=== PATIENT | female | born 1935 | race Caucasian/White ===

== ENCOUNTER → 2018-02-28 | Outpatient (CLI) | payer MEDICARE, OTHER ==
--- NOTE | 2018-03-01 18:15 | WOMENS IMAGING REPORT ---
EXAM DESCRIPTION: 3D SCREENING MAMMO BILAT COMPLETED DATE/TIME: 02/28/2018 1:22 pm REASON FOR STUDY: SCREENING BILATERAL MAMMO/Z12.31 Z12.31 ENCNTR SCREEN MAMMOGRAM FOR MALIGNANT JORJE PLASM OF ABBIE COMPARISON: 2008 to 2013 TECHNIQUE: Standard craniocaudal and mediolateral oblique views of each breast recorded using digita l acquisition and breast tomosynthesis. LIMITATIONS: None. FINDINGS: No masses, calcifications or architectural distortion. No areas of suspicion. Read with the assistance of CAD. .[facility] - R2 Cenova Version 1.3 .[facility] Imaging - R2 Cenova Version 1.3 .[facility] Imaging - R2 Cenova Version 2.4 .[facility] - R2 Cenova Version 2.4 .[facility] - R2 Enrobing Machine Corder Version 9.2 IMPRESSION: NORMAL MAMMOGRAM. BIRADS 1. BREAST DENSITY: b. There are scattered areas of fibroglandular density. BIRAD: 1 NEGATIVE RECOMMENDATION: ROUTINE SCREENING COMMENT: The patient has been notified of the results by letter per SA requirements. Additional no tification policies are in place for contacting patient with suspicious or incomplete findings. Quality ID #[id number]: The [employer] recommends an annual screening mammogram for women aged 40 years or over. This facility utilizes a reminder system to ensure that all patients receive reminder letters, and/or direct phone calls for appointments. This includes reminders for routine scr eening mammograms, diagnostic mammograms, or other Breast Imaging Interventions when appropriate. Th is patient will be placed in the appropriate reminder system. The [employer] (ACR) has developed recommendations for screening MRI of the breast s in certain patient populations, to be used in conjunction with mammography. Breast MRI surveillanc e may be appropriate for women with more than 20% lifetime risk of developing breast cancer as deter mined by genetic testing, significant family history of the disease, or history of mantle radiation f or Hodgkins Disease. ACR Practice Guidelines 2008. DBT Technology DBT is a type of tomographic mammography. With conventional mammography, overlapping breast tissue ma y make lesions difficult to detect, even with good compression. DBT uses an x-ray tube that rotates a round the breast, taking images at different angles. These images are then combined to create thin sl ices of the breast that the radiologist can view as a 3D reconstruction. The [employer] unit can perform full-field digital mammograms (2D imaging); or DBT (3D imaging); or both, in a combination mode that quickly performs both the mammogram and the tomosynthesis scan while the breast is still compressed. PQRS 6045F: Fluoroscopic imaging is not utilized for breast tomosynthesis. TECHNICAL DOCUMENTATION: FINDING NUMBER: (1) ASSESSMENT: (1) JOB ID: [id number] [employer]- All Rights Reserved Reading location - IP/workstation name: [email or web address]
== END ==
LOC: WI 12:45
PROVIDERS: ATTEND Internal Medicine
DX: Z12.31 Encounter for screening mammogram for malignant neoplasm of breast (principal)
CPT/HCPCS: 77063; 77067

== ENCOUNTER → 2018-05-08 | Outpatient (CLI) | payer MEDICARE, OTHER ==
--- NOTE | 2018-05-08 15:17 | RADIOLOGY REPORT (SQ) ---
EXAM DESCRIPTION: KUB COMPLETED DATE/TIME: 05/08/2018 12:56 pm REASON FOR STUDY: K59.01, CONSTIPATION-SLOW TRANSIT COMPARISON: None. NUMBER OF VIEWS: One view. TECHNIQUE: Supine radiographic image of the abdomen acquired. LIMITATIONS: None. FINDINGS: BOWEL GAS PATTERN: Normal bowel gas pattern. No dilated loops. CALCIFICATIONS: No suspicious calcifications. SOFT TISSUES: No gross mass or suggestion of organomegaly. HARDWARE: Surgical clips are identified in the right upper quadrant and right pelvis P BONES: Extensive degenerative changes are identified in the lumbar spine. There appears to be cortic al irregularity and associated bony sclerosis at the L1-L2 disc space level and the possibility of a discitis cannot be excluded. Lumbar spine films may be of value for further evaluation. Clinical co rrelation is recommended. OTHER: No other significant finding. IMPRESSION: NO RADIOGRAPHIC EVIDENCE FOR ACUTE ABDOMINAL DISEASE. Other findings as noted above. TECHNICAL DOCUMENTATION: JOB ID: [id number] [employer]- All Rights Reserved Reading location - IP/workstation name: [email or web address]
== END ==
LOC: OD 12:31
PROVIDERS: ATTEND Internal Medicine Gastroenterology
DX: K59.01 Slow transit constipation (principal)
CPT/HCPCS: 74018

== ENCOUNTER 2018-06-13 15:23 | Day surgery (SDC) | payer MEDICARE, OTHER ==
[2018-06-13] MEDS ORDERED: FENTANYL CITRATE INJ/PF 100 MCG/2 ML AMPUL ONE (15:27)
[2018-06-13] MEDS ORDERED: ONDANSETRON HCL INJ/PF 4 MG/2 ML SDV ONE (15:27)
[2018-06-13] MEDS ORDERED: NALOXONE HCL INJ/PF 0.4 MG/1 ML SDV ONE (15:28)
[2018-06-13] MEDS ORDERED: GLUCAGON,HUMAN RECOMB 1 MG INJ ONE (15:28)
[2018-06-13] MEDS ORDERED: EPINEPHRINE INJ 1 MG/10 ML DISP.SYRIN ONE (15:28)
[2018-06-13] MEDS ORDERED: FLUMAZENIL INJ 0.5 MG/5 ML VIAL ONE (15:28)
[2018-06-13] MEDS: MIDAZOLAM 2 MG/2 ML INJ ONE ×2 (16:26→16:30)
--- NOTE | 2018-06-13 16:54 | Operative Report ---
Operative Report DATE OF SURGERY: 06/13/18 Operative Report: Pre-op diagnosis: History of colon polyps and rectal bleeding with pressure Post-op diagnosis: 1. Pancolonic diverticulosis 2. Internal hemorrhoids 3. Incompetent anal sphincter Surgery: Colonoscopy Medications: Versed 2mg, Fentanyl 50mcg IV push Tissue removed: None Procedure: After informed consent obtained from patient, conscious sedation was achieved. A digital rectal examination was performed and this showed an incompetent sphincter. The colonoscope was inserted into the rectum and advanced to the cecum. The appendiceal orifice and the terminal ileum were both identified. The mucosa was examined into details as the colonoscope was slowly pulled out of the patient. The endoscope was retroflexed in the rectum. Patient tolerated the procedure well. Findings Cecum: Normal Ascending colon: Moderate diverticuli Transverse colon: Multiple diverticuli Descending colon: Mild to moderate diverticuli Sigmoid colon: Multiple diverticuli Rectum: Normal except for internal hemorrhoids Plan: High-fiber diet and fiber supplements OPERATION: .
[2018-06-13 17:38] VITALS: BP 140/98
== END 2018-06-13 17:45 | disposition home or self-care (01) ==
LOC: END 15:23
PROVIDERS: ATTEND Internal Medicine Gastroenterology
DX: K62.5 Hemorrhage of anus and rectum (principal); K57.30 Diverticulosis of large intestine without perforation or abscess without bleeding; K64.8 Other hemorrhoids; Z86.010 Personal history of colon polyps; I10 Essential (primary) hypertension
CPT/HCPCS: 45378; 82962; J2250; J3010; J0171; J1610; J2310; J2405; J3490

== ENCOUNTER → 2018-07-27 | Outpatient (CLI) | payer MEDICARE, OTHER ==
--- NOTE | 2018-07-27 13:41 | WOMENS IMAGING REPORT ---
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 TECHNIQUE: Dual-Energy X-ray Absorptiometry (DEXA) of the AP Spine and Hip. LIMITATIONS: None. FINDINGS: LUMBAR SPINE: The bone mineral density (BMD) measured from L1-L4 in the AP projection correlates with a T-score of 2.5, which is normal as defined by the World Health Organization. HIP: The bone mineral density (BMD) measured in the left hip correlates with a T-score of -0.6, which is n ormal as defined by the World Health Organization. IMPRESSION: 1. LUMBAR SPINE: NORMAL. 2. HIP: NORMAL. COMMENT: The World Health Organization defines low BMD as follows: T-score: Normal: Greater than -1.0 Osteopenia: Between -1.0 and -2.5 Osteoporosis: Less than -2.5 without fractures Established osteoporosis: Less than -2.5 with fractures In general, you may wish to consider: Diagnosis Treatment Follow-up DEXA Normal BMD Prevention 2-3 years Osteopenia Prevention/Therapy 1-2 years Osteoporosis Therapy Yearly TECHNICAL DOCUMENTATION: JOB ID: [id number] [employer]- All Rights Reserved Reading location - IP/workstation name: [email or web address]
== END ==
LOC: WI 12:41
PROVIDERS: ATTEND Internal Medicine
DX: M81.0 Age-related osteoporosis without current pathological fracture (principal)
CPT/HCPCS: 77080

== ENCOUNTER → 2019-02-01 | Outpatient (CLI) | payer MEDICARE, OTHER ==
--- NOTE | 2019-02-01 15:35 | RADIOLOGY REPORT (SQ) ---
EXAM DESCRIPTION: KUB/ABDOMEN (SINGLE VIEW) COMPLETED DATE/TIME: 02/01/2019 2:17 pm REASON FOR STUDY: CONSTIPATION; SLOW TRANSIT (K59.01) K59.01 SLOW TRANSIT CONSTIPATION COMPARISON: None. NUMBER OF VIEWS: One view. TECHNIQUE: Supine radiographic image of the abdomen acquired. LIMITATIONS: None. FINDINGS: BOWEL GAS PATTERN: Normal bowel gas pattern. No dilated loops. CALCIFICATIONS: No suspicious calcifications. SOFT TISSUES: No gross mass or suggestion of organomegaly. HARDWARE: None in the abdomen. BONES: Lumbar degenerative changes. OTHER: No other significant finding. IMPRESSION: Lumbar degenerative changes. No acute finding in the abdomen. TECHNICAL DOCUMENTATION: JOB ID: [id number] [employer]- All Rights Reserved Reading location - IP/workstation name: [email or web address]
== END ==
LOC: RAD 13:40
PROVIDERS: ATTEND Internal Medicine Gastroenterology
DX: K59.01 Slow transit constipation (principal)
CPT/HCPCS: 74018

== ENCOUNTER 2019-06-15 15:20 | Emergency (ER) | payer MEDICARE, OTHER ==
--- NOTE | 2019-06-15 16:59 | ER Document Report ---
ED General - General Chief Complaint: Hip Pain Stated Complaint: PAIN IN HIP Time Seen by Provider: 06/15/19 16:55 Primary Care Provider: FRANDY MARKS MD [Primary Care Provider] - 06/17/19 TRAVEL OUTSIDE OF THE [place] IN LAST 30 DAYS: No - HPI Context: This is a 83-year-old female who presents via EMS for evaluation of pelvis pain, patient x3 to 4 days, and blood in her underwear. Initial vital signs by EMS are as follows blood pressure 114/60, heart rate 73, respiratory rate is 18, O2 sat is 93%. Patient is complaining of low back pain that radiates down the back of both buttocks and into both legs bilaterally. The patient states she is also having trouble with urinary and stool incontinence. Patient states she has a history of osteomyelitis in her lumbar vertebra back in 2007 and she also feels like "things are falling out" of her vagina and rectum. Notes: Patient presents complaining of low back pain that radiates down the back of both buttocks and down the posterior both legs. Patient denies urinary retention or bowel incontinence but states that she is had a long period of urinary leakage that requires her to wear a pad and from time to time stool leakage. Patient states she has severe back pain that started 5 days ago. Patient denies foot drop. Patient also feels like something is "dropping down inside her vagina". Patient denies chest pain, shortness of breath, abdominal pain. Differential diagnosis: Degenerative disc disease, sciatica, cord compression, cauda equina - Related Data Allergies/Adverse Reactions: ciprofloxacin [From Cipro] Allergy (Intermediate, Verified 06/13/18 15:33) rash ciprofloxacin HCl [From Cipro] Allergy (Intermediate, Verified 06/13/18 15:33) rash vancomycin [Vancomycin] Allergy (Intermediate, Verified 06/13/18 15:33) rash Past Medical History - Social History Smoking Status: Never Smoker Chew tobacco use (# tins/day): No Drug Abuse: None Family History: Reviewed & Not Pertinent Patient has suicidal ideation: No Patient has homicidal ideation: No - Medical History Notes: Patient has a past medical history significant for hypercholesterolemia, hypertension, pneumonia, sleep apnea with as needed CPAP utilization, history of diverticulosis, history of cholecystectomy and 1993, history of kidney stones during the , history of lumbar spine arthritis, left knee osteoarthritis, osteopenia, vertebral (lumbar) osteomyelitis in 2007. Patient also has a history of right patella fracture, left ankle fracture x2 and left forearm fracture. Patient also has a history of hypothyroidism for which she is been on medication for 30 years - Past Medical History Cardiac Medical History: Reports: Hx Hypercholesterolemia - meds x 3 years, Hx Hypertension - meds x 10 years Denies: Hx Atrial Fibrillation, Hx Congestive Heart Failure, Hx Coronary Artery Disease, Hx Heart Attack, Hx Peripheral Vascular Disease, Hx Pulmonary Embolism, Hx Heart Murmur Pulmonary Medical History: Reports: Hx Pneumonia - no hospitalization, Hx Sleep Apnea - "mild", prn CPAP utilization Denies: Hx Asthma, Hx Bronchitis, Hx COPD, Hx Respiratory Failure, Hx Tu berculosis Neurological Medical History: Denies: Hx Seizures Endocrine Medical History: Reports: Hx Hypothyroidism - meds x 30 years. Denies: Hx Graves' Disease, Hx Hyperthyroidism Renal/ Medical History: Reports: Hx Kidney Stones - "passed" no surgery required, . Denies: Hx End Stage Renal Disease, Hx Peritoneal Dialysis Malignancy Medical History: Denies: Hx Lung Cancer GI Medical History: Denies: Hx Crohn's Disease, Hx Gastroesophageal Reflux Disease, Hx Hiatal Hernia, Hx Irritable Bowel, Hx Liver Failure, Hx Pancreatitis, Hx Ulcer Musculoskeletal Medical History: Reports Hx Arthritis - lumbar spine, Denies Hx Fibromyalgia, Denies Hx Muscular Dystrophy, Denies Hx Systemic Lupus Erythematosus Psychiatric Medical History: Reports: Hx Depression - Hx of 1964 & 1972 Denies: Hx Bipolar Disorder, Hx Post Traumatic Stress Disorder, Hx Schizophrenia Traumatic Medical History: Reports: Hx Fractures - RT patella, LEFT ankle x 2 (no surgery), LEFT forearm Past Surgical History: Reports: Hx Cholecystectomy - open 1982, Hx Orthopedic Surgery, Hx Tonsillectomy, Hx Tubal Ligation. Denies: Hx Appendectomy, Hx Bowel Surgery, Hx Section, Hx Colostomy, Hx Coronary Artery Bypass Graft, Hx Gastric Bypass Surgery, Hx Herniorrhaphy, Hx Hysterectomy, Hx Mastectomy, Hx Pacemaker - Immunizations Hx Diphtheria, Pertussis, Tetanus Vaccination: Yes Hx Pneumococcal Vaccination: 08/29/10 Review of Systems - Review of Systems Constitutional: No symptoms reported EENT: No symptoms reported Cardiovascular: No symptoms reported Respiratory: No symptoms reported Gastrointestinal: Diarrhea, Constipation Genitourinary: No symptoms reported Female Genitourinary: Other - urinary incontinence Musculoskeletal: See HPI Skin: No symptoms reported Hematologic/Lymphatic: No symptoms reported Neurological/Psychological: See HPI -: Yes All other systems reviewed and negative Physical Exam - Vital signs Vitals: Temp Pulse Resp BP Pulse Ox 97.4 F 78 18 118/68 97 06/15/19 15:33 06/15/19 15:33 06/15/19 15:33 06/15/19 15:33 06/15/19 15:33 - Notes Notes: PHYSICAL EXAMINATION: GENERAL: Well-appearing, morbidly obese, in no acute distress. HEAD: Atraumatic, normocephalic. EYES: Pupils equal round and reactive to light, extraocular movements intact, sclera anicteric, conjunctiva are normal. ENT: nares patent, oropharynx clear without exudates. Moist mucous membranes. NECK: Normal range of motion, supple without lymphadenopathy LUNGS: Breath sounds clear to auscultation bilaterally and equal. No wheezes rales or rhonchi. HEART: Regular rate and rhythm without murmurs ABDOMEN: Soft, nontender, normoactive bowel sounds. No guarding, no rebound. No masses appreciated. Normal rectal tone. : Normal external genitalia. No uterine prolapse appreciated on exam EXTREMITIES: pt able to abduct and adduct thighs, no pitting or edema. No cyanosis. + SLR left leg at 70 degrees. + SLR right leg at 45 degrees NEUROLOGICAL: No focal neurological deficits. Moves all extremities spontaneously and on command. PSYCH: Normal mood, normal affect. SKIN: Warm, Dry, normal turgor, no rashes or lesions noted. Course - Re-evaluation Re-evalutation: 06/16/19 00:17 Patient urinalysis is significant for leukocyte esterase, nitrites and yeast. Impression and plan: Degenerative disc disease, sciatica, UTI, yeast present in urine. Will give patient one-time dose of Diflucan now along with Keflex. Will discharge patient with prescription for Keflex 500 mg 4 times daily x7 days and prednisone 60 mg p.o. daily x4 days. Will refer pt to Dr. Heath in [place] for further discussion, options for treatment of pt's c/o of urine prolapse. - Vital Signs Vital signs: Temp Pulse Resp BP Pulse Ox 97.4 F 78 18 118/68 97 06/15/19 15:33 06/15/19 15:33 06/15/19 15:33 06/15/19 15:33 06/15/19 15:33 - Laboratory Result Diagrams: 06/15/19 19:00 06/15/19 19:00 Laboratory results interpreted by me: 06/15/19 06/15/19 06/15/19 19:00 19:00 22:42 [place] % (Auto) 16.3 H Carbon Dioxide 31 H BUN 28 H Est GFR (MDRD) Non-Af 54 L Urine Blood SMALL H Urine Nitrite (Reflex) POSITIVE H Urine Urobilinogen 2.0 H Leukocyte Esterase Rfl SMALL H Discharge - Discharge Clinical Impression: Degenerative disc disease, Sciatica, UTI (urinary tract infection) Condition: Stable Disposition: HOME, SELF-CARE Instructions: Urinary Tract Infection ([facility]), Sciatica ([facility]) Additional Instructions: Return to the Emergency Department without delay if any worse. Prescriptions: Prednisone [Deltasone 20 mg Tablet] 3 tab PO DAILY 4 Days #12 tablet Cephalexin Monohydrate [Keflex 500 mg Capsule] 500 mg PO Q6H 7 Days #28 capsule Referrals: FRANDY MARKS MD [Primary Care Provider] - 06/17/19 ROSEMARIE HEATH MD [ACTIVE STAFF] - Follow up as needed (Call for appointment)
[2019-06-15 19:47] LABS: ABSOLUTE LYMPHOCYTES (AUTO) 1.2 10^3/uL (0.5-4.7); ABSOLUTE NEUT (AUTO) 3.7 10^3/uL (1.7-8.2); BASOPHILS % (AUTO) 0.3 % (0-2); HEMATOCRIT 39.6 % (36.0-47.0); HEMOGLOBIN 13.2 g/dL (12.0-15.5); LYMPHOCYTES % (AUTO) 20.4 % (13-45); MEAN CORPUSCULAR HEMOGLOBIN 29.5 pg (27.0-33.4); MEAN CORPUSCULAR HGB CONC 33.2 g/dL (32.0-36.0); MEAN CORPUSCULAR VOLUME 89 fl (80-97); MONOCYTES % (AUTO) 16.3 % (3-13); PLATELET COUNT 167 10^3/uL (150-450); RED BLOOD COUNT 4.46 10^6/uL (3.72-5.28); RED CELL DISTRIBUTION WIDTH 13.7 % (11.5-14.0); TOTAL CELLS COUNTED % (AUTO) 100 %; WHITE BLOOD COUNT 5.9 10^3/uL (4.0-10.5)
[2019-06-15 19:57] LABS: ALBUMIN 3.9 g/dL (3.5-5.0); ALKALINE PHOSPHATASE 54 U/L (38-126); ANION GAP 9 (5-19); ASPARTATE AMINO TRANSFERASE 34 U/L (14-36); BILIRUBIN,DIRECT 0.3 mg/dL (0.0-0.4); BILIRUBIN,TOTAL 0.5 mg/dL (0.2-1.3); BLOOD UREA NITROGEN 28 mg/dL (7-20); CALCIUM 9.9 mg/dL (8.4-10.2); CARBON DIOXIDE 31 mmol/L (22-30); CHLORIDE 100 mmol/L (98-107); GLUCOSE 82 mg/dL (75-110); POTASSIUM 3.8 mmol/L (3.6-5.0); TOTAL PROTEIN 6.6 g/dL (6.3-8.2)
--- NOTE | 2019-06-15 21:09 | RADIOLOGY REPORT (SQ) ---
EXAM DESCRIPTION: RadLex: MR LUMBAR SPINE WITHOUT THEN WITH IV CONTRAST CLINICAL HISTORY: 83 years Female; low back pain, trouble with bowel/bladder fxn TECHNIQUE: MRI lumbar spine with and without contrast using intravenous contrast. COMPARISON: None. FINDINGS: T11-T12: Severe disc space narrowing. Mild posterior disc bulging. Facet arthropathy. Central canal 9 mm. T12-L1: There is old compression fracture deformity of L1, with 80% anterior and 40% posterior loss of height. There is also slight wedging of the T12 vertebral body. Fluid signal is noted in the disc space. There is chronic anterior osteophyte formation with probable fusion. A band of fluid/edema does extend anteriorly to the osteophytes. No acute bone marrow edema. Retropulsion and bilateral facet arthropathy reduce the AP diameter of the central canal to approximately 4 mm, with obliteration of the subarachnoid space. This causes significant deformity of the conus medullaris. L1-L2: Fusion across the disc space. Mild facet hypertrophy. Central canal is 8 mm. L2-L3: Mild disc bulging. Central canal 6 mm. Mild facet arthropathy. L3-L4: Moderate bilateral facet arthropathy. Broad posterior disc bulging and osteophytic ridging. AP diameter of the central canal is reduced to 5 mm, with near obliteration of the subarachnoid space. Moderate bilateral foraminal stenosis. L4-L5: Severe bilateral facet arthropathy. 3 mm anterior subluxation. Severe central canal stenosis. AP diameter of the canal is less than 3-4 mm. L5-S1: Moderate facet arthropathy. Minimal disc bulging. Central canal 6 mm. No acute perivertebral soft tissue edema. No epidural fluid collections. IMPRESSION: 1. 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 2. There is deformity of the conus medullaris due to the T12-L1 central stenosis. This is mostly due to old T12 and L1 fractures. 3. There is fluid in the T12-L1 disc space, but no adjacent bone marrow edema or surrounding soft tissue edema. Although discitis cannot be entirely excluded, likelihood for discitis is low. However, cannot exclude a fracture through the anterior bridging osteophytes at T12-L1.
[2019-06-15] MEDS ORDERED: HYDROMORPHONE HCL INJ/PF 2 MG/ML AMPULE IV ONE (21:59)
[2019-06-15] MEDS ORDERED: ONDANSETRON HCL INJ/PF 4 MG/2 ML SDV IV ONE (22:00)
[2019-06-15] MEDS ORDERED: METHYLPREDNISOLONE INJ 125 MG/2 ML SDV IV ONE (22:04)
[2019-06-16 00:07] LABS: APPEARANCE,URINE CLOUDY; BILIRUBIN,URINE NEGATIVE (NEGATIVE); COLOR,URINE YELLOW; GLUCOSE, URINE NEGATIVE (NEGATIVE); KETONES,URINE NEGATIVE (NEGATIVE); PROTEIN,URINE NEGATIVE (NEGATIVE); URINE SPECIFIC GRAVITY 1.015
[2019-06-16] MEDS ORDERED: FLUCONAZOLE 100 MG TABLET PO ONE ×2 (00:16→03:00)
[2019-06-16] MEDS ORDERED: CEPHALEXIN 500 MG CAPSULE PO ONE ×2 (00:17→03:00)
[2019-06-16 03:34] VITALS: BP 120/66
== END 2019-06-16 02:15 | disposition home or self-care (01) ==
LOC: ER 15:20
DX: M51.17 Intervertebral disc disorders with radiculopathy, lumbosacral region (principal); N39.0 Urinary tract infection, site not specified; R19.7 Diarrhea, unspecified; K59.00 Constipation, unspecified; R32 Unspecified urinary incontinence; R10.2 Pelvic and perineal pain; I10 Essential (primary) hypertension; Z87.442 Personal history of urinary calculi; Z88.1 Allergy status to other antibiotic agents
CPT/HCPCS: 99284; 96374; 96375; 86900; 86901; 36415; 87086; 86850; 85025; 87088; 80053; 81001; 87186; 72158; A9576; A9270 ×2; J2930; J1170; J2405

== ENCOUNTER → 2019-08-14 | Outpatient (CLI) | payer MEDICARE, OTHER ==
--- NOTE | 2019-08-16 11:51 | XCELERA REPORT ---
[address] [address] Lower Extremity Arterial Evaluation Name: MARY LEE Age: 83 yrs Gender: Female : 1935 Patient Status: Outpatient Patient Location: [facility] Study Date: 08/14/2019 02:17 PM Procedure: A color flow and duplex scan of the lower extremity arteries was performed bilaterally with velocity and waveform anaylsis. 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 Biphasic with normal velocity in the Posterior tibial artery. Oval, lucent, non vascular structure in the Popliteal fossa, 6.7 x 1.8 x 3.9 cms. Ankle Brachial index not done. Left Side Arterial Evaluation Normal velocity and triphasic waveforms noted from the Common Femoral artery to the Popliteal . Biphasic with normal velocity in the infrageniculate arteries. Lucent spaces in the subcutaneous tissues of the leg. Ankle Brachial index not done. Interpretation Summary Mild hemodynamically significant lesions in the bilateral lower extremities, on duplex imaging, at rest. The duplex findings indicate very mild changes in the infrageniculate vessels. This may not be of much clinical consequence. A large Popliteal cyst is noted on the right. Subcutaneous edema in the left leg is seen on ultrasound rutherford scale. : LIZZIE CASEY > Lizzie Casey
== END ==
LOC: SP 13:26
PROVIDERS: ATTEND Surgery
DX: M79.662 Pain in left lower leg (principal); M71.21 Synovial cyst of popliteal space [Baker], right knee; M79.661 Pain in right lower leg
CPT/HCPCS: 93925

== ENCOUNTER 2019-11-16 09:21 | Inpatient (IN) | payer MEDICARE, OTHER ==
[2019-11-16 10:07] LABS: HEMATOCRIT 37.3 % (36.0-47.0); HEMOGLOBIN 12.9 g/dL (12.0-15.5); MEAN CORPUSCULAR HEMOGLOBIN 30.4 pg (27.0-33.4); MEAN CORPUSCULAR HGB CONC 34.7 g/dL (32.0-36.0); MEAN CORPUSCULAR VOLUME 88 fl (80-97); PLATELET COUNT 159 10^3/uL (150-450); RED BLOOD COUNT 4.25 10^6/uL (3.72-5.28); RED CELL DISTRIBUTION WIDTH 13.6 % (11.5-14.0); WHITE BLOOD COUNT 14.8 10^3/uL (4.0-10.5)
[2019-11-16 10:17] LABS: INTERNATIONAL RATION (INR) 1.11; PROTHROMBIN TIME 14.4 SEC (11.4-15.4)
[2019-11-16 10:19] LABS: A TYPE INFLUENZA AG NEGATIVE (NEGATIVE); B INFLUENZA AG NEGATIVE (NEGATIVE)
[2019-11-16 10:33] LABS: ABSOLUTE LYMPHOCYTES# (MANUAL) 1.3 10^3/uL (0.5-4.7); ABSOLUTE MONOCYTES # (MANUAL) 1.2 10^3/uL (0.1-1.4); BAND NEUTROPHILS % (MANUAL) 2 % (3-5); BASOPHILS % (MANUAL) 0 % (0-2); EOSINOPHILS % (MANUAL) 0 % (0-6); LYMPHOCYTES % (MANUAL) 9 % (13-45); MONOCYTES % (MANUAL) 8 % (3-13); SEGMENTED NEUTROPHILS % (MAN) 81 % (42-78); TOTAL CELLS COUNTED 100
[2019-11-16 10:35] LABS: PLATELET COMMENT ADEQUATE; RBC MORPHOLOGY COMMENT NORMO-CYTIC/CHROMIC; TOXIC GRANULATION SLIGHT
[2019-11-16 10:36] LABS: ALBUMIN 3.8 g/dL (3.5-5.0); ALKALINE PHOSPHATASE 62 U/L (38-126); ANION GAP 12 (5-19); ASPARTATE AMINO TRANSFERASE 35 U/L (14-36); BILIRUBIN,DIRECT 0.3 mg/dL (0.0-0.4); BILIRUBIN,TOTAL 1.2 mg/dL (0.2-1.3); BLOOD UREA NITROGEN 38 mg/dL (7-20); CALCIUM 9.7 mg/dL (8.4-10.2); CARBON DIOXIDE 25 mmol/L (22-30); CHLORIDE 103 mmol/L (98-107); GLUCOSE 126 mg/dL (75-110); POTASSIUM 3.6 mmol/L (3.6-5.0); TOTAL PROTEIN 6.7 g/dL (6.3-8.2)
[2019-11-16] MEDS ORDERED: NORMAL SALINE 1000 ML 1,000 ML IV ONE (10:36)
[2019-11-16 10:43] LABS: VENOUS BLOOD BASE EXCESS -2.1 mmol/L; VENOUS BLOOD HCO3 22.2 mmol/L (20-32); VENOUS BLOOD PCO2 36.6 mmHg (35-63); VENOUS BLOOD PH 7.4 (7.30-7.42)
--- NOTE | 2019-11-16 10:46 | RADIOLOGY REPORT (SQ) ---
EXAM DESCRIPTION: CHEST SINGLE VIEW COMPLETED DATE/TIME: 11/16/2019 10:03 am REASON FOR STUDY: flu s/s COMPARISON: Chest films 03/18/2014, 07/22/2008 EXAM PARAMETERS: NUMBER OF VIEWS: One view. TECHNIQUE: Single frontal radiographic view of the chest acquired. RADIATION DOSE: NA LIMITATIONS: None. FINDINGS: LUNGS AND PLEURA: No opacities, masses or pneumothorax. No pleural effusion. MEDIASTINUM AND HILAR STRUCTURES: No masses. Contour normal. HEART AND VASCULAR STRUCTURES: Heart normal in size. Normal vasculature. BONES: Advanced arthritis both shoulders HARDWARE: None in the chest. OTHER: No other significant finding. IMPRESSION: NO ACUTE RADIOGRAPHIC FINDING IN THE CHEST. TECHNICAL DOCUMENTATION: JOB ID: [id number] [employer]- All Rights Reserved Reading location - IP/workstation name: [email or web address]
[2019-11-16 10:53] LABS: APPEARANCE,URINE CLOUDY; BILIRUBIN,URINE NEGATIVE (NEGATIVE); COLOR,URINE YELLOW; GLUCOSE, URINE NEGATIVE (NEGATIVE); KETONES,URINE NEGATIVE (NEGATIVE); LEUKOCYTE ESTERASE,URINE SMALL (NEGATIVE); NITRITE,URINE POSITIVE (NEGATIVE); PROTEIN,URINE 30 mg/dL (NEGATIVE); URINE SPECIFIC GRAVITY 1.014; UROBILINOGEN,URINE NEGATIVE mg/dL (<2.0)
--- NOTE | 2019-11-16 11:02 | ER Document Report ---
Entered by MARTHA OWENS SCRIBE 11/16/19 1040 Acting as scribe for:JALEESA BENITEZ MD ED Flu Like - General Chief Complaint: Flu Symptoms Stated Complaint: FLU SYMPTOMS Time Seen by Provider: 11/16/19 09:51 Mode of Arrival: Medic Information source: Patient Notes: This 84 year old female patient presents to the emergency department today with complaints of fevers of 103.9 which started last night. Patient states that she has a non-productive cough but adds that it is "not that bad". Patient states that she has also felt generally weak with low back pain which is chronic, she is in pain management for this. Patient also complains of nausea. Patient states she has not vomited and she denies a sore throat. TRAVEL OUTSIDE OF THE [place] IN LAST 30 DAYS: No - Related Data Allergies/Adverse Reactions: ciprofloxacin [From Cipro] Allergy (Intermediate, Verified 06/13/18 15:33) rash ciprofloxacin HCl [From Cipro] Allergy (Intermediate, Verified 06/13/18 15:33) rash vancomycin [Vancomycin] Allergy (Intermediate, Verified 06/13/18 15:33) rash Past Medical History - General Information source: Patient - Social History Smoking Status: Former Smoker - quit in 2008 Frequency of alcohol use: None Drug Abuse: None Lives with: Family Family History: Reviewed & Not Pertinent Patient has suicidal ideation: No Patient has homicidal ideation: No - Past Medical History Cardiac Medical History: Reports: Hx Hypercholesterolemia, Hx Hypertension Pulmonary Medical History: Reports: Hx Pneumonia - no hospitalization, Hx Sleep Apnea - "mild", prn CPAP utilization Endocrine Medical History: Reports: Hx Hypothyroidism - meds x 30 years Renal/ Medical History: Reports: Hx Kidney Stones - "passed" no surgery required, Musculoskeletal Medical History: Reports Hx Arthritis - lumbar spine Psychiatric Medical History: Reports: Hx Depression - Hx of 1964 & 1972 Traumatic Medical History: Reports: Hx Fractures - RT patella, LEFT ankle x 2 (no surgery), LEFT forearm Past Surgical History: Reports: Hx Cholecystectomy - open 1982, Hx Orthopedic Surgery, Hx Tonsillectomy, Hx Tubal Ligation - Immunizations Hx Diphtheria, Pertussis, Tetanus Vaccination: Yes Hx Pneumococcal Vaccination: 08/29/10 Review of Systems - Review of Systems Constitutional: See HPI, Fever, Weakness EENT: denies: Throat pain Cardiovascular: No symptoms reported Respiratory: See HPI, Cough, Short of breath Gastrointestinal: See HPI, Nausea. denies: Vomiting Genitourinary: No symptoms reported Female Genitourinary: No symptoms reported Musculoskeletal: See HPI, Back pain Skin: No symptoms reported Hematologic/Lymphatic: No symptoms reported Neurological/Psychological: No symptoms reported -: Yes All other systems reviewed and negative Physical Exam - Vital signs Vitals: Resp Pulse Ox 19 94 11/16/19 09:35 11/16/19 09:35 - Notes Notes: Physical Exam: General: Alert, appears age appropriate. HEENT: Normocephalic. Atraumatic. PERRL. Extraocular movements intact. Oropharynx clear. Neck: Supple. Non-tender. Respiratory: No respiratory distress. Clear and equal breath sounds bilaterally. Cardiovascular: Regular rate and rhythm. Abdominal: Obese. Non-tender. No distension. Normal Bowel Sounds. Back: No gross abnormalities. Extremities: Moves all four extremities. Upper extremities: Normal inspection. Normal ROM. Lower extremities: Lower extremity edema. Neurological: Normal cognition. AAOx4. Normal speech. Psychological: Normal affect. Normal Mood. Skin: Warm. Dry. Normal color. Course - Re-evaluation Re-evalutation: 11/16/19 12:47 After 2 L of IV fluids, the patient's blood pressure is now up to 133/53 11/16/19 12:55 I went in to check on the patient. She is feeling better. She was standing up after getting up off the hcrissy potty. She has a large prolapsed rectum which is easily reducible, but it will not stay up. It is long enough that it easily could have been in the urine that was collected when her urine was collected from urinating and a bedpan. We will repeat the urinalysis with a catheterized urine and culture that one. - Vital Signs Vital signs: Temp Pulse Resp BP Pulse Ox 98.4 F 20 133/53 H 94 11/16/19 12:06 11/16/19 12:06 11/16/19 12:06 11/16/19 12:06 - Laboratory Result Diagrams: 11/16/19 09:40 11/16/19 09:40 Laboratory results interpreted by me: 11/16/19 11/16/19 11/16/19 09:40 09:40 10:10 WBC 14.8 H Seg Neuts % (Manual) 81 H Band Neutrophils % 2 L Lymphocytes % (Manual) 9 L Abs Neuts (Manual) 12.3 H BUN 38 H Est GFR (MDRD) Non-Af 56 L Glucose 126 H POC Glucose 133 H Urine Protein Urine Blood Urine Nitrite Ur Leukocyte Esterase 11/16/19 10:25 WBC Seg Neuts % (Manual) Band Neutrophils % Lymphocytes % (Manual) Abs Neuts (Manual) BUN Est GFR (MDRD) Non-Af Glucose POC Glucose Urine Protein 30 H Urine Blood MODERATE H Urine Nitrite POSITIVE H Ur Leukocyte Esterase SMALL H - Diagnostic Test Radiology reviewed: Image reviewed, Reports reviewed - Chest x-ray does not show acute radiographic findings. - EKG Interpretation by Me EKG shows normal: Sinus rhythm, [place], Intervals, QRS Complexes, ST-T Waves Rate: Normal - 93 Rhythm: NSR [place]/QRS: LAHB/LAFB When compared to previous EKG there are: No significant change - Consults Dr. Greene Time consulted: 12:45 Consulted provider: will come to ER Discharge - Discharge Clinical Impression: Urinary tract infection, Sepsis, Leukocytosis, Fever, Hypotension, Rectal prolapse Condition: Fair Disposition: ADMITTED INPATIENT Admitting Provider: Ramona (Hospitalist) Unit Admitted: Medical Floor I personally performed the services described in the documentation, reviewed and edited the documentation which was dictated to the scribe in my presence, and it accurately records my words and actions.
[2019-11-16] MEDS ORDERED: CEFTRIAXONE 1 GM/D5W RTU 1 GM/50 ML RTUPB IV ONE (11:46)
[2019-11-16] MEDS ORDERED: RINGERS SOLUTION,LACTATED 1,000 ML IV ONE (12:05)
--- NOTE | 2019-11-16 13:42 | PDOC H&P ---
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 She has been having trouble with rectal prolapse and likely prolapsed bladder lately. She states that earlier this week she was scheduled to go to 2 appointments in [place]. One was her folder stitcher operator and the other was Social Security. She did not feel well and returned home. The patient does have a home health aide that visits on Tuesday, Tuesday and Tuesday. The patient's daughter states that EMS was called to her house twice yesterday. The daughter reports that her mother was confused last evening but by the time she got to the house EMS had gone. The home health arrived this morning and appreciated the fact that the patient was not well and called EMS after calling the patient's daughter advising her to come to the house. Valuation the emergency department revealed a fever of 103.7 degrees. Elevated white blood cell count and hypotension with a map of 60. The urinalysis was markedly positive. A culture was sent. The patient also had a rectal prolapse and this was reduced by the emergency department physician. The patient meets sepsis cri teria with her hypotension and altered mental status. In addition, prior to this encounter she was tachypneic with a respiratory rate in the 30s as reported by her nurse on the floor. In addition she has exhibited signs of metabolic encephalopathy most likely due to the infection. She did not quite remember the details of EMS coming to her house last night and was somewhat confused about details of her recent history. She was referred to the hospital service for admission. Past Medical History Cardiac Medical History: Reports: Hyperlipidema, Hypertension Denies: Atrial Fibrillation, Congestive Heart Failure, Coronary Artery Disease, Myocardial Infarction, Peripheral Vascular Disease, Pulmonary Embolism, Heart Murmur Pulmonary Medical History: Reports: Pneumonia - no hospitalization, Sleep Apnea - "mild", prn CPAP utilization Denies: Asthma, Bronchitis, Chronic Obstructive Pulmonary Disease (COPD), Respiratory Failure, Tuberculosis EENT Medical History: Reports: Eyes - [place] Neurological Medical History: Reports: Other - Diabetic neuropathy Denies: Ischemic CVA, Seizures Endocrine Medical History: Reports: Diabetes Mellitus Type 2, Hypothyroidism - meds x 30 years Denies: Hyperthyroidism Renal/ Medical History: Reports: Other - Recurrent urinary tract infections. Likely prolapsed bladder. Denies: End Stage Renal Disease Malignancy Medical History: Denies: Breast Cancer, Colorectal Cancer, Lung Cancer GI Medical History: Reports: Other - Rectal prolapse Denies: Crohn's Disease, Gastroesophageal Reflux Disease, Hiatal Hernia Musculoskeltal Medical History: Reports: Arthritis - lumbar spine Denies: Fibromyalgia Skin Medical History: Reports: None Psychiatric Medical History: Reports: Depression - Hx of 1964 & 1972 Denies: Bipolar Disorder, Post Traumatic Stress Disorder Hematology: Denies: Anemia, Heparin Induced Thrombocytopenia Infectious Medical History: Reports: Other Infectious History Note: Osteomyelitis lumbar spine, recurrent urinary tract infections Past Surgical History Past Surgical History: Reports: Cholecystectomy - open 1982, Orthopedic Surgery, Tonsillectomy, Tubal Ligation Denies: Amputation, Appendectomy, Section, Colostomy, Coronary Artery Bypass Graft, Gastric Bypass Surgery, Herniorrhaphy, Hysterectomy, Mas tectomy, Pacemaker Social History Information Source: Patient, Relative - The patient's daughter, POA - Power of Clay Modeler - The healthcare POA is the patient's daughter Lives with: Alone, Other - Home health aide visits the patient on Tuesday, Tuesday and Tuesday Smoking Status: Former Smoker - quit in 2008 Electronic Cigarette use?: No Frequency of Alcohol Use: None Hx Recreational Drug Use: No Hx Prescription Drug Abuse: No - Advance Directive Resuscitation Status: Do Not Resuscitate Surrogate healthcare decision maker:: Confirmed by the patient's daughter who is the healthcare POA. I encouraged her to bring a copy of the document to the hospital. Family History Family History: Reviewed & Not Pertinent, CAD, COPD, Malignancy Parental Family History Reviewed: Yes Children Family History Reviewed: Yes Sibling(s) Family History Reviewed.: Yes Medication/Allergy Home Medications: Celecoxib [Celebrex 200 mg Capsule] 200 mg PO Q12 03/27/14 Levothyroxine Sodium [Synthroid] 100 mcg PO Q6AM 03/27/14 Metaxalone [Skelaxin 800 mg Tablet] 800 mg PO Q8 03/27/14 Cholecalciferol (Vitamin D3) [Vitamin D] 50,000 unit PO .QWEEKLY 06/12/18 Fenofibrate Nanocrystallized [Tricor 145 mg Tablet] 145 mg PO QHS 06/12/18 Amitriptyline HCl [Elavil 25 mg Tablet] 50 mg PO QHS 11/16/19 Aspirin [Ecotrin 81 mg EC Tablet] 81 mg PO DAILY 11/16/19 Betaxolol HCl [Betoptic S] 11/16/19 Brimonidine Tartrate [Alphagan P] drop 11/16/19 Famciclovir 500 mg PO DAILY 11/16/19 Loratadine [Claritin] 10 mg PO DAILY 11/16/19 Metformin HCl [Metformin HCl ER] 1,000 mg PO DAILY 11/16/19 Oxycodone HCl/Acetaminophen [Oxycodon-Acetaminophen 7.5-325] 1 each PO Q8HP PRN 11/16/19 Potassium Chloride [Klor-Con 10 Meq Tablet ER] 10 meq PO DAILY 11/16/19 Pravastatin Sodium 10 mg PO QHS 11/16/19 Prednisolone Acetate [Inflamase 1% Oph Susp 5 ml] drop 11/16/19 Pregabalin 100 mg PO Q8 11/16/19 Sitagliptin Phosphate [Januvia 50 mg Tablet] 100 mg PO DAILY 11/16/19 Telmisartan/Hydrochlorothiazid [Telmisartan-Hctz 80-25 mg Tab] 1 each PO DAILY 11/16/19 Allergies/Adverse Reactions: ciprofloxacin [From Cipro] Allergy (Intermediate, Verified 06/13/18 15:33) rash ciprofloxacin HCl [From Cipro] Allergy (Intermediate, Verified 06/13/18 15:33) rash vancomycin [Vancomycin] Allergy (Intermediate, Verified 06/13/18 15:33) rash Review of Systems All systems: reviewed and no additional remarkable complaints except as stated Respiratory: PRESENT: dyspnea Gastrointestinal: PRESENT: constipation Genitourinary: PRESENT: other - Urinary incontinence Integumentary: PRESENT: wounds - Left heel, left ischium Psychiatric: PRESENT: anxiety - With likely panic attacks Allergic/Immunologic: PRESENT: seasonal rhinorrhea Physical Exam Vital Signs: Temp Pulse Resp BP Pulse Ox 98.4 F 20 133/53 H 94 11/16/19 12:06 11/16/19 12:06 11/16/19 12:06 11/16/19 12:06 Intake & Output 11/15/19 11/16/19 11/17/19 06:59 06:59 06:59 Intake Total 2049 Balance 2049 Weight 105 kg General appearance: PRESENT: no acute distress, cooperative, morbidly obese, wel l-developed, well-nourished Head exam: PRESENT: atraumatic, normocephalic Eye exam: PRESENT: conjunctiva pink, EOMI, PERRLA. ABSENT: conjunctival inj ection, nystagmus, scleral icterus Ear exam: PRESENT: normal external ear exam. ABSENT: bleeding, drainage Mouth exam: PRESENT: dry mucosa, tongue midline Teeth exam: PRESENT: poor dentation Neck exam: PRESENT: full ROM. ABSENT: carotid bruit, JVD, lymphadenopathy Respiratory exam: PRESENT: decreased breath sounds - Especially left base, stridor - Mild expiratory stridor. Patient reports this has been present since an early age., symmetrical, unlabored. ABSENT: accessory muscle use, rhonchi, tachypnea, wheezes Cardiovascular exam: PRESENT: RRR, +S1, +S2, systolic murmur - 2/6 GI/Abdominal exam: PRESENT: soft, other - Protuberant abdomen. ABSENT: distended, guarding, mass, tenderness Rectal exam: PRESENT: deferred Gentrourinary exam: PRESENT: indwelling catheter Extremities exam: ABSENT: joint swelling, pedal edema Musculoskeletal exam: PRESENT: normal inspection. ABSENT: deformity Neurological exam: PRESENT: alert, awake, oriented to person, oriented to place, oriented to time, oriented to situation - Still somewhat sketchy on details from yesterday, CN II-XII grossly intact. ABSENT: altered Psychiatric exam: PRESENT: appropriate affect. ABSENT: agitated, anxious Focused psych exam: ABSENT: delusional, paranoid, restlessness Skin exam: PRESENT: dry, normal color, warm, other - Dressing on left heel. I did not examine the left ischium.. ABSENT: rash Results Laboratory Results: 11/16/19 09:40 11/16/19 09:40 11/16/19 11/16/19 11/16/19 09:40 09:40 09:40 WBC 14.8 H RBC 4.25 Hgb 12.9 Hct 37.3 MCV 88 MCH 30.4 MCHC 34.7 RDW 13.6 Plt Count 159 Seg Neutrophils % Not Reportable VBG pH VBG pCO2 VBG HCO3 VBG Base Excess Sodium 139.6 Potassium 3.6 Chloride 103 Carbon Dioxide 25 Anion Gap 12 BUN 38 H Creatinine 0.95 Est GFR ( Amer) > 60 Glucose 126 H Lactic Acid 1.9 Calcium 9.7 Total Bilirubin 1.2 AST 35 Alkaline Phosphatase 62 Total Protein 6.7 Albumin 3.8 Urine Color Urine Appearance Urine pH Ur Specific [place] Urine Protein Urine Glucose (UA) Urine Ketones Urine Blood Urine Nitrite Ur Leukocyte Esterase Urine WBC (Auto) Urine RBC (Auto) 11/16/19 11/16/19 11/16/19 10:25 10:25 12:32 WBC RBC Hgb Hct MCV MCH MCHC RDW Plt Count Seg Neutrophils % VBG pH 7.40 VBG pCO2 36.6 VBG HCO3 22.2 VBG Base Excess -2.1 Sodium Potassium Chloride Carbon Dioxide Anion Gap BUN Creatinine Est GFR ( Amer) Glucose Lactic Acid 1.0 Calcium Total Bilirubin AST Alkaline Phosphatase Total Protein Albumin Urine Color YELLOW Urine Appearance CLOUDY Urine pH 6.0 Ur Specific [place] 1.014 Urine Protein 30 H Urine Glucose (UA) NEGATIVE Urine Ketones NEGATIVE Urine Blood MODERATE H Urine Nitrite POSITIVE H Ur Leukocyte Esterase SMALL H Urine WBC (Auto) 125 Urine RBC (Auto) 2 11/16/19 09:40 Troponin I 0.059 Impressions: Chest X-Ray 11/16/19 09:37 IMPRESSION: NO ACUTE RADIOGRAPHIC FINDING IN THE CHEST. Assessment and Plan - Diagnosis (1) Sepsis due to urinary tract infection Is this a current diagnosis for this admission?: Yes Plan: 11/16/2019 Patient meets sepsis criteria. Several boluses of IV fluid with ongoing IV saline at this time. Antibiotic therapy initiated after cultures obtained. Will continue to monitor on telemetry and with recurrent vital signs. Of note, at the time of this encounter the patient was doing quite well, eating supper and conversing with myself and her daughter. (2) Hypotension Qualifiers: Hypotension type: other hypotension type Qualified Code(s): I95.89 - Other hypotension Is this a current diagnosis for this admission?: Yes Plan: 11/16/2019 Secondary to sepsis. She has not had a good appetite over the last several days either. We will hold antihypertensives until blood pressure improves. Continue IV fluids. (3) Acute metabolic encephalopathy Is this a current diagnosis for this admission?: Yes Plan: 11/16/2019 Secondary to sepsis with urinary tract infection (4) UTI (urinary tract infection) Qualifiers: Urinary tract infection type: acute cystitis Hematuria presence: without hematuria Qualified Code(s): N30.00 - Acute cystitis without hematuria Is this a current diagnosis for this admission?: Yes Plan: 11/16/2019 The patient has had several urinary tract infections recently. It is likely a combination of rectal prolapse and suspicion of bladder prolapse with urinary retention. At 84 she is not a very good candidate for major surgery. A urine culture has been obtained. We will utilize IV ceftriaxone and wait for final identification and sensitivities. (5) Rectal prolapse Is this a current diagnosis for this admission?: Yes Plan: 11/16/2019 The patient has a history of constipation. She has tried multiple [id number] products. The prolapse was reducible. We will try and improve her bowel regimen to minimize the prolapse events. (6) Non-healing wound of left heel Is this a current diagnosis for this admission?: Yes Plan: 11/16/2019 This wound was present on admission. The patient has been seen at the wound care center. I printed the last wound care center note. This is felt to be a [place] ulcer down to stage II. Currently utilizing Acticoat dressing covered with dry dressing and secured with tape. Change every 48 hours. (7) Decubitus ulcer of left perineal ischial region, stage 3 Is this a current diagnosis for this admission?: Yes Plan: 11/16/2019 As noted above the patient has been seen at the wound care center. This is a pressure ulcer. It is almost healed completely. We do not have DuoDERM dressings. The patient's daughter has graciously agreed to see if there are extra DuoDERM dressings at home and bring them in. In the meantime we will apply barrier cream liberally and reposition the patient. (8) Leukocytosis Qualifiers: Leukocytosis type: bandemia Qualified Code(s): D72.825 - Bandemia Is this a current diagnosis for this admission?: Yes Plan: 11/16/2019 The patient had an elevated white blood cell count with 2% bands in addition to a high percentage of neutrophils. We will monitor with serial lab tests. I expect the white blood cell count to improve with ongoing antibiotic therapy. (9) Chronic osteoarthritis Is this a current diagnosis for this admission?: Yes Plan: 11/16/2019 The patient sees a folder stitcher operator. She has bad arthritis in both shoulders. She has a history of osteomyelitis in her lumbar spine with high likelihood of degenerative changes. She is on Skelaxin and Celebrex. She also has narcotic analgesia for use at home. While she is here and may try and streamline (10) Degenerative disc disease Qualifiers: Spinal region: lumbar Qualified Code(s): M51.36 - Other intervertebral disc degeneration, lumbar region Is this a current diagnosis for this admission?: Yes Plan: 11/16/2019 Secondary to her morbid obesity, generalized osteoarthritis with age as well as a history of lumbar osteomyelitis. We will continue current regimen for pain management. (11) Anxiety Is this a current diagnosis for this admission?: Yes Plan: 11/16/2019 I was contacted by the nurse on the fourth floor prior to completing her admission. The patient was tachypneic with respiratory rate greater than 30. She was exhibiting increased work of breathing. She had received fluids for her sepsis and heart failure was a consideration. She did respond to a dose of IV morphine but she also admits to high anxiety and possible panic attacks. I will have Lorazepam available if needed and also discussed with her the use of a long-term medication such as sertraline. (12) Morbid obesity Is this a current diagnosis for this admission?: Yes Plan: 11/16/2019 Clearly a significant risk factor for the patient. Because of her arthritic issues and her advanced age she is not a candidate for a rigorous exercise program. Aggressive weight management through diet would be helpful. (13) Hypertension Qualifiers: Hypertension type: essential hypertension Qualified Code(s): I10 - Essential (primary) hypertension Is this a current diagnosis for this admission?: Yes Plan: 11/16/2019 Because of her sepsis with hypotension her antihypertensives will be on hold temporarily. Her blood pressure is improving I expect we may resume these medications tomorrow. (14) Hyperglycemia due to type 2 diabetes mellitus Qualifiers: Diabetes mellitus half-way insulin use: without half-way use Qualified Code(s): E11.65 - Type 2 diabetes mellitus with hyperglycemia Is this a current diagnosis for this admission?: Yes Plan: 11/16/2019 The patient is on oral medications alone. I have asked for fingersticks twice daily with sliding scale coverage. Her appetite appears to be good and so we will likely continue the oral medications as prescribed. (15) Hypothyroidism Qualifiers: Hypothyroidism type: unspecified Qualified Code(s): E03.9 - Hypothyroidism, unspecified Is this a current diagnosis for this admission?: Yes Plan: 11/16/2019 Continue 100 mcg levothyroxine daily (16) Diabetic neuropathy associated with type 2 diabetes mellitus Qualifiers: Diabetes mellitus complication detail: diabetic polyneuropathy Qualified Code(s): E11.42 - Type 2 diabetes mellitus with diabetic polyneuropathy Is this a current diagnosis for this admission?: Yes Plan: 11/16/2019 The left heel ulcer is likely a product of pressure and neuropathy. The patient reports that Lyrica is effective for neuropathic pain. She is also on multiple other agents with analgesic properties. We will continue her Lyrica at this ti ma. (17) Constipation due to opioid therapy Is this a current diagnosis for this admission?: Yes Plan: 11/16/2019 The patient has been on long-term opiate therapy. She reports longstanding constipation. I explained that this is likely a contributing factor to her rectal prolapse. We will institute a trial of lubiprostone for opiate-induced constipation. - Time Time Spent with patient: 35 or more minutes Medications reviewed and adjusted accordingly: Yes Anticipated discharge: Home - Inpatient Certification Based on my medical assessment, after consideration of the patient's comorbidities, presenting symptoms, or acuity I expect that the services needed warrant INPATIENT care.: Yes I certify that my determination is in accordance with my understanding of Medicare's requirements for reasonable and necessary INPATIENT services [42 CFR 412.3e].: Yes Medical Necessity: Need For IV Fluids, Need For Continuous Telemetry Monitoring, Need for Pain Control, Need for IV Antibiotics
[2019-11-16] MEDS ORDERED: MAGNESIUM HYDROXIDE SUSP 30 ML UDCUP PO PRN (13:45)
[2019-11-16] MEDS ORDERED: GLUCAGON,HUMAN RECOMB 1 MG INJ IM PRN (13:53)
[2019-11-16] MEDS ORDERED: DEXTROSE 40% GEL 15 GM TUBE PO PRN ×2 (13:53)
[2019-11-16] MEDS ORDERED: DEXTROSE 50%-WATER 25 GM/50 ML DISP.SYRIN IV PRN ×2 (13:53)
[2019-11-16] MEDS ORDERED: NORMAL SALINE 1000 ML 1,000 ML IV PRN (13:56)
[2019-11-16] MEDS ORDERED: MORPHINE SULFATE 10 MG/ML INJ IV PRN (15:46)
[2019-11-16] MEDS ORDERED: MORPHINE SULFATE 10 MG/ML INJ ONE (15:47)
[2019-11-16] MEDS ORDERED: MORPHINE SULFATE 10 MG/ML INJ IV ONE (16:30)
[2019-11-16] MEDS: METFORMIN HCL 500 MG TABLET PO SCH (17:18)
[2019-11-16] MEDS ORDERED: PHARMACY COMMUNICATION ORDER MC NR (17:45)
[2019-11-16] MEDS: INSULIN REG, HUMAN 100 UNIT/ML 3 ML VIAL (PYX) SUBCUT SCH ×2 (18:17→22:01)
--- NOTE | 2019-11-16 18:26 | EKG REPORT ---
SEVERITY:- ABNORMAL ECG - SINUS RHYTHM LEFT ANTERIOR FASCICULAR BLOCK : Confirmed by: Christina Mosqueda MD 16-Nov-2019 18:26:18
[2019-11-16] MEDS ORDERED: OXYCODONE-ACETAMINOPHEN 5-325 MG TABLET PO PRN (18:34)
[2019-11-16] MEDS ORDERED: LORAZEPAM 0.5 MG TABLET PO PRN (18:40)
[2019-11-16] MEDS: CELECOXIB 200 MG CAPSULE PO SCH (19:31)
[2019-11-16] MEDS: METAXALONE 800 MG TABLET PO SCH (19:31)
[2019-11-16] MEDS: LUBIPROSTONE 24 MCG CAPSULE PO SCH (22:01)
[2019-11-16] MEDS: PREGABALIN 100 MG CAPSULE PO SCH (22:01)
[2019-11-16] MEDS: ATORVASTATIN CALCIUM 10 MG TABLET PO SCH (22:01)
[2019-11-16] MEDS: AMITRIPTYLINE HCL 25 MG TABLET PO SCH (22:01)
[2019-11-17] MEDS: LEVOTHYROXINE SODIUM 0.1 MG TABLET PO SCH (05:29)
[2019-11-17] MEDS: ACETAMINOPHEN 325 MG TABLET PO PRN ×2 (05:29→11:59)
[2019-11-17] MEDS: PREGABALIN 100 MG CAPSULE PO SCH ×3 (05:29→21:10)
[2019-11-17] MEDS: PANTOPRAZOLE SODIUM 20 MG TABLET.DR PO SCH (05:29)
[2019-11-17] MEDS: ENOXAPARIN SODIUM INJ 120 MG/0.8 ML DISP.SYRIN SUBCUT SCH ×2 (05:30→17:14)
[2019-11-17 05:56] LABS: TROPONIN I 0.197 ng/mL
[2019-11-17 05:57] LABS: ABSOLUTE LYMPHOCYTES (AUTO) 0.6 10^3/uL (0.5-4.7); ABSOLUTE MONOCYTES (AUTO) 1.1 10^3/uL (0.1-1.4); ABSOLUTE NEUT (AUTO) 9.7 10^3/uL (1.7-8.2); BASOPHILS % (AUTO) 0.1 % (0-2); HEMATOCRIT 36.1 % (36.0-47.0); HEMOGLOBIN 12.2 g/dL (12.0-15.5); LYMPHOCYTES % (AUTO) 5.3 % (13-45); MEAN CORPUSCULAR HEMOGLOBIN 29.8 pg (27.0-33.4); MEAN CORPUSCULAR HGB CONC 33.8 g/dL (32.0-36.0); MEAN CORPUSCULAR VOLUME 88 fl (80-97); MONOCYTES % (AUTO) 9.6 % (3-13); PLATELET COUNT 123 10^3/uL (150-450); RED BLOOD COUNT 4.09 10^6/uL (3.72-5.28); RED CELL DISTRIBUTION WIDTH 14.1 % (11.5-14.0); TOTAL CELLS COUNTED % (AUTO) 100 %; WHITE BLOOD COUNT 11.4 10^3/uL (4.0-10.5)
[2019-11-17] MEDS ORDERED: LEVOTHYROXINE SODIUM 0.05 MG TABLET PO SCH (08:00)
[2019-11-17] MEDS: INSULIN REG, HUMAN 100 UNIT/ML 3 ML VIAL (PYX) SUBCUT SCH ×4 (09:35→21:09)
[2019-11-17] MEDS: METFORMIN HCL 500 MG TABLET PO SCH ×2 (09:39→16:06)
[2019-11-17] MEDS: METAXALONE 800 MG TABLET PO SCH ×3 (09:40→17:25)
[2019-11-17] MEDS: CELECOXIB 200 MG CAPSULE PO SCH ×2 (09:40→17:25)
[2019-11-17] MEDS: LORATADINE 10 MG TABLET PO SCH (09:40)
[2019-11-17] MEDS: LUBIPROSTONE 24 MCG CAPSULE PO SCH ×2 (09:40→21:11)
[2019-11-17] MEDS: ASPIRIN 81 MG TABLET, ENT COATED PO SCH (09:40)
[2019-11-17] MEDS: SITAGLIPTIN PHOSPHATE 50 MG TABLET PO SCH (09:40)
[2019-11-17] MEDS: FENOFIBRATE NANOCRYSTALLIZED 145 MG TABLET PO SCH (09:40)
[2019-11-17] MEDS: CEFTRIAXONE 1 GM/D5W RTU 1 GM/50 ML RTUPB IV SCH (09:41)
[2019-11-17] MEDS: POTASSIUM CHLORIDE 10 MEQ TABLET.ER PO SCH (09:41)
[2019-11-17] MEDS: PREDNISOLONE ACETATE 1% OPH SUSP 5 ML OS SCH ×2 (09:51→17:26)
[2019-11-17] MEDS ORDERED: (PENDING PHARMACY ID) (Brimonidine Tartrate [Alphagan P] 1 DROP) OS SCH (10:00)
[2019-11-17] MEDS ORDERED: POTASSIUM CHLORIDE 20 MEQ PACKET PO SCH (10:00)
[2019-11-17] MEDS ORDERED: ASPIRIN 81 MG TABLET, CHEWABLE PO SCH (10:00)
[2019-11-17] MEDS ORDERED: (PENDING PHARMACY ID) (Metformin Hcl [Metformin Hcl Er] 500 MG) PO SCH (10:00)
[2019-11-17] MEDS ORDERED: BETAXOLOL HCL OS SCH (10:00)
--- NOTE | 2019-11-17 11:07 | PDOC PROGRESS REPORT ---
Subjective Progress Note for:: 11/17/19 Subjective:: The patient is resting comfortably. Her oxygen saturation is 91% on room air and so we will trial room air. She is having good urine output with her Harding catheter and we need to consider removing her Harding in the next day or so. Blood cultures are positive for gram-negative bacilli and I expect the urine culture will be positive as well based on the urinalysis. Her white blood cell count has improved as well. Reason For Visit: UROSEPSIS Physical Exam Vital Signs: Temp Pulse Resp BP Pulse Ox 98.2 F 87 20 100/62 95 11/17/19 07:20 11/17/19 07:20 11/17/19 07:20 11/17/19 08:12 11/17/19 07:20 Intake & Output 11/16/19 11/17/19 11/18/19 06:59 06:59 06:59 Intake Total 2632 Output Total 2460 Balance 172 Weight 107.6 kg General appearance: PRESENT: no acute distress, morbidly obese, well-developed Head exam: PRESENT: atraumatic, normocephalic Ear exam: PRESENT: normal external ear exam. ABSENT: bleeding, drainage Mouth exam: PRESENT: moist, tongue midline Respiratory exam: PRESENT: clear to auscultation erika, stridor - The patient has a chronic stridor like expiration likely based on her obesity and positioning of her head., symmetrical, unlabored. ABSENT: rales, rhonchi, tachypnea, wheezes Cardiovascular exam: PRESENT: RRR, +S1, +S2 GI/Abdominal exam: PRESENT: normal bowel sounds, soft, other - Protuberant abdomen. ABSENT: distended, guarding, tenderness Extremities exam: PRESENT: pedal edema Musculoskeletal exam: PRESENT: ambulatory, other - Legs currently elevated Neurological exam: PRESENT: alert, awake, oriented to person, oriented to place, oriented to situation, CN II-XII grossly intact. ABSENT: altered, oriented to time - Has been slightly confused about time of day Psychiatric exam: ABSENT: agitated, anxious Focused psych exam: ABSENT: delusional, restlessness Skin exam: PRESENT: dry, warm, other - Dressing on the left heel Results Laboratory Results: 11/17/19 04:30 11/16/19 09:40 11/16/19 11/16/19 11/16/19 10:25 12:32 15:23 WBC RBC Hgb Hct MCV MCH MCHC RDW Plt Count Seg Neutrophils % Lactic Acid 1.0 2.1 Urine Color YELLOW Urine Appearance CLOUDY Urine pH 6.0 Ur Specific Orange 1.014 Urine Protein 30 H Urine Glucose (UA) NEGATIVE Urine Ketones NEGATIVE Urine Blood MODERATE H Urine Nitrite POSITIVE H Ur Leukocyte Esterase SMALL H Urine WBC (Auto) 125 Urine RBC (Auto) 2 11/17/19 04:30 WBC 11.4 H RBC 4.09 Hgb 12.2 Hct 36.1 MCV 88 MCH 29.8 MCHC 33.8 RDW 14.1 H Plt Count 123 L Seg Neutrophils % 85.0 H Lactic Acid Urine Color Urine Appearance Urine pH Ur Specific Orange Urine Protein Urine Glucose (UA) Urine Ketones Urine Blood Urine Nitrite Ur Leukocyte Esterase Urine WBC (Auto) Urine RBC (Auto) 11/16/19 11/16/19 11/16/19 09:40 09:40 18:35 Creatine Kinase CK-MB (CK-2) Troponin I 0.059 0.224 NT-Pro-B Natriuret Pep 1140 H 11/16/19 11/17/19 11/17/19 22:16 04:30 04:30 Creatine Kinase 145 H CK-MB (CK-2) 2.00 Troponin I 0.300 0.197 NT-Pro-B Natriuret Pep Impressions: Chest X-Ray 11/16/19 09:37 IMPRESSION: NO ACUTE RADIOGRAPHIC FINDING IN THE CHEST. Assessment and Plan - Diagnosis (1) Sepsis due to urinary tract infection Is this a current diagnosis for this admission?: Yes Plan: 11/16/2019 Patient meets sepsis criteria. Several boluses of IV fluid with ongoing IV saline at this time. Antibiotic therapy initiated after cultures obtained. Will continue to monitor on telemetry and with recurrent vital signs. Of note, at the time of this encounter the patient was doing quite well, eating supper and conversing with myself and her daughter. 11/17/2019 Sepsis resolved with antibiotics and fluid (2) Hypotension Qualifiers: Hypotension type: other hypotension type Qualified Code(s): I95.89 - Other hypotension Is this a current diagnosis for this admission?: Yes Plan: 11/16/2019 Secondary to sepsis. She has not had a good appetite over the last several days either. We will hold antihypertensives until blood pressure improves. Continue IV fluids. 11/17/2019 Blood pressure was slightly elevated yesterday but is low again today. I have held her antihypertensive medications. Await echocardiogram. (3) Acute metabolic encephalopathy Is this a current diagnosis for this admission?: Yes Plan: 11/16/2019 Secondary to sepsis with urinary tract infection 11/17/2019 Patient still exhibits slight forgetfulness. She admits to some confusion about the time of day. She is improved from the time of admission. (4) UTI (urinary tract infection) Qualifiers: Urinary tract infection type: acute cystitis Hematuria presence: without hematuria Qualified Code(s): N30.00 - Acute cystitis without hematuria Is this a current diagnosis for this admission?: Yes Plan: 11/16/2019 The patient has had several urinary tract infections recently. It is likely a combination of rectal prolapse and suspicion of bladder prolapse with urinary retention. At 84 she is not a very good candidate for major surgery. A urine culture has been obtained. We will utilize IV ceftriaxone and wait for final identification and sensitivities. 11/17/2019 Gram-negative bacilli isolated in the blood. Anticipate gram-negative bacilli in the urine as well. She is already on antibiotic therapy. (5) Rectal prolapse Is this a current diagnosis for this admission?: Yes Plan: 11/16/2019 The patient has a history of constipation. She has tried multiple [id number] products. The prolapse was reducible. We will try and improve her bowel regimen to minimize the prolapse events. 11/17/2019 Patient is going to try and get a second opinion regarding possible corrective surgery after this infection clears. (6) Non-healing wound of left heel Is this a current diagnosis for this admission?: Yes Plan: 11/16/2019 This wound was present on admission. The patient has been seen at the wound care center. I printed the last wound care center note. This is felt to be a Pao ulcer down to stage II. Currently utilizing Acticoat dressing covered with dry dressing and secured with tape. Change every 48 hours. 11/17/2019 Continue current dressing changes and heel offloading (7) Decubitus ulcer of left perineal ischial region, stage 3 Is this a current diagnosis for this admission?: Yes Plan: 11/16/2019 As noted above the patient has been seen at the wound care center. This is a pressure ulcer. It is almost healed completely. We do not have DuoDERM dressings. The patient's daughter has graciously agreed to see if there are extra DuoDERM dressings at home and bring them in. In the meantime we will apply barrier cream liberally and reposition the patient. 11/17/2019 The patient's daughter is going to bring in some DuoDERM dressings if she has any at home. Continue barrier cream and repositioning to offload the area. (8) Leukocytosis Qualifiers: Leukocytosis type: bandemia Qualified Code(s): D72.825 - Bandemia Is this a current diagnosis for this admission?: Yes Plan: 11/16/2019 The patient had an elevated white blood cell count with 2% bands in addition to a high percentage of neutrophils. We will monitor with serial lab tests. I expect the white blood cell count to improve with ongoing antibiotic therapy. 11/17/2019 Improved on antibiotic therapy. Not quite normal yet. Recheck tomorrow. (9) Chronic osteoarthritis Is this a current diagnosis for this admission?: Yes Plan: 11/16/2019 The patient sees a registered nurse obstetrics. She has bad arthritis in both shoulders. She has a history of osteomyelitis in her lumbar spine with high likelihood of degenerative changes. She is on Skelaxin and Celebrex. She also has narcotic analgesia for use at home. While she is here and may try and streamline 11/17/2019 Continue current anti-inflammatory and analgesic regimen (10) Degenerative disc disease Qualifiers: Spinal region: lumbar Qualified Code(s): M51.36 - Other intervertebral disc degeneration, lumbar region Is this a current diagnosis for this admission?: Yes Plan: 11/16/2019 Secondary to her morbid obesity, generalized osteoarthritis with age as well as a history of lumbar osteomyelitis. We will continue current regimen for pain management. 11/17/2019 Pain management as above (11) Anxiety Is this a current diagnosis for this admission?: Yes Plan: 11/16/2019 I was contacted by the nurse on the fourth floor prior to completing her admission. The patient was tachypneic with respiratory rate greater than 30. She was exhibiting increased work of breathing. She had received fluids for her sepsis and heart failure was a consideration. She did respond to a dose of IV morphine but she also admits to high anxiety and possible panic attacks. I will have Lorazepam available if needed and also discussed with her the use of a long-term medication such as sertraline. 11/17/2019 Seems more relaxed today. Continue to monitor. (12) Morbid obesity Is this a current diagnosis for this admission?: Yes Plan: 11/16/2019 Clearly a significant risk factor for the patient. Because of her arthritic issues and her advanced age she is not a candidate for a rigorous exercise program. Aggressive weight management through diet would be helpful. (13) Hypertension Qualifiers: Hypertension type: essential hypertension Qualified Code(s): I10 - Essential (primary) hypertension Is this a current diagnosis for this admission?: Yes Plan: 11/16/2019 Because of her sepsis with hypotension her antihypertensives will be on hold temporarily. Her blood pressure is improving I expect we may resume these medications tomorrow. 11/17/2019 Blood pressure was actually slightly high yesterday. Currently not on any antihypertensives. Blood pressure was low this morning. We will continue to monitor. Echocardiogram is pending. (14) Hyperglycemia due to type 2 diabetes mellitus Qualifiers: Diabetes mellitus joint terminal attack controller insulin use: without halfway use Qualified Code(s): E11.65 - Type 2 diabetes mellitus with hyperglycemia Is this a current diagnosis for this admission?: Yes Plan: 11/16/2019 The patient is on oral medications alone. I have asked for fingersticks twice daily with sliding scale coverage. Her appetite appears to be good and so we will likely continue the oral medications as prescribed. 11/17/2019 Current regimen exhibits good control. Continue fingersticks and sliding scale coverage as well as oral medications. 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 The patient reports that Lyrica is effective for neuropathic pain. She is also on multiple other agents with analgesic properties. We will continue her Lyrica at this time. 11/17/2019 Currently stable. Continue current medication regimen (17) Constipation due to opioid therapy Is this a current diagnosis for this admission?: Yes Plan: 11/16/2019 The patient has been on long-term opiate therapy. She reports longstanding con stipation. I explained that this is likely a contributing factor to her rectal prolapse. We will institute a trial of lubiprostone for opiate-induced constipation. 11/17/2019 Currently on a trial of lubiprostone. We will continue to monitor. - Time Time Spent with patient: 15-24 minutes Medications reviewed and adjusted accordingly: Yes Anticipated discharge: Home
[2019-11-17 12:28] LABS: ANION GAP 11 (5-19); BLOOD UREA NITROGEN 25 mg/dL (7-20); CALCIUM 8.9 mg/dL (8.4-10.2); CARBON DIOXIDE 23 mmol/L (22-30); CHLORIDE 107 mmol/L (98-107); GLUCOSE 103 mg/dL (75-110); POTASSIUM 3.4 mmol/L (3.6-5.0)
[2019-11-17] MEDS ORDERED: IPRATROPIUM/ALBUTEROL 0.5-2.5 MG/3 ML AMPUL NEB PRN (12:45)
[2019-11-17] MEDS ORDERED: NORMAL SALINE 500 ML IV ONE (13:00)
--- NOTE | 2019-11-17 13:48 | CDI QUERY ---
CDI Query CDI Review: Dear Provider: To better reflect your patients severity of illness, morbidity, and resource utilization Please specify and document in the Progress Notes and Discharge Summary if you are monitoring / treating / evaluating any of the following conditions: The terms probable, suspected, likely, possible or still to be ruled out may be used if you are unable to determine the exact nature of a condition. Query Clinical indicators Please include the patients BMI in your notes to support the diagnosis of Morbid Obesity (12) Morbid obesity Is this a current diagnosis for this admission?: Yes Plan: 11/16/2019 Clearly a significant risk factor for the patient. Because of her arthritic issues and her advanced age she is not a candidate for a rigorous exercise program. Aggressive weight management through diet would be helpful. Ht 5 ft 3 in Wt 107.6 kg / 236.72 lbs BMI 42 kg/m2 The terms probable, suspected, likely, possible or still to be ruled out may be used if you are unable to determine the exact nature of a condition. Thank you for your consideration, Clinical Documentation Physician Advisors SHANNON Celis RN, BSN RN [email or web address] Office [phone] Office [phone]
--- NOTE | 2019-11-17 13:56 | EKG REPORT ---
SEVERITY:- ABNORMAL ECG - SINUS RHYTHM PROBABLE INFERIOR INFARCT, AGE INDETERMINATE : Confirmed by: Christina Mosqueda MD 17-Nov-2019 13:54:38
--- NOTE | 2019-11-17 14:30 | XCELERA REPORT ---
[address] [address] Transthoracic Echocardiogram Report Name: MARY LEE Age: 84 yrs Gender: Female : 1935 Patient Status: Inpatient Patient Location: [address] [place], [place] [id number] Study Date: 11/16/2019 05:42 PM Height: 63 in Weight: 229 lb BSA: 2.0 m2 Procedure: A two-dimensional transthoracic echocardiogram with color flow and Doppler was performed. The study was technically limited with all images being suboptimal in quality. Reason For Study: Cardiomegaly and pleural effusion with elevated TI History: Cardiomegaly and pleural effusion with elevated TI. Ordering Physician: ARMANDO INMAN Performed By: Patti Lubin Interpretation Summary The left ventricle is normal in size. There is normal left ventricular wall thickness. LV EF is > than 65% Left ventricular systolic function is normal. Doppler measurements suggest impaired left ventricular relaxation, which is associated with grade I/IV or mild diastolic dysfunction The left ventricular wall motion is normal. There is no thrombus. NO ASD , VSD , or PFO seen. The right ventricle is grossly normal size. The right ventricle is not well visualized secondary to technical limitations The right atrium is normal. The left atrial size is normal. There is no evidence of mitral valve prolapse. There is no vegetation seen on the mitral valve. There is no mitral valve stenosis. There is a trace amount of mitral regurgitation There is no aortic valvular vegetation. There is mild aortic stenosis There is a peak gradient of 25 mm of Hg. No aortic regurgitation is present. There is a mild amount of tricuspid regurgitation There is mild to moderate pulmonary hypertension by echo RVSP is 45 to 50 mm of Hg , with RA mean of 15 to 20. There is no pulmonic valvular stenosis. There is no pulmonic valvular regurgitation. The aortic root is normal size. The inferior vena cava appeared dilated and decreased < 50% with respiration (RAP 15-20 mmHg) There is no pericardial effusion. MMode/2D Measurements & Calculations RVDd: 3.9 cm LVIDd: 4.8 cm FS: 38.4 % Ao root diam: 2.6 cm IVSd: 1.3 cm LVIDs: 3.0 cm EDV(Teich): 109.7 ml Ao root area: 5.4 cm2 LVPWd: 1.1 cm ESV(Teich): 34.5 ml LA dimension: 3.7 cm EF(Teich): 68.6 % LVOT diam: 1.9 cm LVOT area: 2.8 cm2 Doppler Measurements & Calculations MV E max sabrina: MV P1/2t max sabrina: Ao V2 max: LV V1 max P.1 cm/sec 113.8 cm/sec 248.5 cm/sec 8.6 mmHg MV A max sabrina: MV P1/2t: 63.3 msec Ao max PG: LV V1 mean P.4 cm/sec MVA(P1/2t): 3.5 cm2 24.7 mmHg 4.1 mmHg MV E/A: 0.90 MV dec slope: Ao V2 mean: LV V1 max: 164.3 cm/sec 146.5 cm/sec 526.9 cm/sec2 Ao mean PG: LV V1 mean: MV dec time: 0.20 sec 12.4 mmHg 91.5 cm/sec Ao V2 VTI: 43.4 cmLV V1 VTI: 24.8 cm RODRIGO(I,D): 1.6 cm2 RODRIGO(V,D): 1.7 cm2 SV(LVOT): 70.7 ml PA V2 max: TR max sabrina: MV P1/2t-pr_phl: 110.1 cm/sec 275.5 cm/sec 63.3 msec PA max P.8 mmHg TR max P.4 mmHg Left Ventricle The left ventricle is normal in size. There is normal left ventricular wall thickness. LV EF is > than 65%. Left ventricular systolic function is normal. Doppler measurements suggest impaired left ventricular relaxation, which is associated with grade I/IV or mild diastolic dysfunction. The left ventricular wall motion is normal. There is no thrombus. NO ASD , VSD , or PFO seen. Right Ventricle The right ventricle is grossly normal size. The right ventricle is not well visualized secondary to technical limitations. Atria The right atrium is normal. The left atrial size is normal. Mitral Valve There is no evidence of mitral valve prolapse. There is no vegetation seen on the mitral valve. There is no mitral valve stenosis. There is a trace amount of mitral regurgitation. Aortic Valve There is no aortic valvular vegetation. There is mild aortic stenosis. There is a peak gradient of 25 mm of Hg. No aortic regurgitation is present. Tricuspid Valve There is no tricuspid stenosis. There is a mild amount of tricuspid regurgitation. There is mild to moderate pulmonary hypertension by echo. RVSP is 45 to 50 mm of Hg , with RA mean of 15 to 20. Pulmonic Valve There is no pulmonic valvular stenosis. There is no pulmonic valvular regurgitation. Great Vessels The aortic root is normal size. The inferior vena cava appeared dilated and decreased < 50% with respiration (RAP 15-20 mmHg). Effusions There is no pericardial effusion. : ARMANDO INMAN Lakshmi
[2019-11-17] MEDS: IPRATROPIUM/ALBUTEROL 0.5-2.5 MG/3 ML AMPUL NEB SCH ×2 (14:40→19:18)
--- NOTE | 2019-11-17 15:02 | PDOC CONSULTATION ---
Consultation-Blank Consultation: CARDIOLOGY CONSULTATION by Dr. Christina Mosqueda on 11/17/2019. Patient seen at 4:15 PM. 60-minute spent with patient more than 50% time spent in direct patient care. REASON FOR CONSULTATION: Patient with elevated troponin high levels. Assess for possible non-ST elevation MN. CONSULT REQUESTING PHYSICIAN: [facility] 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 The patient denies any chest pain or discomfort. There is vague symptoms of shortness of breath. There is no PND orthopnea. She has no history of coronary artery disease. There is no history of congestive heart failure. The patient is EKG shows sinus rhythm with left anterior fascicular block with no acute changes. The patient's troponin I is elevated marginally at 0.3 and is now trending down. Hence this is definitely not a non-ST relation MN most likely secondary to the patient's hypotension and sepsis from most likely urinary tract infection, and hence is a type II myocardial infarction secondary to supply demand mismatch and not an ST elevation MN. The patient's echocardiogram [see report] shows normal left ventricular wall motion and ejection fraction. There is mild to moderate pulmonary hypertension. Past Medical History Cardiac Medical History: Reports: Hyperlipidema, Hypertension Denies: Atrial Fibrillation, Congestive Heart Failure, Coronary Artery Disease, Myocardial Infarction, Peripheral Vascular Disease, Pulmonary Embolism, Heart Murmur Pulmonary Medical History: Reports: Pneumonia - no hospitalization, Sleep Apnea - "mild", prn CPAP utilization Denies: Asthma, Bronchitis, Chronic Obstructive Pulmonary Disease (COPD), Respiratory Failure, Tuberculosis EENT Medical History: Reports: Eyes - Zoster Neurological Medical History: Reports: Other - Diabetic neuropathy Denies: Ischemic CVA, Seizures Endocrine Medical History: Reports: Diabetes Mellitus Type 2, Hypothyroidism - meds x 30 years Denies: Hyperthyroidism Renal/ Medical History: Reports: Other - Recurrent urinary tract infections. Likely prolapsed bladder. Denies: End Stage Renal Disease Malignancy Medical History: Denies: Breast Cancer, Colorectal Cancer, Lung Cancer GI Medical History: Reports: Other - Rectal prolapse Denies: Crohn's Disease, Gastroesophageal Reflux Disease, Hiatal Hernia Musculoskeltal Medical History: Reports: Arthritis - lumbar spine Denies: Fibromyalgia Skin Medical History: Reports: None Psychiatric Medical History: Reports: Depression - Hx of 1964 & 1972 Denies: Bipolar Disorder, Post Traumatic Stress Disorder Hematology: Denies: Anemia, Heparin Induced Thrombocytopenia Infectious Medical History: Reports: Other Infectious History Note: Osteomyelitis lumbar spine, recurrent urinary tract infections Past Surgical History Past Surgical History: Reports: Cholecystectomy - open 1982, Orthopedic Surgery, Tonsillectomy, Tubal Ligation Denies: Amputation, Appendectomy, Section, Colostomy, Coronary Artery Bypass Graft, Gastric Bypass Surgery, Herniorrhaphy, Hysterectomy, Mastectomy, Pacemaker Social History Information Source: Patient, Relative - The patient's daughter, POA - Power of Pantograph Machine Set Up Operator - The healthcare POA is the patient's daughter Lives with: Alone, Other - Home health aide visits the patient on Tuesday, Tuesday and Tuesday Smoking Status: Former Smoker - quit in 2008 Electronic Cigarette use?: No Frequency of Alcohol Use: None Hx Recreational Drug Use: No Hx Prescription Drug Abuse: No - Advance Directive Resuscitation Status: Do Not Resuscitate Surrogate healthcare decision maker:: Confirmed by the patient's daughter who is the healthcare POA. I encouraged her to bring a copy of the document to the hospital. Family History Family History: Reviewed & Not Pertinent, CAD, COPD, Malignancy Parental Family History Reviewed: Yes Children Family History Reviewed: Yes Sibling(s) Family History Reviewed.: Yes Medication/Allergy Home Medications: Celecoxib [Celebrex 200 mg Capsule] 200 mg PO Q12 03/27/14 Levothyroxine Sodium [Synthroid] 100 mcg PO Q6AM 03/27/14 Metaxalone [Skelaxin 800 mg Tablet] 800 mg PO Q8 03/27/14 Cholecalciferol (Vitamin D3) [Vitamin D] 50,000 unit PO .QWEEKLY 06/12/18 Fenofibrate Nanocrystallized [Tricor 145 mg Tablet] 145 mg PO QHS 06/12/18 Amitriptyline HCl [Elavil 25 mg Tablet] 50 mg PO QHS 11/16/19 Aspirin [Ecotrin 81 mg EC Tablet] 81 mg PO DAILY 11/16/19 Betaxolol HCl [Betoptic S] 11/16/19 Brimonidine Tartrate [Alphagan P] drop 11/16/19 Famciclovir 500 mg PO DAILY 11/16/19 Loratadine [Claritin] 10 mg PO DAILY 11/16/19 Metformin HCl [Metformin HCl ER] 1,000 mg PO DAILY 11/16/19 Oxycodone HCl/Acetaminophen [Oxycodon-Acetaminophen 7.5-325] 1 each PO Q8HP PRN 11/16/19 Potassium Chloride [Klor-Con 10 Meq Tablet ER] 10 meq PO DAILY 11/16/19 Pravastatin Sodium 10 mg PO QHS 11/16/19 Prednisolone Acetate [Inflamase 1% Oph Susp 5 ml] drop 11/16/19 Pregabalin 100 mg PO Q8 11/16/19 Sitagliptin Phosphate [Januvia 50 mg Tablet] 100 mg PO DAILY 11/16/19 Telmisartan/Hydrochlorothiazid [Telmisartan-Hctz 80-25 mg Tab] 1 each PO DAILY 11/16/19 Allergies/Adverse Reactions: ciprofloxacin [From Cipro] Allergy (Intermediate, Verified 06/13/18 15:33) rash ciprofloxacin HCl [From Cipro] Allergy (Intermediate, Verified 06/13/18 15:33) rash vancomycin [Vancomycin] Allergy (Intermediate, Verified 06/13/18 15:33):rash. Current Medications Generic Name Dose Route Start Last Admin Trade Name Freq PRN Reason Stop Dose Admin Acetaminophen 650 mg 11/16/19 13:45 11/17/19 11:59 Tylenol 325 Mg Tablet PO 12/16/19 13:44 650 mg Q4HP PRN Administration temperture or pain Albuterol/Ipratropium 3 ml 11/17/19 14:00 11/17/19 19:18 Duoneb 3 Ml Ampul NEB 12/17/19 13:59 3 ml RTQ6 BEAU Administration Albuterol/Ipratropium 3 ml 11/17/19 12:45 Duoneb 3 Ml Ampul NEB 12/17/19 12:44 RTQ3HP PRN SHORTNESS OF BREATH Amitriptyline HCl 25 mg 11/16/19 22:00 11/17/19 21:11 Elavil 25 Mg Tablet PO 12/16/19 21:59 25 mg QHS BEAU Administration Aspirin 81 mg 11/17/19 10:00 11/17/19 09:40 Ecotrin 81 Mg Ec Tablet PO 12/17/19 09:59 81 mg DAILY BEAU Administration Atorvastatin Calcium 10 mg 11/16/19 22:00 11/17/19 21:10 Lipitor 10 Mg Tablet PO 12/16/19 21:59 10 mg QHS BEAU Administration Celecoxib 200 mg 11/16/19 18:00 11/17/19 17:25 Celebrex 200 Mg Capsule PO 12/16/19 17:59 200 mg BID BEAU Administration Dextrose 12.5 gm 11/16/19 13:53 Dextrose Inj 50% Syringe (25 Gm/50 Ml) IV 12/16/19 13:52 PRN PRN FOR BG 50-69 IN ALERT PATIENT Protocol Dextrose 25 gm 11/16/19 13:53 Dextrose Inj 50% Syringe (25 Gm/50 Ml) IV 12/16/19 13:52 PRN PRN PER PROTOCOL Protocol Enoxaparin Sodium 105 mg 11/17/19 06:00 11/17/19 17:14 Lovenox Inj 120 Mg/0.8 Ml Disp.Syrin SUBCUT 12/17/19 05:59 Not Given Q12A BEAU Fenofibrate 145 mg 11/17/19 10:00 11/17/19 09:40 Tricor 145 Mg Tablet PO 12/17/19 09:59 145 mg DAILY BEAU Administration Glucagon 1 mg 11/16/19 13:53 Glucagen Inj 1 Mg Vial IM 12/16/19 13:52 PRN PRN Evaluate for BG < 70 Protocol Glucose 15 gm 11/16/19 13:53 Glutose 40% Gel 15 Gm Tube PO 12/16/19 13:52 PRN PRN FOR BG 50-69 IN ALERT PATIENT Protocol Glucose 30 gm 11/16/19 13:53 Glutose 40% Gel 15 Gm Tube PO 12/16/19 13:52 PRN PRN FOR BG < 50 IN ALERT PATIENT Protocol Ceftriaxone Sodium/Dextrose 1 gm in 50 mls @ 100 mls/hr 11/17/19 10:00 11/17/19 10:11 Rocephin Rtu 1 Gm/D5w 50 Ml Premix IV 11/24/19 09:59 Infused DAILY BEAU Infusion Insulin Human Regular 0 - 12 unit 11/16/19 16:00 11/17/19 21:09 Humulin R (Pyxis) Insulin 100 Unit/Ml 3ml SUBCUT 12/16/19 15:59 Not Given ACHS [facility] Protocol Levothyroxine Sodium 0.1 mg 11/17/19 06:00 11/17/19 05:29 Synthroid 0.1 Mg Tablet PO 12/17/19 05:59 0.1 mg Q6AM BEAU Administration Loratadine 10 mg 11/17/19 10:00 11/17/19 09:40 Claritin 10 Mg Tablet PO 12/17/19 09:59 10 mg DAILY BEAU Administration Lorazepam 0.5 mg 11/16/19 18:40 Ativan 0.5 Mg Tablet PO 11/23/19 18:39 Q4HP PRN ANXIETY/AGITATION Lubiprostone 24 mcg 11/16/19 22:00 11/17/19 21:11 Amitiza 24 Mcg Capsule PO 12/16/19 21:59 24 mcg Q12 BEAU Administration Magnesium Hydroxide 30 ml 11/16/19 13:45 Milk Of Magnesia 30 Ml Udcup PO 12/16/19 13:44 DAILYP PRN FOR CONSTIPATION Metaxalone 800 mg 11/16/19 18:00 11/17/19 17:25 Skelaxin 800 Mg Tablet PO 12/16/19 17:59 800 mg TID BEAU Administration Metformin HCl 250 mg 11/16/19 17:00 11/17/19 16:06 Glucophage 500 Mg Tablet PO 12/16/19 16:59 250 mg BIDACBS BEAU Administration Morphine Sulfate 4 mg 11/16/19 15:46 Morphine 10 Mg/Ml Inj IV 11/23/19 15:45 Q6HP PRN FOR PAIN SCALE 4-5 Oxycodone/Acetaminophen 1 tab 11/16/19 18:34 Percocet 5-325 Mg Tablet PO 11/23/19 18:33 Q4HP PRN FOR PAIN SCALE 4-5 Pantoprazole Sodium 20 mg 11/17/19 06:00 11/17/19 05:[address] Tablet PO 12/17/19 05:59 20 mg Q6AM BEAU Administration Patient Own Medication 1 drop 11/17/19 10:00 Betaxolol Hcl [Betoptic S] OS 12/17/19 09:59 BID [facility] Patient Own Medication 1 drop 11/17/19 10:00 Brimonidine Tartrate [Alphagan P] OS 12/17/19 09:59 BID BEAU Potassium Chloride 10 meq 11/17/19 10:00 11/17/19 09:41 Klor-Con 10 Meq Tablet Er PO 12/17/19 09:59 10 meq DAILY BEAU Administration Prednisolone Acetate 1 drop 11/17/19 10:00 11/17/19 17:26 Inflamase 1% Oph Susp 5 Ml OS 12/17/19 09:59 1 drop BID BEAU Administration Pregabalin 100 mg 11/16/19 22:00 11/17/19 21:10 Lyrica 100 Mg Capsule PO 12/16/19 21:59 100 mg Q8 BEAU Administration Sitagliptin Phosphate 100 mg 11/17/19 10:00 11/17/19 09:40 Januvia 50 Mg Tablet PO 12/17/19 09:59 100 mg DAILY BEAU Administration Sodium Chloride 2.5 ml 11/16/19 14:00 11/17/19 21:11 Saline Flush 2.5 Ml Monoject Prefil Syrin IV 12/16/19 13:59 2.5 ml Q8 BEAU Administration Discontinued Medications Generic Name Dose Route Start Last Admin Trade Name Freq PRN Reason Stop Dose Admin Aspirin 81 mg 11/17/19 10:00 Aspirin 81 Mg Chewable Tablet PO 12/17/19 09:59 DAILY BEUA Sodium Chloride 1,000 mls @ 0 mls/hr 11/16/19 10:36 11/16/19 12:11 Nacl 0.9% 1000 Ml Iv Soln IV 11/16/19 10:37 Infused BOLUS ONE Infusion Wide Open Ceftriaxone Sodium/Dextrose 1 gm in 50 mls @ 100 mls/hr 11/16/19 11:46 11/16/19 12:31 Rocephin Rtu 1 Gm/D5w 50 Ml Premix IV 11/16/19 12:15 Infused NOW ONE Infusion Lactated Ringer's 1,000 mls @ 0 mls/hr 11/16/19 12:05 11/16/19 13:36 Lactated Ringers 1000 Ml Iv Soln IV 11/16/19 12:06 Infused BOLUS ONE Infusion Wide Open Sodium Chloride 1,000 mls @ 150 mls/hr 11/16/19 13:56 11/17/19 11:14 Nacl 0.9% 1000 Ml Iv Soln IV 12/16/19 13:55 Infused CONTINUOUS PRN Infusion THIS MED IS NOT "PRN" Sodium Chloride 500 mls @ 0 mls/hr 11/17/19 13:00 11/17/19 14:30 Nacl 0.9% 500 Ml Iv Soln IV 11/17/19 13:01 Infused BOLUS ONE Infusion Wide Open Morphine Sulfate 4 mg 11/16/19 16:30 11/16/19 15:50 Morphine 10 Mg/Ml Inj IV 11/16/19 16:31 4 mg NOW ONE Administration Morphine Sulfate Confirm 11/16/19 15:47 11/16/19 18:17 Morphine 10 Mg/Ml Inj Administered 11/16/19 15:48 Not Given Dose 10 mg .ROUTE .STK-MED ONE Potassium Chloride 20 meq 11/17/19 10:00 Potassium Chloride 20 Meq Packet PO 12/17/19 09:59 DAILY BEAU Review of Systems All systems: reviewed and no additional remarkable complaints except as stated constitutional: History of fever 103.7 with Reiger's. Complains of generalized fatigue and weakness. HEAD: No history of headaches or head injury. EYES: No history of amblyopia diplopia notes of amaurosis fugax. EARS: No history of hearing loss or tinnitus. NOSE: No history of hayfever. But has seasonal rhinorrhea. No history of nasal bleeding. MOUTH: No history of altered sensation states sensation no ulcers in the mouth. Respiratory: PRESENT: dyspnea. No cough or sputum production. No pleuritic chest pain. No hemoptysis. No wheezing. History of sleep apnea which she says is mild and uses CPAP as needed. No history of COPD. Gastrointestinal: PRESENT: constipation. No severe GI bleed. No history of hepatitis. No history of jaundice. Genitourinary: PRESENT: other - Urinary incontinence. Although the patient denies any hematuria pyuria or dysuria. Patient is being treated for urinary tract infection. Integumentary: PRESENT: wounds - Left heel, left ischium Psychiatric: PRESENT: anxiety - With likely panic attacks Allergic/Immunologic: PRESENT: seasonal rhinorrhea TEST ANALYST: No history of TIA or CVA. No severe headaches migraines or seizures. Physical Exam. The patient is morbidly obese. At present in no acute distress. She at present has no shortness of breath. Selected Entries 11/17/19 15:51 Temperature 98.3 F Temperature Oral Source Pulse Rate 90 Respiratory 20 Rate Blood Pressure 129/40 H Blood Pressure 69 Mean BP Location Right Arm BP Position Supine O2 Sat by Pulse 93 Oximetry Oxygen Flow 1.50 Rate Oxygen Delivery Nasal Cannula Method HEAD: Head is atraumatic normocephalic. Eyes: Pupils are equal round regular reactive light accommodation extraocular movements are normal there is no congenital pallor there is no scleral icterus. Ears: External auditory canals are clear, there are no lesions of the pinna. Nose: No deviated nasal septum and no inflammation of the nasal mucous membrane. Mouth: Mucous membranes of mouth are moist tongue is moist there is no ulcers there is no bleeding from the gums. Throat: There is no redness of the oropharynx there is no exudates. Skin: There is no petechia or ecchymosis there is no skin lesions or skin rashes. Neck: Neck is supple there is no JVD carotids equal there is no bruit there is no lymphadenopathy there is no neck stiffness. There is no goiter trachea central lungs: Lungs are clear to auscultation percussion there is no accessory muscles of respiration in use. There is no rhonchi rales or wheezing. There is no chest wall tenderness. HEART: S1-S2 is heard there is no S3 gallop there is no S4 gallop S1 is of normal intensity. There is no rub. The systolic murmur in the left sternal border and apex with mild aortic stenosis murmur without thrill.. Abdomen: Abdomen is soft nontender there is no paraspinal megaly bowel sounds well heard there is no tender areas of masses. There is no rebound guarding or rigidity. Extremities: Femorals are well felt there is no femoral bruits neck pulses are well felt there is no pedal edema there is no DVT or cellulitis there is no cyanosis or clubbing there is no DVT or cellulitis. There is no calf tenderness. TEST ANALYST: The patient is awake alert oriented 3 with no focal deficits. Psychiatric: The patient judgment and insight are intact and her affect is normal. The patient EKG done yesterday and today shows sinus rhythm. Left anterior fascicular block. No acute changes. Labs- Entire Visit 11/16/19 11/16/19 11/16/19 09:40 09:40 09:40 WBC 14.8 H RBC 4.25 Hgb 12.9 Hct 37.3 MCV 88 MCH 30.4 MCHC 34.7 RDW 13.6 Plt Count 159 Lymph % (Auto) Not Reportable [place] % (Auto) Not Reportable Eos % (Auto) Not Reportable Baso % (Auto) Not Reportable Absolute Neuts (auto) Not Reportable Absolute Lymphs (auto) Not Reportable Absolute Monos (auto) Not Reportable Absolute Eos (auto) Not Reportable Absolute Basos (auto) Not Reportable Total Counted 100 Seg Neutrophils % Not Reportable Seg Neuts % (Manual) 81 H Band Neutrophils % 2 L Lymphocytes % (Manual) 9 L Monocytes % (Manual) 8 Eosinophils % (Manual) 0 Basophils % (Manual) 0 Abs Neuts (Manual) 12.3 H Abs Lymphs (Manual) 1.3 Abs Monocytes (Manual) 1.2 Absolute Eos (Manual) 0.0 Abs Basophils (Manual) 0.0 Toxic Granulation SLIGHT Platelet Comment ADEQUATE RBC Morph Comment NORMO-CYTIC/CHROMIC PT 14.4 INR 1.11 VBG pH VBG pCO2 VBG HCO3 VBG Base Excess Sodium 139.6 Potassium 3.6 Chloride 103 Carbon Dioxide 25 Anion Gap 12 BUN 38 H Creatinine 0.95 Est GFR ( Amer) > 60 Est GFR (MDRD) Non-Af 56 L Glucose 126 H POC Glucose Lactic Acid Calcium 9.7 Magnesium Total Bilirubin 1.2 Direct Bilirubin 0.3 Neonat Total Bilirubin Not Reportable Neonat Direct Bilirubin Not Reportable Neonat Indirect Bili Not Reportable AST 35 ALT 21 Alkaline Phosphatase 62 Creatine Kinase CK-MB (CK-2) Troponin I NT-Pro-B Natriuret Pep Total Protein 6.7 Albumin 3.8 Urine Color Urine Appearance Urine pH Ur Specific [place] Urine Protein Urine Glucose (UA) Urine Ketones Urine Blood Urine Nitrite Urine Bilirubin Urine Urobilinogen Ur Leukocyte Esterase Urine WBC (Auto) Urine RBC (Auto) U Hyaline Cast (Auto) Urine Bacteria (Auto) Urine WBC Clumps Squamous Epi Cells Auto Urine Mucus (Auto) Urine Ascorbic Acid Influenza A (Rapid) Influenza B (Rapid) 11/16/19 11/16/19 11/16/19 09:40 09:40 09:40 WBC RBC Hgb Hct MCV MCH MCHC RDW Plt Count Lymph % (Auto) [place] % (Auto) Eos % (Auto) Baso % (Auto) Absolute Neuts (auto) Absolute Lymphs (auto) Absolute Monos (auto) Absolute Eos (auto) Absolute Basos (auto) Total Counted Seg Neutrophils % Seg Neuts % (Manual) Band Neutrophils % Lymphocytes % (Manual) Monocytes % (Manual) Eosinophils % (Manual) Basophils % (Manual) Abs Neuts (Manual) Abs Lymphs (Manual) Abs Monocytes (Manual) Absolute Eos (Manual) Abs Basophils (Manual) Toxic Granulation Platelet Comment RBC Morph Comment PT INR VBG pH VBG pCO2 VBG HCO3 VBG Base Excess Sodium Potassium Chloride Carbon Dioxide Anion Gap BUN Creatinine Est GFR ( Amer) Est GFR (MDRD) Non-Af Glucose POC Glucose Lactic Acid 1.9 Calcium Magnesium Total Bilirubin Direct Bilirubin Neonat Total Bilirubin Neonat Direct Bilirubin Neonat Indirect Bili AST ALT Alkaline Phosphatase Creatine Kinase CK-MB (CK-2) Troponin I 0.059 NT-Pro-B Natriuret Pep Total Protein Albumin Urine Color Urine Appearance Urine pH Ur Specific [place] Urine Protein Urine Glucose (UA) Urine Ketones Urine Blood Urine Nitrite Urine Bilirubin Urine Urobilinogen Ur Leukocyte Esterase Urine WBC (Auto) Urine RBC (Auto) U Hyaline Cast (Auto) Urine Bacteria (Auto) Urine WBC Clumps Squamous Epi Cells Auto Urine Mucus (Auto) Urine Ascorbic Acid Influenza A (Rapid) NEGATIVE Influenza B (Rapid) NEGATIVE 11/16/19 11/16/19 11/16/19 09:40 10:10 10:25 WBC RBC Hgb Hct MCV MCH MCHC RDW Plt Count Lymph % (Auto) [place] % (Auto) Eos % (Auto) Baso % (Auto) Absolute Neuts (auto) Absolute Lymphs (auto) Absolute Monos (auto) Absolute Eos (auto) Absolute Basos (auto) Total Counted Seg Neutrophils % Seg Neuts % (Manual) Band Neutrophils % Lymphocytes % (Manual) Monocytes % (Manual) Eosinophils % (Manual) Basophils % (Manual) Abs Neuts (Manual) Abs Lymphs (Manual) Abs Monocytes (Manual) Absolute Eos (Manual) Abs Basophils (Manual) Toxic Granulation Platelet Comment RBC Morph Comment PT INR VBG pH 7.40 VBG pCO2 36.6 VBG HCO3 22.2 VBG Base Excess -2.1 Sodium Potassium Chloride Carbon Dioxide Anion Gap BUN Creatinine Est GFR ( Amer) Est GFR (MDRD) Non-Af Glucose POC Glucose 133 H Lactic Acid Calcium Magnesium Total Bilirubin Direct Bilirubin Neonat Total Bilirubin Neonat Direct Bilirubin Neonat Indirect Bili AST ALT Alkaline Phosphatase Creatine Kinase CK-MB (CK-2) Troponin I NT-Pro-B Natriuret Pep 1140 H Total Protein Albumin Urine Color Urine Appearance Urine pH Ur Specific [place] Urine Protein Urine Glucose (UA) Urine Ketones Urine Blood Urine Nitrite Urine Bilirubin Urine Urobilinogen Ur Leukocyte Esterase Urine WBC (Auto) Urine RBC (Auto) U Hyaline Cast (Auto) Urine Bacteria (Auto) Urine WBC Clumps Squamous Epi Cells Auto Urine Mucus (Auto) Urine Ascorbic Acid Influenza A (Rapid) Influenza B (Rapid) 11/16/19 11/16/19 11/16/19 10:25 12:32 15:23 WBC RBC Hgb Hct MCV MCH MCHC RDW Plt Count Lymph % (Auto) [place] % (Auto) Eos % (Auto) Baso % (Auto) Absolute Neuts (auto) Absolute Lymphs (auto) Absolute Monos (auto) Absolute Eos (auto) Absolute Basos (auto) Total Counted Seg Neutrophils % Seg Neuts % (Manual) Band Neutrophils % Lymphocytes % (Manual) Monocytes % (Manual) Eosinophils % (Manual) Basophils % (Manual) Abs Neuts (Manual) Abs Lymphs (Manual) Abs Monocytes (Manual) Absolute Eos (Manual) Abs Basophils (Manual) Toxic Granulation Platelet Comment RBC Morph Comment PT INR VBG pH VBG pCO2 VBG HCO3 VBG Base Excess Sodium Potassium Chloride Carbon Dioxide Anion Gap BUN Creatinine Est GFR ( Amer) Est GFR (MDRD) Non-Af Glucose POC Glucose Lactic Acid 1.0 2.1 Calcium Magnesium Total Bilirubin Direct Bilirubin Neonat Total Bilirubin Neonat Direct Bilirubin Neonat Indirect Bili AST ALT Alkaline Phosphatase Creatine Kinase CK-MB (CK-2) Troponin I NT-Pro-B Natriuret Pep Total Protein Albumin Urine Color YELLOW Urine Appearance CLOUDY Urine pH 6.0 Ur Specific [place] 1.014 Urine Protein 30 H Urine Glucose (UA) NEGATIVE Urine Ketones NEGATIVE Urine Blood MODERATE H Urine Nitrite POSITIVE H Urine Bilirubin NEGATIVE Urine Urobilinogen NEGATIVE Ur Leukocyte Esterase SMALL H Urine WBC (Auto) 125 Urine RBC (Auto) 2 U Hyaline Cast (Auto) 1 Urine Bacteria (Auto) 1+ Urine WBC Clumps FEW Squamous Epi Cells Auto 4 Urine Mucus (Auto) RARE Urine Ascorbic Acid NEGATIVE Influenza A (Rapid) Influenza B (Rapid) 11/16/19 11/16/19 11/16/19 18:35 21:17 22:16 WBC RBC Hgb Hct MCV MCH MCHC RDW Plt Count Lymph % (Auto) [place] % (Auto) Eos % (Auto) Baso % (Auto) Absolute Neuts (auto) Absolute Lymphs (auto) Absolute Monos (auto) Absolute Eos (auto) Absolute Basos (auto) Total Counted Seg Neutrophils % Seg Neuts % (Manual) Band Neutrophils % Lymphocytes % (Manual) Monocytes % (Manual) Eosinophils % (Manual) Basophils % (Manual) Abs Neuts (Manual) Abs Lymphs (Manual) Abs Monocytes (Manual) Absolute Eos (Manual) Abs Basophils (Manual) Toxic Granulation Platelet Comment RBC Morph Comment PT INR VBG pH VBG pCO2 VBG HCO3 VBG Base Excess Sodium Potassium Chloride Carbon Dioxide Anion Gap BUN Creatinine Est GFR ( Amer) Est GFR (MDRD) Non-Af Glucose POC Glucose 121 H Lactic Acid Calcium Magnesium Total Bilirubin Direct Bilirubin Neonat Total Bilirubin Neonat Direct Bilirubin Neonat Indirect Bili AST ALT Alkaline Phosphatase Creatine Kinase CK-MB (CK-2) Troponin I 0.224 0.300 NT-Pro-B Natriuret Pep Total Protein Albumin Urine Color Urine Appearance Urine pH Ur Specific [place] Urine Protein Urine Glucose (UA) Urine Ketones Urine Blood Urine Nitrite Urine Bilirubin Urine Urobilinogen Ur Leukocyte Esterase Urine WBC (Auto) Urine RBC (Auto) U Hyaline Cast (Auto) Urine Bacteria (Auto) Urine WBC Clumps Squamous Epi Cells Auto Urine Mucus (Auto) Urine Ascorbic Acid Influenza A (Rapid) Influenza B (Rapid) 11/17/19 11/17/19 11/17/19 04:30 04:30 04:30 WBC 11.4 H RBC 4.09 Hgb 12.2 Hct 36.1 MCV 88 MCH 29.8 MCHC 33.8 RDW 14.1 H Plt Count 123 L Lymph % (Auto) 5.3 L [place] % (Auto) 9.6 Eos % (Auto) 0.0 Baso % (Auto) 0.1 Absolute Neuts (auto) 9.7 H Absolute Lymphs (auto) 0.6 Absolute Monos (auto) 1.1 Absolute Eos (auto) 0.0 Absolute Basos (auto) 0.0 Total Counted Seg Neutrophils % 85.0 H Seg Neuts % (Manual) Band Neutrophils % Lymphocytes % (Manual) Monocytes % (Manual) Eosinophils % (Manual) Basophils % (Manual) Abs Neuts (Manual) Abs Lymphs (Manual) Abs Monocytes (Manual) Absolute Eos (Manual) Abs Basophils (Manual) Toxic Granulation Platelet Comment RBC Morph Comment PT INR VBG pH VBG pCO2 VBG HCO3 VBG Base Excess Sodium Potassium Chloride Carbon Dioxide Anion Gap BUN Creatinine Est GFR ( Amer) Est GFR (MDRD) Non-Af Glucose POC Glucose Lactic Acid Calcium Magnesium Total Bilirubin Direct Bilirubin Neonat Total Bilirubin Neonat Direct Bilirubin Neonat Indirect Bili AST ALT Alkaline Phosphatase Creatine Kinase 145 H CK-MB (CK-2) 2.00 Troponin I 0.197 NT-Pro-B Natriuret Pep Total Protein Albumin Urine Color Urine Appearance Urine pH Ur Specific [place] Urine Protein Urine Glucose (UA) Urine Ketones Urine Blood Urine Nitrite Urine Bilirubin Urine Urobilinogen Ur Leukocyte Esterase Urine WBC (Auto) Urine RBC (Auto) U Hyaline Cast (Auto) Urine Bacteria (Auto) Urine WBC Clumps Squamous Epi Cells Auto Urine Mucus (Auto) Urine Ascorbic Acid Influenza A (Rapid) Influenza B (Rapid) 11/17/19 11/17/19 11/17/19 04:30 05:42 11:21 WBC RBC Hgb Hct MCV MCH MCHC RDW Plt Count Lymph % (Auto) [place] % (Auto) Eos % (Auto) Baso % (Auto) Absolute Neuts (auto) Absolute Lymphs (auto) Absolute Monos (auto) Absolute Eos (auto) Absolute Basos (auto) Total Counted Seg Neutrophils % Seg Neuts % (Manual) Band Neutrophils % Lymphocytes % (Manual) Monocytes % (Manual) Eosinophils % (Manual) Basophils % (Manual) Abs Neuts (Manual) Abs Lymphs (Manual) Abs Monocytes (Manual) Absolute Eos (Manual) Abs Basophils (Manual) Toxic Granulation Platelet Comment RBC Morph Comment PT INR VBG pH VBG pCO2 VBG HCO3 VBG Base Excess Sodium 140.9 Potassium 3.4 L Chloride 107 Carbon Dioxide 23 Anion Gap 11 BUN 25 H Creatinine 0.74 Est GFR ( Amer) > 60 Est GFR (MDRD) Non-Af > 60 Glucose 103 POC Glucose 107 86 Lactic Acid Calcium 8.9 Magnesium 1.5 L Total Bilirubin Direct Bilirubin Neonat Total Bilirubin Neonat Direct Bilirubin Neonat Indirect Bili AST ALT Alkaline Phosphatase Creatine Kinase CK-MB (CK-2) Troponin I NT-Pro-B Natriuret Pep Total Protein Albumin Urine Color Urine Appearance Urine pH Ur Specific [place] Urine Protein Urine Glucose (UA) Urine Ketones Urine Blood Urine Nitrite Urine Bilirubin Urine Urobilinogen Ur Leukocyte Esterase Urine WBC (Auto) Urine RBC (Auto) U Hyaline Cast (Auto) Urine Bacteria (Auto) Urine WBC Clumps Squamous Epi Cells Auto Urine Mucus (Auto) Urine Ascorbic Acid Influenza A (Rapid) Influenza B (Rapid) 11/17/19 11/17/19 15:53 20:19 WBC RBC Hgb Hct MCV MCH MCHC RDW Plt Count Lymph % (Auto) [place] % (Auto) Eos % (Auto) Baso % (Auto) Absolute Neuts (auto) Absolute Lymphs (auto) Absolute Monos (auto) Absolute Eos (auto) Absolute Basos (auto) Total Counted Seg Neutrophils % Seg Neuts % (Manual) Band Neutrophils % Lymphocytes % (Manual) Monocytes % (Manual) Eosinophils % (Manual) Basophils % (Manual) Abs Neuts (Manual) Abs Lymphs (Manual) Abs Monocytes (Manual) Absolute Eos (Manual) Abs Basophils (Manual) Toxic Granulation Platelet Comment RBC Morph Comment PT INR VBG pH VBG pCO2 VBG HCO3 VBG Base Excess Sodium Potassium Chloride Carbon Dioxide Anion Gap BUN Creatinine Est GFR ( Amer) Est GFR (MDRD) Non-Af Glucose POC Glucose 157 H 147 H Lactic Acid Calcium Magnesium Total Bilirubin Direct Bilirubin Neonat Total Bilirubin Neonat Direct Bilirubin Neonat Indirect Bili AST ALT Alkaline Phosphatase Creatine Kinase CK-MB (CK-2) Troponin I NT-Pro-B Natriuret Pep Total Protein Albumin Urine Color Urine Appearance Urine pH Ur Specific [place] Urine Protein Urine Glucose (UA) Urine Ketones Urine Blood Urine Nitrite Urine Bilirubin Urine Urobilinogen Ur Leukocyte Esterase Urine WBC (Auto) Urine RBC (Auto) U Hyaline Cast (Auto) Urine Bacteria (Auto) Urine WBC Clumps Squamous Epi Cells Auto Urine Mucus (Auto) Urine Ascorbic Acid Influenza A (Rapid) Influenza B (Rapid) Chest X-Ray 11/16/19 09:37 IMPRESSION: NO ACUTE RADIOGRAPHIC FINDING IN THE CHEST. ECHOCARDIOGRAM: Shows normal left chamber size with no wall motion abnormality. Ejection fraction is normal. There is mild to moderate pulmonary hypertension. There is mild aortic stenosis. IMPRESSION RECOMMENDATION: 1. Elevated troponin I. This is secondary to type II myocardial infarction, due to supply demand mismatch. No evidence of non-ST relation [place]. The troponin is trending down. We will treat the underlying cause 2. Urinary tract infection with sepsis: Continue antibiotics 3. Hypertension: Well-controlled continue current medication. 4. Diabetes mellitus type 2 with neuropathy. Continue antidiabetic treatment and Accu-Cheks as per protocol. 5. Hypothyroidism: Continue thyroid replacement. 6. Perineal ulceration also has a skin area: Continue current treatment. 7. Mild aortic stenosis. This is hemodynamically insignificant. 8. Mild to moderate pulmonary hypertension. 9. Morbid obesity. 10. Multiple coronary artery disease risk factors namely age, hypertension, diabetes mellitus,. And hyperlipidemia. Medications reviewed. Medication regimen and management plan discussed with attending provider on the case. Medical decision making is of moderate to high complexity. 60 minutes spent as patient more than 50% of time spent in direct patient care. Will follow.
[2019-11-17] MEDS: ATORVASTATIN CALCIUM 10 MG TABLET PO SCH (21:10)
[2019-11-17] MEDS: AMITRIPTYLINE HCL 25 MG TABLET PO SCH (21:11)
[2019-11-18] MEDS: ACETAMINOPHEN 325 MG TABLET PO PRN ×2 (01:34→11:20)
[2019-11-18] MEDS: IPRATROPIUM/ALBUTEROL 0.5-2.5 MG/3 ML AMPUL NEB SCH ×4 (02:16→19:49)
[2019-11-18] MEDS: LEVOTHYROXINE SODIUM 0.1 MG TABLET PO SCH (05:28)
[2019-11-18] MEDS: PREGABALIN 100 MG CAPSULE PO SCH ×3 (05:28→21:50)
[2019-11-18] MEDS: PANTOPRAZOLE SODIUM 20 MG TABLET.DR PO SCH (05:28)
[2019-11-18] MEDS: ENOXAPARIN SODIUM INJ 120 MG/0.8 ML DISP.SYRIN SUBCUT SCH ×2 (05:28→17:43)
[2019-11-18 06:15] LABS: ABSOLUTE LYMPHOCYTES (AUTO) 0.6 10^3/uL (0.5-4.7); ABSOLUTE MONOCYTES (AUTO) 0.8 10^3/uL (0.1-1.4); ABSOLUTE NEUT (AUTO) 4.8 10^3/uL (1.7-8.2); BASOPHILS % (AUTO) 0.1 % (0-2); HEMATOCRIT 32.5 % (36.0-47.0); HEMOGLOBIN 11.3 g/dL (12.0-15.5); LYMPHOCYTES % (AUTO) 9.2 % (13-45); MEAN CORPUSCULAR HEMOGLOBIN 30.5 pg (27.0-33.4); MEAN CORPUSCULAR HGB CONC 34.8 g/dL (32.0-36.0); MEAN CORPUSCULAR VOLUME 88 fl (80-97); MONOCYTES % (AUTO) 13.1 % (3-13); PLATELET COUNT 119 10^3/uL (150-450); SEGMENTED NEUTROPHILS % (AUTO) 77.6 % (42-78); TOTAL CELLS COUNTED % (AUTO) 100 %; WHITE BLOOD COUNT 6.2 10^3/uL (4.0-10.5)
[2019-11-18] MEDS: INSULIN REG, HUMAN 100 UNIT/ML 3 ML VIAL (PYX) SUBCUT SCH ×4 (08:41→21:47)
[2019-11-18] MEDS: METFORMIN HCL 500 MG TABLET PO SCH ×2 (08:49→16:37)
--- NOTE | 2019-11-18 09:32 | PDOC PROGRESS REPORT ---
Subjective Progress Note for:: 11/18/19 Subjective:: The patient is resting comfortably. She still reports occasional chills. She states that she gets cold often. She does have hypothyroidism. I will check a TSH. She reports that her breathing feels comfortable but she is still on oxygen. Her BNP is higher than on admission. She did need fluids because of sepsis and low blood pressure initially. Reason For Visit: UROSEPSIS Physical Exam Vital Signs: Temp Pulse Resp BP Pulse Ox 97.7 F 85 24 H 116/50 L 94 11/18/19 08:00 11/18/19 08:00 11/18/19 08:00 11/18/19 08:00 11/18/19 08:00 Intake & Output 11/17/19 11/18/19 11/19/19 06:59 06:59 06:59 Intake Total 2632 1901 Output Total 2460 1710 Balance 172 191 Weight 107.6 kg 108.6 kg General appearance: PRESENT: no acute distress, cooperative, morbidly obese, well-developed Head exam: PRESENT: atraumatic, normocephalic Ear exam: PRESENT: normal external ear exam. ABSENT: bleeding, drainage Mouth exam: PRESENT: moist, tongue midline Teeth exam: PRESENT: poor dentation Respiratory exam: PRESENT: rales - Faint at bases, symmetrical, unlabored. ABSENT: accessory muscle use, prolonged expiratory phas, rhonchi, tachypnea, wheezes Cardiovascular exam: PRESENT: RRR, +S1, +S2, systolic murmur - 2/6 Pulses: PRESENT: normal radial pulses, +1 pedal pulses bilateral GI/Abdominal exam: PRESENT: normal bowel sounds, soft, other - Protuberant abdomen. ABSENT: guarding, mass, tenderness Rectal exam: PRESENT: deferred Gentrourinary exam: PRESENT: indwelling catheter Extremities exam: ABSENT: pedal edema Musculoskeletal exam: PRESENT: normal inspection. ABSENT: deformity, dislocation Neurological exam: PRESENT: alert, awake, oriented to person, oriented to place, oriented to time, oriented to situation, CN II-XII grossly intact Psychiatric exam: PRESENT: appropriate affect, normal mood. ABSENT: agitated, anxious Focused psych exam: ABSENT: delusional, paranoid, restlessness Skin exam: PRESENT: dry, normal color, warm, other - Ulcer left heel with dressing in place. ABSENT: rash Results Laboratory Results: 11/18/19 05:59 11/17/19 04:30 11/17/19 11/18/19 04:30 05:59 WBC 6.2 RBC 3.70 L Hgb 11.3 L Hct 32.5 L MCV 88 MCH 30.5 MCHC 34.8 RDW 14.0 Plt Count 119 L Seg Neutrophils % 77.6 Sodium 140.9 Potassium 3.4 L Chloride 107 Carbon Dioxide 23 Anion Gap 11 BUN 25 H Creatinine 0.74 Est GFR ( Amer) > 60 Glucose 103 Calcium 8.9 Magnesium 1.5 L 11/16/19 11/16/19 11/16/19 09:40 09:40 18:35 Creatine Kinase CK-MB (CK-2) Troponin I 0.059 0.224 NT-Pro-B Natriuret Pep 1140 H 11/16/19 11/17/19 11/17/19 22:16 04:30 04:30 Creatine Kinase 145 H CK-MB (CK-2) 2.00 Troponin I 0.300 0.197 NT-Pro-B Natriuret Pep 11/18/19 05:59 Creatine Kinase CK-MB (CK-2) Troponin I NT-Pro-B Natriuret Pep 3390 H Impressions: Chest X-Ray 11/16/19 09:37 IMPRESSION: NO ACUTE RADIOGRAPHIC FINDING IN THE CHEST. Assessment and Plan - Diagnosis (1) Hypotension Qualifiers: Hypotension type: other hypotension type Qualified Code(s): I95.89 - Other hypotension Is this a current diagnosis for this admission?: Yes Plan: 11/16/2019 Secondary to sepsis. She has not had a good appetite over the last several days either. We will hold antihypertensives until blood pressure improves. Continue IV fluids. 11/17/2019 Blood pressure was slightly elevated yesterday but is low again today. I have held her antihypertensive medications. Await echocardiogram. 11/18/2019 Transient yesterday. Responded to 500 mL bolus of fluid. BNP is up from admission. This is due to the fluids that she received for her initial diagnosis of sepsis. We will monitor her pressures closely and begin to slowly remove fluid. (2) UTI (urinary tract infection) Qualifiers: Urinary tract infection type: acute cystitis Hematuria presence: without hematuria Qualified Code(s): N30.00 - Acute cystitis without hematuria Is this a current diagnosis for this admission?: Yes Plan: 11/16/2019 The patient has had several urinary tract infections recently. It is likely a combination of rectal prolapse and suspicion of bladder prolapse with urinary retention. At 84 she is not a very good candidate for major surgery. A urine culture has been obtained. We will utilize IV ceftriaxone and wait for final identification and sensitivities. 11/17/2019 Gram-negative bacilli isolated in the blood. Anticipate gram-negative bacilli in the urine as well. She is already on antibiotic therapy. 11/18/2019 It appears that there are possibly 2 different gram-negative bacilli. She is on ceftriaxone. This should cover most of the common pathogens. Await final identification and sensitivities. (3) Rectal prolapse Is this a current diagnosis for this admission?: Yes Plan: 11/16/2019 The patient has a history of constipation. She has tried multiple [id number] products. The prolapse was reducible. We will try and improve her bowel regimen to minimize the prolapse events. 11/17/2019 Patient is going to try and get a second opinion regarding possible corrective surgery after this infection clears. 11/18/2019 Continue to monitor. Continue to improve bowel regimen. Reduce if the rectum prolapses again. (4) Non-healing wound of left heel Is this a current diagnosis for this admission?: Yes Plan: 11/16/2019 This wound was present on admission. The patient has been seen at the wound care center. I printed the last wound care center note. This is felt to be a Pao ulcer down to stage II. Currently utilizing Acticoat dressing covered with dry dressing and secured with tape. Change every 48 hours. 11/17/2019 Continue current dressing changes and heel offloading 11/18/2019 Continue current dressing changes. Offload the heel. She will follow-up with the wound care center after discharge. (5) Decubitus ulcer of left perineal ischial region, stage 3 Is this a current diagnosis for this admission?: Yes Plan: 11/16/2019 As noted above the patient has been seen at the wound care center. This is a pressure ulcer. It is almost healed completely. We do not have DuoDERM dressings. The patient's daughter has graciously agreed to see if there are extra DuoDERM dressings at home and bring them in. In the meantime we will appl y barrier cream liberally and reposition the patient. 11/17/2019 The patient's daughter is going to bring in some DuoDERM dressings if she has any at home. Continue barrier cream and repositioning to offload the area. 11/18/2019 As above (6) Hypertension Qualifiers: Hypertension type: essential hypertension Qualified Code(s): I10 - Essential (primary) hypertension Is this a current diagnosis for this admission?: Yes Plan: 11/16/2019 Because of her sepsis with hypotension her antihypertensives will be on hold temporarily. Her blood pressure is improving I expect we may resume these medications tomorrow. 11/17/2019 Blood pressure was actually slightly high yesterday. Currently not on any antihypertensives. Blood pressure was low this morning. We will continue to monitor. Echocardiogram is pending. 11/18/2019 Because of the increased BNP and volume given at the time of admission I will use small doses of furosemide and then return the patient to and a home ant ihypertensive regimen when her blood pressure will support this (7) Hyperglycemia due to type 2 diabetes mellitus Qualifiers: Diabetes mellitus terminal carman insulin use: without terminal carman use Qualified Code(s): E11.65 - Type 2 diabetes mellitus with hyperglycemia Is this a current diagnosis for this admission?: Yes Plan: 11/16/2019 The patient is on oral medications alone. I have asked for fingersticks twice daily with sliding scale coverage. Her appetite appears to be good and so we will likely continue the oral medications as prescribed. 11/17/2019 Current regimen exhibits good control. Continue fingersticks and sliding scale coverage as well as oral medications. 11/18/2019 Accu-Cheks reveal good glucose control at this time. No changes in her regimen. (8) Hypothyroidism Qualifiers: Hypothyroidism type: unspecified Qualified Code(s): E03.9 - Hypothyroidism, unspecified Is this a current diagnosis for this admission?: Yes Plan: 11/16/2019 Continue 100 mcg levothyroxine daily 11/17/2019 No change in therapy 11/18/2019 The patient reports this morning that she continues to feel chills. I told her it might be related to the infection. She states that she tends to get cold a lot. I told her we would check her TSH. (9) Chronic osteoarthritis Is this a current diagnosis for this admission?: Yes Plan: 11/16/2019 The patient sees a extension agent. She has bad arthritis in both shoulders. She has a history of osteomyelitis in her lumbar spine with high likelihood of degenerative changes. She is on Skelaxin and Celebrex. She also has narcotic analgesia for use at home. While she is here and may try and streamline 11/17/2019 Continue current anti-inflammatory and analgesic regimen (10) Degenerative disc disease Qualifiers: Spinal region: lumbar Qualified Code(s): M51.36 - Other intervertebral disc degeneration, lumbar region Is this a current diagnosis for this admission?: Yes Plan: 11/16/2019 Secondary to her morbid obesity, generalized osteoarthritis with age as well as a history of lumbar osteomyelitis. We will continue current regimen for pain management. 11/17/2019 Pain management as above (11) Anxiety Is this a current diagnosis for this admission?: Yes Plan: 11/16/2019 I was contacted by the nurse on the fourth floor prior to completing her admission. The patient was tachypneic with respiratory rate greater than 30. She was exhibiting increased work of breathing. She had received fluids for her sepsis and heart failure was a consideration. She did respond to a dose of IV morphine but she also admits to high anxiety and possible panic attacks. I will have Lorazepam available if needed and also discussed with her the use of a long -term medication such as sertraline. 11/17/2019 Seems more relaxed today. Continue to monitor. 11/18/2019 Feels comfortable today. No need for additional medication at this time. (12) Morbid obesity Is this a current diagnosis for this admission?: Yes Plan: 11/16/2019 Clearly a significant risk factor for the patient. Because of her arthritic issues and her advanced age she is not a candidate for a rigorous exercise program. Aggressive weight management through diet would be helpful. (13) Diabetic neuropathy associated with type 2 diabetes mellitus Qualifiers: Diabetes mellitus complication detail: diabetic polyneuropathy Qualified Code(s): E11.42 - Type 2 diabetes mellitus with diabetic polyneuropathy Is this a current diagnosis for this admission?: Yes Plan: 11/16/2019 The left heel ulcer is likely a product of pressure and neuropathy. The patient reports that Lyrica is effective for neuropathic pain. She is also on multiple other agents with analgesic properties. We will continue her Lyrica at this time. 11/17/2019 Currently stable. Continue current medication regimen (14) Constipation due to opioid therapy Is this a current diagnosis for this admission?: Yes Plan: 11/16/2019 The patient has been on long-term opiate therapy. She reports longstanding constipation. I explained that this is likely a contributing factor to her rectal prolapse. We will institute a trial of lubiprostone for opiate-induced constipation. 11/17/2019 Currently on a trial of lubiprostone. We will continue to monitor. 11/18/2019 Records indicate at least 2 bowel movements since admission. Continue trial of lubiprostone (15) Acute metabolic encephalopathy Is this a current diagnosis for this admission?: Yes Plan: 11/16/2019 Secondary to sepsis with urinary tract infection 11/17/2019 Patient still exhibits slight forgetfulness. She admits to some confusion about the time of day. She is improved from the time of admission. 11/18/2019 Resolved. I believe she is back at her baseline. (16) Sepsis due to urinary tract infection Is this a current diagnosis for this admission?: Yes Plan: 11/16/2019 Patient meets sepsis criteria. Several boluses of IV fluid with ongoing IV saline at this time. Antibiotic therapy initiated after cultures obtained. Will continue to monitor on telemetry and with recurrent vital signs. Of note, at the time of this encounter the patient was doing quite well, eating supper and conversing with myself and her daughter. 11/17/2019 Sepsis resolved with antibiotics and fluid 11/18/2019 The patient had minor episodes of low blood pressure yesterday. She responded to a 500 mL bolus of saline. It is likely still related to infection but the sepsis has resolved. (17) Leukocytosis Qualifiers: Leukocytosis type: bandemia Qualified Code(s): D72.825 - Bandemia Is this a current diagnosis for this admission?: Yes Plan: 11/16/2019 The patient had an elevated white blood cell count with 2% bands in addition to a high percentage of neutrophils. We will monitor with serial lab tests. I expect the white blood cell count to improve with ongoing antibiotic therapy. 11/17/2019 Improved on antibiotic therapy. Not quite normal yet. Recheck tomorrow. 11/18/2019 Resolved - Time Time Spent with patient: 15-24 minutes Medications reviewed and adjusted accordingly: Yes Anticipated discharge: Home
[2019-11-18 09:34] LABS: ANION GAP 8 (5-19); BLOOD UREA NITROGEN 20 mg/dL (7-20); CALCIUM 8.6 mg/dL (8.4-10.2); CARBON DIOXIDE 25 mmol/L (22-30); CHLORIDE 106 mmol/L (98-107); GLUCOSE 111 mg/dL (75-110); POTASSIUM 3.4 mmol/L (3.6-5.0)
[2019-11-18] MEDS: SITAGLIPTIN PHOSPHATE 50 MG TABLET PO SCH (09:48)
[2019-11-18] MEDS: LORATADINE 10 MG TABLET PO SCH (09:48)
[2019-11-18] MEDS: CEFTRIAXONE 1 GM/D5W RTU 1 GM/50 ML RTUPB IV SCH (09:48)
[2019-11-18] MEDS: LUBIPROSTONE 24 MCG CAPSULE PO SCH ×2 (09:48→21:50)
[2019-11-18] MEDS: ASPIRIN 81 MG TABLET, ENT COATED PO SCH (09:48)
[2019-11-18] MEDS: CELECOXIB 200 MG CAPSULE PO SCH ×2 (09:48→17:44)
[2019-11-18] MEDS: POTASSIUM CHLORIDE 10 MEQ TABLET.ER PO SCH (09:48)
[2019-11-18] MEDS: PREDNISOLONE ACETATE 1% OPH SUSP 5 ML OS SCH ×2 (09:49→17:45)
[2019-11-18] MEDS: FENOFIBRATE NANOCRYSTALLIZED 145 MG TABLET PO SCH (09:49)
[2019-11-18] MEDS: METAXALONE 800 MG TABLET PO SCH ×3 (09:49→17:48)
[2019-11-18] MEDS ORDERED: FUROSEMIDE 20 MG TABLET PO ONE (10:00)
--- NOTE | 2019-11-18 12:33 | EKG REPORT ---
SEVERITY:- OTHERWISE NORMAL ECG - SINUS RHYTHM ATRIAL PREMATURE COMPLEX : Confirmed by: Christina Mosqueda MD 18-Nov-2019 12:32:19
--- NOTE | 2019-11-18 14:32 | Progress Note ---
Provider Note Provider Note: Cardiology PROGRESS NOTE by Dr. Christina Mosqueda on 11/17 10/18. SUBJECTIVE: The patient denies any chest pain or discomfort. There is no shortness of breath. There is no PND orthopnea or leg edema. There is no palpitations. There is no arrhythmia seen on the monitor. The patient's has no symptoms of UTI. There is no TIA CVA symptoms. The patient's EKG shows sinus rhythm with 1 PAC and essentially is normal. The patient's troponin I is trended down to 0.076. PHYSICAL EXAMINATION: The patient is morbidly obese in no acute distress. Selected Entries 11/18/19 11:17 Temperature 98.6 F Temperature Oral Source Pulse Rate 85 Respiratory 20 Rate Blood Pressure 117/54 L Blood Pressure 75 Mean BP Location Left Arm BP Position Supine O2 Sat by Pulse 97 Oximetry Oxygen Flow 1.00 Rate Oxygen Delivery Nasal Cannula Method HEAD: Head is atraumatic normocephalic. Eyes: Pupils are equal round regular reactive light accommodation extraocular movements are normal there is no congenital pallor there is no scleral icterus. Ears: External auditory canals are clear, there are no lesions of the pinna. Nose: No deviated nasal septum and no inflammation of the nasal mucous membrane. Mouth: Mucous membranes of mouth are moist tongue is moist there is no ulcers there is no bleeding from the gums. Throat: There is no redness of the oropharynx there is no exudates. Skin: There is no petechia or ecchymosis there is no skin lesions or skin rashes. Neck: Neck is supple there is no JVD carotids equal there is no bruit there is no lymphadenopathy there is no neck stiffness. There is no goiter trachea central lungs: Lungs are clear to auscultation percussion there is no accessory muscles of respiration in use. There is no rhonchi rales or wheezing. There is no chest wall tenderness. HEART: S1-S2 is heard there is no S3 gallop there is no S4 gallop S1 is of normal intensity. There is no rub. The systolic murmur in the left sternal border and apex with mild aortic stenosis murmur without thrill.. Abdomen: Abdomen is soft nontender there is no paraspinal megaly bowel sounds well heard there is no tender areas of masses. There is no rebound guarding or rigidity. Extremities: Femorals are well felt there is no femoral bruits neck pulses are well felt there is no pedal edema there is no DVT or cellulitis there is no cyanosis or clubbing there is no DVT or cellulitis. There is no calf tenderness. W[employer] OPERATOR: The patient is awake alert oriented 3 with no focal deficits. Psychiatric: The patient judgment and insight are intact and her affect is normal. EKG: Sinus rhythm. APC otherwise within normal limits. Labs- All tests 24 hr 11/17/19 11/17/19 11/18/19 15:53 20:19 05:15 WBC RBC Hgb Hct MCV MCH MCHC RDW Plt Count Lymph % (Auto) [place] % (Auto) Eos % (Auto) Baso % (Auto) Absolute Neuts (auto) Absolute Lymphs (auto) Absolute Monos (auto) Absolute Eos (auto) Absolute Basos (auto) Seg Neutrophils % Sodium Potassium Chloride Carbon Dioxide Anion Gap BUN Creatinine Est GFR ( Amer) Est GFR (MDRD) Non-Af Glucose POC Glucose 157 H 147 H 130 H Calcium Magnesium Troponin I NT-Pro-B Natriuret Pep TSH 11/18/19 11/18/19 11/18/19 05:59 05:59 05:59 WBC 6.2 RBC 3.70 L Hgb 11.3 L Hct 32.5 L MCV 88 MCH 30.5 MCHC 34.8 RDW 14.0 Plt Count 119 L Lymph % (Auto) 9.2 L [place] % (Auto) 13.1 H Eos % (Auto) 0.0 Baso % (Auto) 0.1 Absolute Neuts (auto) 4.8 Absolute Lymphs (auto) 0.6 Absolute Monos (auto) 0.8 Absolute Eos (auto) 0.0 Absolute Basos (auto) 0.0 Seg Neutrophils % 77.6 Sodium 139.2 Potassium 3.4 L Chloride 106 Carbon Dioxide 25 Anion Gap 8 BUN 20 Creatinine 0.81 Est GFR ( Amer) > 60 Est GFR (MDRD) Non-Af > 60 Glucose 111 H POC Glucose Calcium 8.6 Magnesium 1.5 L Troponin I NT-Pro-B Natriuret Pep 3390 H TSH 11/18/19 11/18/19 11/18/19 05:59 05:59 11:18 WBC RBC Hgb Hct MCV MCH MCHC RDW Plt Count Lymph % (Auto) [place] % (Auto) Eos % (Auto) Baso % (Auto) Absolute Neuts (auto) Absolute Lymphs (auto) Absolute Monos (auto) Absolute Eos (auto) Absolute Basos (auto) Seg Neutrophils % Sodium Potassium Chloride Carbon Dioxide Anion Gap BUN Creatinine Est GFR ( Amer) Est GFR (MDRD) Non-Af Glucose POC Glucose 132 H Calcium Magnesium Troponin I 0.076 NT-Pro-B Natriuret Pep TSH 0.57 Chest X-Ray 11/16/19 09:37 IMPRESSION: NO ACUTE RADIOGRAPHIC FINDING IN THE CHEST. IMPRESSION RECOMMENDATION: 1. Elevated troponin I. This is secondary to type II myocardial infarction, due to supply demand mismatch. No evidence of non-ST relation [place]. The troponin is trending down. We will treat the underlying cause the patient is EKG is normal. And the troponin is trending down to 0.076. 2. Urinary tract infection with sepsis: Continue antibiotics 3. Hypertension: Well-controlled continue current medication. 4. Diabetes mellitus type 2 with neuropathy. Continue antidiabetic treatment and Accu-Cheks as per protocol. 5. Hypothyroidism: Continue thyroid replacement. 6. Perineal ulceration also has a skin area: Continue current treatment. 7. Mild aortic stenosis. This is hemodynamically insignificant. 8. Mild to moderate pulmonary hypertension. 9. Morbid obesity. 10. Multiple coronary artery disease risk factors namely age, hypertension, diabetes mellitus,. And hyperlipidemia. Medications reviewed. Medication regimen and management plan discussed with attending provider on the case. Medical decision making is of moderate complexity
[2019-11-18] MEDS: AMITRIPTYLINE HCL 25 MG TABLET PO SCH (21:50)
[2019-11-18] MEDS: ATORVASTATIN CALCIUM 10 MG TABLET PO SCH (21:50)
[2019-11-19] MEDS: IPRATROPIUM/ALBUTEROL 0.5-2.5 MG/3 ML AMPUL NEB SCH ×4 (02:06→21:23)
[2019-11-19] MEDS: ENOXAPARIN SODIUM INJ 120 MG/0.8 ML DISP.SYRIN SUBCUT SCH ×2 (05:00→18:00)
[2019-11-19] MEDS: LEVOTHYROXINE SODIUM 0.1 MG TABLET PO SCH (05:02)
[2019-11-19] MEDS: PREGABALIN 100 MG CAPSULE PO SCH ×3 (05:02→22:50)
[2019-11-19] MEDS: PANTOPRAZOLE SODIUM 20 MG TABLET.DR PO SCH (05:02)
[2019-11-19 05:14] LABS: HEMATOCRIT 33.4 % (36.0-47.0); HEMOGLOBIN 11.7 g/dL (12.0-15.5); MEAN CORPUSCULAR HEMOGLOBIN 30.5 pg (27.0-33.4); MEAN CORPUSCULAR HGB CONC 35.1 g/dL (32.0-36.0); MEAN CORPUSCULAR VOLUME 87 fl (80-97); PLATELET COUNT 106 10^3/uL (150-450); RED BLOOD COUNT 3.84 10^6/uL (3.72-5.28); WHITE BLOOD COUNT 6.2 10^3/uL (4.0-10.5)
[2019-11-19 05:47] LABS: ABSOLUTE LYMPHOCYTES# (MANUAL) 0.7 10^3/uL (0.5-4.7); ABSOLUTE MONOCYTES # (MANUAL) 0.7 10^3/uL (0.1-1.4); BAND NEUTROPHILS % (MANUAL) 3 % (3-5); BASOPHILS % (MANUAL) 0 % (0-2); EOSINOPHILS % (MANUAL) 0 % (0-6); LYMPHOCYTES % (MANUAL) 11 % (13-45); MONOCYTES % (MANUAL) 12 % (3-13); POLYCHROMASIA SLIGHT; SEGMENTED NEUTROPHILS % (MAN) 74 % (42-78); TOTAL CELLS COUNTED 100; TOXIC GRANULATION SLIGHT
[2019-11-19 05:48] LABS: ANISOCYTOSIS SLIGHT; BURR CELLS SLIGHT; PLATELET COMMENT DECREASED
[2019-11-19] MEDS: INSULIN REG, HUMAN 100 UNIT/ML 3 ML VIAL (PYX) SUBCUT SCH ×4 (08:29→23:23)
[2019-11-19] MEDS: POTASSIUM CHLORIDE 10 MEQ TABLET.ER PO SCH (09:33)
[2019-11-19] MEDS: METFORMIN HCL 500 MG TABLET PO SCH ×2 (09:34→18:00)
[2019-11-19] MEDS: ASPIRIN 81 MG TABLET, ENT COATED PO SCH (09:34)
[2019-11-19] MEDS: LORATADINE 10 MG TABLET PO SCH (09:34)
[2019-11-19] MEDS: METAXALONE 800 MG TABLET PO SCH ×3 (09:43→17:59)
[2019-11-19] MEDS: LUBIPROSTONE 24 MCG CAPSULE PO SCH ×2 (09:43→22:50)
[2019-11-19] MEDS: FENOFIBRATE NANOCRYSTALLIZED 145 MG TABLET PO SCH (09:43)
[2019-11-19] MEDS: SITAGLIPTIN PHOSPHATE 50 MG TABLET PO SCH (09:43)
[2019-11-19] MEDS: CELECOXIB 200 MG CAPSULE PO SCH ×2 (09:43→18:00)
[2019-11-19] MEDS: PREDNISOLONE ACETATE 1% OPH SUSP 5 ML OS SCH ×2 (09:44→18:00)
[2019-11-19] MEDS: CEFTRIAXONE 1 GM/D5W RTU 1 GM/50 ML RTUPB IV SCH (09:49)
--- NOTE | 2019-11-19 10:59 | PDOC PROGRESS REPORT ---
Subjective Progress Note for:: 11/19/19 Subjective:: The patient is up in the chair. She appears quite comfortable. Blood and urine cultures were positive. E. coli and Proteus are present. Physical therapy did see her and she is extremely weak and will benefit from short-term rehab. Reason For Visit: UROSEPSIS Physical Exam Vital Signs: Temp Pulse Resp BP Pulse Ox 97.2 F 89 20 145/50 H 92 11/19/19 08:00 11/19/19 08:43 11/19/19 08:43 11/19/19 08:00 11/19/19 08:43 Intake & Output 11/18/19 11/19/19 11/20/19 06:59 06:59 06:59 Intake Total 1901 1050 Output Total 1710 2375 Balance 191 -1325 Weight 108.6 kg 108.5 kg General appearance: PRESENT: no acute distress, cooperative, morbidly obese, well-developed Ear exam: PRESENT: normal external ear exam. ABSENT: bleeding, drainage Mouth exam: PRESENT: moist, tongue midline Respiratory exam: PRESENT: clear to auscultation erika, symmetrical, unlabored. ABSENT: prolonged expiratory phas, rales, rhonchi, tachypnea, wheezes Cardiovascular exam: PRESENT: RRR, +S1, +S2 GI/Abdominal exam: PRESENT: normal bowel sounds, soft, other - Protuberant abdomen. ABSENT: guarding, tenderness Rectal exam: PRESENT: deferred Gentrourinary exam: PRESENT: indwelling catheter Neurological exam: PRESENT: alert, awake, oriented to person, oriented to place, oriented to time, oriented to situation, CN II-XII grossly intact Psychiatric exam: PRESENT: appropriate affect. ABSENT: agitated, anxious Results Laboratory Results: 11/19/19 04:27 11/18/19 05:59 11/19/19 04:27 WBC 6.2 RBC 3.84 Hgb 11.7 L Hct 33.4 L MCV 87 MCH 30.5 MCHC 35.1 RDW 14.0 Plt Count 106 L Seg Neutrophils % Not Reportable 11/16/19 11:00 Blood Blood Culture - Final Escherichia Coli 11/16/19 10:25 Blood Blood Culture - Final Proteus Mirabilis 11/16/19 10:25 Clean Catch Midstream Urine Culture - Final Proteus Mirabilis Escherichia Coli 0311/16/19 11/16/19 09:40 09:40 18:35 Creatine Kinase CK-MB (CK-2) Troponin I 0.059 0.224 NT-Pro-B Natriuret Pep 1140 H 11/16/19 11/17/19 11/17/19 22:16 04:30 04:30 Creatine Kinase 145 H CK-MB (CK-2) 2.00 Troponin I 0.300 0.197 NT-Pro-B Natriuret Pep 11/18/19 11/18/19 05:59 05:59 Creatine Kinase CK-MB (CK-2) Troponin I 0.076 NT-Pro-B Natriuret Pep 3390 H Impressions: Chest X-Ray 11/16/19 09:37 IMPRESSION: NO ACUTE RADIOGRAPHIC FINDING IN THE CHEST. Assessment and Plan - Diagnosis (1) Proteus mirabilis infection Is this a current diagnosis for this admission?: Yes Plan: 11/19/2019 The urine had Proteus and E. coli. 1 set of blood cultures had Proteus and the other set of blood cultures for E. coli. This is a very odd presentation. I have drawn new blood cultures today. I expect them to be negative. The patient is receiving ceftriaxone. Therapy is due to end November 23. (2) E coli bacteremia Is this a current diagnosis for this admission?: Yes Plan: 11/19/2019 As noted above both bacteria were in the urine and one blood culture set was positive for E. coli the other for Proteus. Both are sensitive to ceftriaxone. Ceftriaxone through November 24, 2019 (3) UTI (urinary tract infection) Qualifiers: Urinary tract infection type: acute cystitis Hematuria presence: without hematuria Qualified Code(s): N30.00 - Acute cystitis without hematuria Is this a current diagnosis for this admission?: Yes Plan: 11/16/2019 The patient has had several urinary tract infections recently. It is likely a combination of rectal prolapse and suspicion of bladder prolapse with urinary retention. At 84 she is not a very good candidate for major surgery. A urine culture has been obtained. We will utilize IV ceftriaxone and wait for final identification and sensitivities. 11/17/2019 Gram-negative bacilli isolated in the blood. Anticipate gram-negative bacilli in the urine as well. She is already on antibiotic therapy. 11/18/2019 It appears that there are possibly 2 different gram-negative bacilli. She is on ceftriaxone. This should cover most of the common pathogens. Await final iden tification and sensitivities. 11/19/2019 As above (4) Rectal prolapse Is this a current diagnosis for this admission?: Yes Plan: 11/16/2019 The patient has a history of constipation. She has tried multiple [id number] products. The prolapse was reducible. We will try and improve her bowel regimen to minimize the prolapse events. 11/17/2019 Patient is going to try and get a second opinion regarding possible corrective surgery after this infection clears. 11/18/2019 Continue to monitor. Continue to improve bowel regimen. Reduce if the rectum prolapses again. (5) Non-healing wound of left heel Is this a current diagnosis for this admission?: Yes Plan: 11/16/2019 This wound was present on admission. The patient has been seen at the wound care center. I printed the last wound care center note. This is felt to be a Pao ulcer down to stage II. Currently utilizing Acticoat dressing covered with dry dressing and secured with tape. Change every 48 hours. 11/17/2019 Continue current dressing changes and heel offloading 11/18/2019 Continue current dressing changes. Offload the heel. She will follow-up with the wound care center after discharge. (6) Decubitus ulcer of left perineal ischial region, stage 3 Is this a current diagnosis for this admission?: Yes Plan: 11/16/2019 As noted above the patient has been seen at the wound care center. This is a pressure ulcer. It is almost healed completely. We do not have DuoDERM dressings. The patient's daughter has graciously agreed to see if there are extra DuoDERM dressings at home and bring them in. In the meantime we will apply barrier cream liberally and reposition the patient. 11/17/2019 The patient's daughter is going to bring in some DuoDERM dressings if she has any at home. Continue barrier cream and repositioning to offload the area. 11/18/2019 As above (7) Hypertension Qualifiers: Hypertension type: essential hypertension Qualified Code(s): I10 - Essential (primary) hypertension Is this a current diagnosis for this admission?: Yes Plan: 11/16/2019 Because of her sepsis with hypotension her antihypertensives will be on hold temporarily. Her blood pressure is improving I expect we may resume these medications tomorrow. 11/17/2019 Blood pressure was actually slightly high yesterday. Currently not on any antihypertensives. Blood pressure was low this morning. We will continue to monitor. Echocardiogram is pending. 11/18/2019 Because of the increased BNP and volume given at the time of admission I will use small doses of furosemide and then return the patient to and a home antihypertensive regimen when her blood pressure will support this 11/19/2019 The patient blood pressures are better however they are not high enough to warrant resuming the telmisartan antihypertensive medication. We will continue to monitor the patient and resume her antihypertensive when appropriate. (8) Physical deconditioning Is this a current diagnosis for this admission?: Yes Plan: 11/19/2019 The patient is extremely weak. This in combination with the significant infection and multiple comorbidities make me believe that she would be an excellent intermediate facility candidate for short-term rehab. She is accepting of this plan. Discharge planning is aware. (9) Hyperglycemia due to type 2 diabetes mellitus Qualifiers: Diabetes mellitus senior living insulin use: without senior living use Qualified Code(s): E11.65 - Type 2 diabetes mellitus with hyperglycemia Is this a current diagnosis for this admission?: Yes Plan: 11/16/2019 The patient is on oral medications alone. I have asked for fingersticks twice daily with sliding scale coverage. Her appetite appears to be good and so we will likely continue the oral medications as prescribed. 11/17/2019 Current regimen exhibits good control. Continue fingersticks and sliding scale coverage as well as oral medications. 11/18/2019 Accu-Cheks reveal good glucose control at this time. No changes in her regimen. 11/19/2019 The last several Accu-Cheks were under 100. Will monitor with ongoing Accu- Cheks and cut back on her regimen if there is concern for hypoglycemia. (10) Hypothyroidism Qualifiers: Hypothyroidism type: unspecified Qualified Code(s): E03.9 - Hypothyroidism, unspecified Is this a current diagnosis for this admission?: Yes Plan: 11/16/2019 Continue 100 mcg levothyroxine daily 11/17/2019 No change in therapy 11/18/2019 The patient reports this morning that she continues to feel chills. I told her it might be related to the infection. She states that she tends to get cold a lot. I told her we would check her TSH. (11) Chronic osteoarthritis Is this a current diagnosis for this admission?: Yes Plan: 11/16/2019 The patient sees a care consultant. She has bad arthritis in both shoulders. She has a history of osteomyelitis in her lumbar spine with high likelihood of degenerative changes. She is on Skelaxin and Celebrex. She also has narcotic analgesia for use at home. While she is here and may try and streamline 11/17/2019 Continue current anti-inflammatory and analgesic regimen (12) Degenerative disc disease Qualifiers: Spinal region: lumbar Qualified Code(s): M51.36 - Other intervertebral disc degeneration, lumbar region Is this a current diagnosis for this admission?: Yes Plan: 11/16/2019 Secondary to her morbid obesity, generalized osteoarthritis with age as well as a history of lumbar osteomyelitis. We will continue current regimen for pain management. 11/17/2019 Pain management as above (13) Anxiety Is this a current diagnosis for this admission?: Yes Plan: 11/16/2019 I was contacted by the nurse on the fourth floor prior to completing her admission. The patient was tachypneic with respiratory rate greater than 30. She was exhibiting increased work of breathing. She had received fluids for her sepsis and heart failure was a consideration. She did respond to a dose of IV morphine but she also admits to high anxiety and possible panic attacks. I will have Lorazepam available if needed and also discussed with her the use of a long-term medication such as sertraline. 11/17/2019 Seems more relaxed today. Continue to monitor. 11/18/2019 Feels comfortable today. No need for additional medication at this time. 11/19/2019 Continue current regimen (14) Morbid obesity Is this a current diagnosis for this admission?: Yes Plan: 11/16/2019 Clearly a significant risk factor for the patient. Because of her arthritic issues and her advanced age she is not a candidate for a rigorous exercise program. Aggressive weight management through diet would be helpful. 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 The patient reports that Lyrica is effective for neuropathic pain. She is also on multiple other agents with analgesic properties. We will continue her Lyrica at this time. 11/17/2019 Currently stable. Continue current medication regimen (16) Constipation due to opioid therapy Is this a current diagnosis for this admission?: Yes Plan: 11/16/2019 The patient has been on long-term opiate therapy. She reports longstanding constipation. I explained that this is likely a contributing factor to her rectal prolapse. We will institute a trial of lubiprostone for opiate-induced constipation. 11/17/2019 Currently on a trial of lubiprostone. We will continue to monitor. 11/18/2019 Records indicate at least 2 bowel movements since admission. Continue trial of lubiprostone 11/19/2019 Patient had a bowel movement today. Continue current regimen. (17) Acute metabolic encephalopathy Is this a current diagnosis for this admission?: Yes Plan: 11/16/2019 Secondary to sepsis with urinary tract infection 11/17/2019 Patient still exhibits slight forgetfulness. She admits to some confusion about the time of day. She is improved from the time of admission. 11/18/2019 Resolved. I believe she is back at her baseline. (18) Leukocytosis Qualifiers: Leukocytosis type: bandemia Qualified Code(s): D72.825 - Bandemia Is this a current diagnosis for this admission?: Yes Plan: 11/16/2019 The patient had an elevated white blood cell count with 2% bands in addition to a high percentage of neutrophils. We will monitor with serial lab tests. I expect the white blood cell count to improve with ongoing antibiotic therapy. 11/17/2019 Improved on antibiotic therapy. Not quite normal yet. Recheck tomorrow. 11/18/2019 Resolved (19) Chronic diastolic heart failure Is this a current diagnosis for this admission?: Yes Plan: 11/18/2019 The echocardiogram did reveal grade 1/4 diastolic heart failure. She is already on a combination angiotensin receptor orion and thiazide diuretic. I am going to use intermittent furosemide over the next day or 2 to help with fluid balance. I will then return her to her home medications when her blood pressure tolerates it. 11/19/2019 Net negative fluid balance yesterday. I have not scheduled daily Lasix yet. Will assess on a daily basis. (20) Pulmonary hypertension Is this a current diagnosis for this admission?: Yes Plan: 11/18/2019 Conservative treatment at this time. Aim for good blood pressure control and fluid balance. (21) Hypotension Qualifiers: Hypotension type: other hypotension type Qualified Code(s): I95.89 - Other hypotension Is this a current diagnosis for this admission?: Yes Plan: 11/16/2019 Secondary to sepsis. She has not had a good appetite over the last several days either. We will hold antihypertensives until blood pressure improves. Continue IV fluids. 11/17/2019 Blood pressure was slightly elevated yesterday but is low again today. I have held her antihypertensive medications. Await echocardiogram. 11/18/2019 Transient yesterday. Responded to 500 mL bolus of fluid. BNP is up from admission. This is due to the fluids that she received for her initial diagnos is of sepsis. We will monitor her pressures closely and begin to slowly remove fluid. 11/19/2019 Resolved (22) Sepsis due to urinary tract infection Is this a current diagnosis for this admission?: Yes Plan: 11/16/2019 Patient meets sepsis criteria. Several boluses of IV fluid with ongoing IV saline at this time. Antibiotic therapy initiated after cultures obtained. Will continue to monitor on telemetry and with recurrent vital signs. Of note, at the time of this encounter the patient was doing quite well, eating supper an d conversing with myself and her daughter. 11/17/2019 Sepsis resolved with antibiotics and fluid 11/18/2019 The patient had minor episodes of low blood pressure yesterday. She responded to a 500 mL bolus of saline. It is likely still related to infection but the sepsis has resolved. 11/19/2019 Resolved. Procalcitonin drawn on admission was greater than 5. Normal upper limit is 0.08 - Time Time Spent with patient: 15-24 minutes Medications reviewed and adjusted accordingly: Yes Anticipated discharge: SNF
[2019-11-19 14:31] LABS: APPEARANCE,URINE CLEAR; BILIRUBIN,URINE NEGATIVE (NEGATIVE); COLOR,URINE STRAW; GLUCOSE, URINE NEGATIVE (NEGATIVE); KETONES,URINE NEGATIVE (NEGATIVE); LEUKOCYTE ESTERASE,URINE NEGATIVE (NEGATIVE); NITRITE,URINE NEGATIVE (NEGATIVE); PROTEIN,URINE NEGATIVE (NEGATIVE); URINE SPECIFIC GRAVITY 1.005; UROBILINOGEN,URINE NEGATIVE mg/dL (<2.0)
[2019-11-19] MEDS: AMITRIPTYLINE HCL 25 MG TABLET PO SCH (22:49)
[2019-11-19] MEDS: ATORVASTATIN CALCIUM 10 MG TABLET PO SCH (22:50)
[2019-11-20] MEDS: ACETAMINOPHEN 325 MG TABLET PO PRN (01:36)
[2019-11-20] MEDS: IPRATROPIUM/ALBUTEROL 0.5-2.5 MG/3 ML AMPUL NEB SCH ×4 (02:34→21:35)
[2019-11-20] MEDS: LEVOTHYROXINE SODIUM 0.1 MG TABLET PO SCH (06:33)
[2019-11-20] MEDS: PANTOPRAZOLE SODIUM 20 MG TABLET.DR PO SCH (06:33)
[2019-11-20] MEDS: PREGABALIN 100 MG CAPSULE PO SCH ×3 (06:33→22:10)
[2019-11-20] MEDS: ENOXAPARIN SODIUM INJ 120 MG/0.8 ML DISP.SYRIN SUBCUT SCH ×2 (06:36→18:14)
[2019-11-20] MEDS: METFORMIN HCL 500 MG TABLET PO SCH ×2 (09:55→18:11)
[2019-11-20] MEDS: CELECOXIB 200 MG CAPSULE PO SCH ×2 (09:55→18:14)
[2019-11-20] MEDS: ASPIRIN 81 MG TABLET, ENT COATED PO SCH (09:55)
[2019-11-20] MEDS: FENOFIBRATE NANOCRYSTALLIZED 145 MG TABLET PO SCH (09:57)
[2019-11-20] MEDS: SITAGLIPTIN PHOSPHATE 50 MG TABLET PO SCH (09:57)
[2019-11-20] MEDS: LORATADINE 10 MG TABLET PO SCH (09:57)
[2019-11-20] MEDS: LUBIPROSTONE 24 MCG CAPSULE PO SCH ×2 (09:57→22:10)
[2019-11-20] MEDS: POTASSIUM CHLORIDE 10 MEQ TABLET.ER PO SCH (09:57)
[2019-11-20] MEDS: PREDNISOLONE ACETATE 1% OPH SUSP 5 ML OS SCH ×2 (09:58→18:13)
[2019-11-20] MEDS: METAXALONE 800 MG TABLET PO SCH ×3 (09:58→18:23)
[2019-11-20] MEDS: INSULIN REG, HUMAN 100 UNIT/ML 3 ML VIAL (PYX) SUBCUT SCH ×4 (10:03→22:10)
[2019-11-20] MEDS: CEPHALEXIN 250 MG CAPSULE PO SCH ×2 (12:00→18:11)
--- NOTE | 2019-11-20 13:54 | PDOC PROGRESS REPORT ---
Subjective Progress Note for:: 11/20/19 Subjective:: Patient was seen on morning rounds. She was found sitting upright to the recliner, comfortably, on room air. She is alert and oriented to self, place, and situation. In fact, most of our conversation today was appropriate. However, both nursing and physical therapy reports that she has intermittent episodes of confusion and attention deficit. Patient denies fever, chills, chest pain, dyspnea, cough, abdominal pain, nausea vomiting or diarrhea. She had no questions or concerns. No concerns per nursing. Spoke with the patient's daughter by phone; she was concerned about the patient's intermittent confusion. Described that the confusion may be related to her urinary tract infection and hospital admission. Following the conversation, I also noted that the patient did receive oral Ativan for agitation this morning which certainly could have longstanding effects in elderly patients. All PRN sedating medications have since been discontinued. Reason For Visit: UROSEPSIS Physical Exam Vital Signs: Temp Pulse Resp BP Pulse Ox 97.6 F 82 22 H 144/65 H 92 11/20/19 11:54 11/20/19 11:54 11/20/19 11:54 11/20/19 11:54 11/20/19 11:54 Intake & Output 11/19/19 11/20/19 11/21/19 06:59 06:59 06:59 Intake Total 1050 1332 120 Output Total 2375 1500 Balance -1325 -168 120 Weight 108.5 kg 104.1 kg General appearance: PRESENT: no acute distress, cooperative, obese, well- developed, well-nourished Head exam: PRESENT: atraumatic, normocephalic Eye exam: PRESENT: conjunctiva pink, EOMI, PERRLA. ABSENT: scleral icterus Mouth exam: PRESENT: moist, tongue midline Neck exam: ABSENT: carotid bruit, JVD, lymphadenopathy, thyromegaly Respiratory exam: PRESENT: clear to auscultation erika, symmetrical, unlabored. ABSENT: rales, rhonchi, wheezes Cardiovascular exam: PRESENT: RRR, +S1, +S2. ABSENT: diastolic murmur, rubs, systolic murmur Pulses: PRESENT: normal dorsalis pedis pul Vascular exam: PRESENT: normal capillary refill GI/Abdominal exam: PRESENT: normal bowel sounds, soft. ABSENT: distended, guarding, mass, organolmegaly, rebound, tenderness Rectal exam: PRESENT: deferred Extremities exam: PRESENT: full ROM. ABSENT: calf tenderness, clubbing, pedal edema Neurological exam: PRESENT: alert, awake, oriented to person, oriented to place, oriented to situation, CN II-XII grossly intact, other - Intermittently confused. ABSENT: motor sensory deficit Psychiatric exam: PRESENT: appropriate affect, normal mood. ABSENT: homicidal ideation, suicidal ideation Skin exam: PRESENT: dry, intact, warm. ABSENT: cyanosis, rash Results Laboratory Results: 11/19/19 04:27 11/18/19 05:59 11/19/19 13:40 Urine Color STRAW Urine Appearance CLEAR Urine pH 6.0 Ur Specific [place] 1.005 Urine Protein NEGATIVE Urine Glucose (UA) NEGATIVE Urine Ketones NEGATIVE Urine Blood SMALL H Urine Nitrite NEGATIVE Ur Leukocyte Esterase NEGATIVE Urine WBC (Auto) 3 Urine RBC (Auto) 2 11/16/19 11/16/19 11/16/19 09:40 09:40 18:35 Creatine Kinase CK-MB (CK-2) Troponin I 0.059 0.224 NT-Pro-B Natriuret Pep 1140 H 11/16/19 11/17/19 11/17/19 22:16 04:30 04:30 Creatine Kinase 145 H CK-MB (CK-2) 2.00 Troponin I 0.300 0.197 NT-Pro-B Natriuret Pep 11/18/19 11/18/19 05:59 05:59 Creatine Kinase CK-MB (CK-2) Troponin I 0.076 NT-Pro-B Natriuret Pep 3390 H Impressions: Chest X-Ray 11/16/19 09:37 IMPRESSION: NO ACUTE RADIOGRAPHIC FINDING IN THE CHEST. Assessment and Plan - Diagnosis (1) Proteus mirabilis infection Is this a current diagnosis for this admission?: Yes Plan: The urine had Proteus and E. coli. 1 set of blood cultures had Proteus and the other set of blood cultures for E. coli. Repeat blood cultures are negative at 24 hours. She is received 4 days of IV Rocephin. Will transition to p.o. Keflex today. (2) E coli bacteremia Is this a current diagnosis for this admission?: Yes Plan: 11/19/2019 As noted above both bacteria were in the urine and one blood culture set was positive for E. coli the other for Proteus. Both are sensitive to cephalosporin s; transition to p.o. Keflex today. (3) UTI (urinary tract infection) Qualifiers: Urinary tract infection type: acute cystitis Hematuria presence: without hematuria Qualified Code(s): N30.00 - Acute cystitis without hematuria Is this a current diagnosis for this admission?: Yes Plan: Urine culture positive for Proteus Mirabella's and E. coli. Both sensitive to cephalosporins. Received 4 days of IV Rocephin. Transition to p.o. Keflex today to complete course of therapy. (4) Acute metabolic encephalopathy Is this a current diagnosis for this admission?: Yes Plan: Multifactorial secondary to sepsis with urinary tract infection and exacerbated by use of PRN Ativan. Have discontinued all PRN sedating medications. Supportive care. Clear day/night cues. Fall precautions. No evidence of focal deficits necessitating stroke work-up or worsening infectious process. (5) Anxiety Is this a current diagnosis for this admission?: Yes Plan: Continue home dose Elavil Have discontinued PRN Ativan due to worsening confusion. Consider twice daily BuSpar. (6) Chronic diastolic heart failure Is this a current diagnosis for this admission?: Yes Plan: The echocardiogram revealed grade 1/4 diastolic heart failure. Resume home dose telmisartan/HCTZ. Continue home dose statin aspirin therapy. Cardiac diet. 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 She has bad arthritis in both shoulders. She has a history of osteomyelitis in her lumbar spine with high likelihood of degenerative changes. She is on Skelaxin and Celebrex. She also has narcotic analgesia for use at home. Continue home dose of Skelaxin, Elavil, Celebrex, Lyrica. As needed tylenol or tramadol. (8) Constipation due to opioid therapy Is this a current diagnosis for this admission?: Yes Plan: Resolved. Continue bowel regimen milk of magnesia as needed and Amitiza (9) Decubitus ulcer of left perineal ischial region, stage 3 Is this a current diagnosis for this admission?: Yes Plan: Followed by the wound care center; nearly healed. Patient's family member has agreed to bring in DuoDERM; otherwise use Allevyn's. 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 (11) Hyperglycemia due to type 2 diabetes mellitus Qualifiers: Diabetes mellitus fpc insulin use: without terminal makeup operator use Qualified Code(s): E11.65 - Type 2 diabetes mellitus with hyperglycemia Is this a current diagnosis for this admission?: Yes Plan: Blood glucose is well controlled; continue home dose Januvia and metformin Accu-Cheks before meals and at bedtime with sliding scale insulin. Cardiac/consistent carb diet. Hypoglycemia protocol in place (12) Hypertension Qualifiers: Hypertension type: essential hypertension Qualified Code(s): I10 - Essential (primary) hypertension Is this a current diagnosis for this admission?: Yes Plan: Resume home dose telmisartan/hydrochlorothiazide. Cardiac diet. (13) Hypotension Qualifiers: Hypotension type: other hypotension type Qualified Code(s): I95.89 - Other hypotension Is this a current diagnosis for this admission?: Yes Plan: Resolved. (14) Hypothyroidism Qualifiers: Hypothyroidism type: unspecified Qualified Code(s): E03.9 - Hypothyroidism, unspecified Is this a current diagnosis for this admission?: Yes Plan: TSH 0.57 Continue 100 mcg levothyroxine daily (15) Leukocytosis Qualifiers: Leukocytosis type: bandemia Qualified Code(s): D72.825 - Bandemia Is this a current diagnosis for this admission?: Yes Plan: Resolved (16) Morbid obesity Is this a current diagnosis for this admission?: Yes Plan: Clearly a significant risk factor for the patient. Because of her arthritic issues and her advanced age she is not a candidate for a rigorous exercise program. Aggressive weight management through diet would be helpful. Cardiac/consistent carb diet (17) Non-healing wound of left heel Is this a current diagnosis for this admission?: Yes Plan: This wound was present on admission. The patient has been seen at the wound care center. I printed the last wound care center note. This is felt to be a [place] ulcer down to stage II. Currently utilizing Acticoat dressing covered with dry dressing and secured with tape. Change every 48 hours. Offload the heel. She will follow-up with the wound care center after discharge. (18) Physical deconditioning Is this a current diagnosis for this admission?: Yes Plan: PT/OT consultation. Plan to discharge to SNF (19) Pulmonary hypertension Is this a current diagnosis for this admission?: Yes Plan: Conservative treatment at this time. Aim for good blood pressure control and fluid balance. (20) Rectal prolapse Is this a current diagnosis for this admission?: Yes Plan: Continue to monitor. Continue to improve bowel regimen. Reduce if the rectum prolapses again. (21) Sepsis due to urinary tract infection Is this a current diagnosis for this admission?: Yes Plan: Resolved. (22) Degenerative disc disease Qualifiers: Spinal region: lumbar Qualified Code(s): M51.36 - Other intervertebral disc degeneration, lumbar region Is this a current diagnosis for this admission?: Yes Plan: Secondary to her morbid obesity, generalized osteoarthritis with age as well as a history of lumbar osteomyelitis. We will continue current regimen for pain management. - Time Time Spent with patient: 25-34 minutes Medications reviewed and adjusted accordingly: Yes Anticipated discharge: SNF Within: when bed available
[2019-11-20] MEDS: HYDROCHLOROTHIAZIDE 25 MG TABLET PO SCH (18:20)
[2019-11-20] MEDS: LOSARTAN POTASSIUM 50 MG TABLET PO SCH (18:20)
[2019-11-20] MEDS: AMITRIPTYLINE HCL 25 MG TABLET PO SCH (22:10)
[2019-11-20] MEDS: ATORVASTATIN CALCIUM 10 MG TABLET PO SCH (22:10)
[2019-11-21] MEDS: CEPHALEXIN 250 MG CAPSULE PO SCH ×4 (00:51→17:22)
[2019-11-21] MEDS: IPRATROPIUM/ALBUTEROL 0.5-2.5 MG/3 ML AMPUL NEB SCH ×2 (02:51→08:57)
[2019-11-21 05:14] LABS: HEMATOCRIT 35.1 % (36.0-47.0); MEAN CORPUSCULAR HEMOGLOBIN 29.6 pg (27.0-33.4); MEAN CORPUSCULAR HGB CONC 34.1 g/dL (32.0-36.0); MEAN CORPUSCULAR VOLUME 87 fl (80-97); PLATELET COUNT 144 10^3/uL (150-450); RED BLOOD COUNT 4.05 10^6/uL (3.72-5.28); RED CELL DISTRIBUTION WIDTH 14.1 % (11.5-14.0); WHITE BLOOD COUNT 5.2 10^3/uL (4.0-10.5)
[2019-11-21] MEDS: PREGABALIN 100 MG CAPSULE PO SCH ×3 (05:31→21:57)
[2019-11-21] MEDS: PANTOPRAZOLE SODIUM 20 MG TABLET.DR PO SCH (05:31)
[2019-11-21] MEDS: ENOXAPARIN SODIUM INJ 120 MG/0.8 ML DISP.SYRIN SUBCUT SCH ×2 (05:31→17:20)
[2019-11-21] MEDS: LEVOTHYROXINE SODIUM 0.1 MG TABLET PO SCH (05:31)
[2019-11-21] MEDS: INSULIN REG, HUMAN 100 UNIT/ML 3 ML VIAL (PYX) SUBCUT SCH ×4 (08:28→21:58)
[2019-11-21] MEDS: METFORMIN HCL 500 MG TABLET PO SCH ×2 (08:29→17:21)
[2019-11-21] MEDS ORDERED: [UNRECOGNIZED DRUG - OTHER] PO SCH (10:00)
[2019-11-21] MEDS: SITAGLIPTIN PHOSPHATE 50 MG TABLET PO SCH (10:47)
[2019-11-21] MEDS: ASPIRIN 81 MG TABLET, ENT COATED PO SCH (10:47)
[2019-11-21] MEDS: POTASSIUM CHLORIDE 10 MEQ TABLET.ER PO SCH (10:47)
[2019-11-21] MEDS: LORATADINE 10 MG TABLET PO SCH (10:47)
[2019-11-21] MEDS: HYDROCHLOROTHIAZIDE 25 MG TABLET PO SCH (10:47)
[2019-11-21] MEDS: LOSARTAN POTASSIUM 50 MG TABLET PO SCH (10:47)
[2019-11-21] MEDS: LUBIPROSTONE 24 MCG CAPSULE PO SCH ×2 (10:47→21:57)
[2019-11-21] MEDS: CELECOXIB 200 MG CAPSULE PO SCH ×2 (10:48→17:22)
[2019-11-21] MEDS: PREDNISOLONE ACETATE 1% OPH SUSP 5 ML OS SCH ×2 (10:48→17:22)
[2019-11-21] MEDS: METAXALONE 800 MG TABLET PO SCH ×3 (10:48→17:22)
[2019-11-21] MEDS: FENOFIBRATE NANOCRYSTALLIZED 145 MG TABLET PO SCH (10:49)
--- NOTE | 2019-11-21 13:00 | PDOC TRANSFER SUMMARY ---
Impression - Admit/DC Date/PCP Admission Date/Primary Care Provider: 11/16/19 12:54 Discharge Date: 11/22/19 - Discharge Diagnosis (1) Proteus mirabilis infection Is this a current diagnosis for this admission?: Yes (2) E coli bacteremia Is this a current diagnosis for this admission?: Yes (3) UTI (urinary tract infection) Is this a current diagnosis for this admission?: Yes (4) Acute metabolic encephalopathy Is this a current diagnosis for this admission?: Yes (5) Anxiety Is this a current diagnosis for this admission?: Yes (6) Chronic diastolic heart failure Is this a current diagnosis for this admission?: Yes (7) Chronic osteoarthritis Is this a current diagnosis for this admission?: Yes (8) Constipation due to opioid therapy Is this a current diagnosis for this admission?: Yes (9) Decubitus ulcer of left perineal ischial region, stage 3 Is this a current diagnosis for this admission?: Yes (10) Diabetic neuropathy associated with type 2 diabetes mellitus Is this a current diagnosis for this admission?: Yes (11) Hyperglycemia due to type 2 diabetes mellitus Is this a current diagnosis for this admission?: Yes (12) Hypertension Is this a current diagnosis for this admission?: Yes (13) Hypotension Is this a current diagnosis for this admission?: Yes (14) Hypothyroidism Is this a current diagnosis for this admission?: Yes (15) Leukocytosis Is this a current diagnosis for this admission?: Yes (16) Morbid obesity Is this a current diagnosis for this admission?: Yes (17) Non-healing wound of left heel Is this a current diagnosis for this admission?: Yes (18) Physical deconditioning Is this a current diagnosis for this admission?: Yes (19) Pulmonary hypertension Is this a current diagnosis for this admission?: Yes (20) Rectal prolapse Is this a current diagnosis for this admission?: Yes (21) Sepsis due to urinary tract infection Is this a current diagnosis for this admission?: Yes (22) Degenerative disc disease Is this a current diagnosis for this admission?: Yes - Additional Information Resuscitation Status: Do Not Resuscitate Discharge Diet: Cardiac, Diabetic Discharge Activity: Activity As Tolerated, Balance Activity w/Rest, Slowly Increase Activity, Supervised Activity Referrals: YASMEEN DOWNING MD [ACTIVE STAFF] - (Provider saw patient in hospital and would like her to follow up with him.) FRANDY MARKS MD [COMMUNITY BASED STAFF] - Prescriptions: Cephalexin Monohydrate [Keflex 250 mg Capsule] 250 mg PO Q6 #20 capsule Home Medications: Celecoxib [Celebrex 200 mg Capsule] 200 mg PO Q12 03/27/14 Levothyroxine Sodium [Synthroid] 100 mcg PO Q6AM 03/27/14 Metaxalone [Skelaxin 800 mg Tablet] 800 mg PO Q8 03/27/14 Cholecalciferol (Vitamin D3) [Vitamin D3] 50,000 unit PO SA@1000 06/12/18 Fenofibrate Nanocrystallized [Tricor 145 mg Tablet] 145 mg PO QHS 06/12/18 Amitriptyline HCl [Elavil 25 mg Tablet] 50 mg PO QHS 11/16/19 Aspirin [Ecotrin 81 mg EC Tablet] 81 mg PO DAILY 11/16/19 Betaxolol HCl [Betoptic S] 1 drop OS BID 11/16/19 Brimonidine Tartrate [Alphagan P] 1 drop OS BID 11/16/19 Famciclovir 500 mg PO DAILY 11/16/19 Loratadine [Claritin] 10 mg PO DAILY 11/16/19 Metformin HCl [Metformin HCl ER] 1,000 mg PO DAILY 11/16/19 Oxycodone HCl/Acetaminophen [Oxycodon-Acetaminophen 7.5-325] 1 each PO Q8HP PRN 11/16/19 Potassium Chloride [Klor-Con 10 Meq Tablet ER] 10 meq PO DAILY 11/16/19 Pravastatin Sodium 10 mg PO QHS 11/16/19 Prednisolone Acetate [Inflamase 1% Oph Susp 5 ml] 1 drop OS BID 11/16/19 Pregabalin 100 mg PO Q8 11/16/19 Sitagliptin Phosphate [Januvia 50 mg Tablet] 100 mg PO DAILY 11/16/19 Telmisartan/Hydrochlorothiazid [Telmisartan-Hctz 80-25 mg Tab] 1 each PO DAILY 11/16/19 Acetaminophen [Tylenol 325 mg Tablet] 650 mg PO Q4HP PRN tablet 11/20/19 Cephalexin Monohydrate [Keflex 250 mg Capsule] 250 mg PO Q6 #20 capsule 11/21/19 History of Present Illiness History of Present Illness: Per H&P by Dr. 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 She has been having trouble with rectal prolapse and likely prolapsed bladder lately. She states that earlier this week she was scheduled to go to 2 appointments in [place]. One was her lace mender and the other was [employer]. She did not feel well and returned home. The patient does have a home health aide that visits on Tuesday, Tuesday and Tuesday. The patient's daughter states that EMS was called to her house twice yesterday. The daughter reports that her mother was confused last evening but by the time she got to the house EMS had gone. The home health arrived this morning and appreciated the fact that the patient was not well and called EMS after calling the patient's daughter advising her to come to the house. Valuation the emergency department revealed a fever of 103.7 degrees. Elevated white blood cell count and hypotension with a map of 60. The urinalysis was markedly positive. A culture was sent. The patient also had a rectal prolapse and this was reduced by the emergency department physician. The patient meets sepsis criteria with her hypotension and altered mental status. In addition, prior to this encounter she was tachypneic with a respiratory rate in the 30s as reported by her nurse on the floor. In addition she has exhibited signs of metabolic encephalopathy most likely due to the infection. She did not quite remember the details of EMS coming to her house last night and was somewhat confused about details of her recent history. She was referred to the hospital service for admission. Hospital Course Hospital Course: (1) Proteus mirabilis infection The urine had Proteus and E. coli. 1 set of blood cultures had Proteus and the other set of blood cultures for E. coli. Repeat blood cultures are negative at 24 hours. She has received 4 days of IV Rocephin. Have transitioned to p.o. Keflex to complete course of therapy. (2) E coli bacteremia 11/19/2019 As noted above both bacteria were in the urine and one blood culture set was positive for E. coli the other for Proteus. Both are sensitive to cephalosporins; transition to p.o. Keflex as above. (3) UTI (urinary tract infection) Urine culture positive for Proteus Mirabella's and E. coli. Both sensitive to cephalosporins. Received 4 days of IV Rocephin. Transition to p.o. Keflex to complete course of therapy. (4) Acute metabolic encephalopathy Significantly improved; nearing baseline. Pt A&Ox4 today. Multifactorial secondary to sepsis with urinary tract infection and exacerbated by use of PRN Ativan. Have discontinued all PRN sedating medications. Supportive care. Clear day/night cues. Fall precautions. (5) Anxiety Continue home dose Elavil Have discontinued PRN Ativan due to worsening confusion. Would recommend consideration of twice daily BuSpar. (6) Chronic diastolic heart failure The echocardiogram revealed grade 1/4 diastolic heart failure. Continue home dose telmisartan/HCTZ, statin aspirin therapy. (7) Chronic osteoarthritis 11/16/2019 The patient sees a lace mender. She has bad arthritis in both shoulders. She has a history of osteomyelitis in her lumbar spine with high likelihood of degenerative changes. She is on Skelaxin and Celebrex. She also has narcotic analgesia for use at home. Continue home dose of Skelaxin, Elavil, Celebrex, Lyrica. As needed tylenol or tramadol. (8) Constipation due to opioid therapy Resolved. Continue bowel regimen milk of magnesia as needed and Amitiza (9) Decubitus ulcer of left perineal ischial region, stage 3 Followed by the wound care center; nearly healed. Turn and reposition frequently to offload (10) Diabetic neuropathy associated with type 2 diabetes mellitus Continue home medication regiment of Celebrex and Lyrica Control of blood glucose. (11) Hyperglycemia due to type 2 diabetes mellitus Blood glucose is well controlled; continue home dose Januvia and metformin Accu-Cheks before meals and at bedtime with sliding scale insulin. Cardiac/consistent carb diet. (12) Hypertension Resume home dose telmisartan/hydrochlorothiazide. Cardiac diet. (13) Hypotension Resolved. (14) Hypothyroidism TSH 0.57 Continue 100 mcg levothyroxine daily (15) Leukocytosis Resolved (16) Morbid obesity Clearly a significant risk factor for the patient. Because of her arthritic issues and her advanced age she is not a candidate for a rigorous exercise program. Aggressive weight management through diet would be helpful. Cardiac/consistent carb diet (17) Non-healing wound of left heel This wound was present on admission. The patient has been seen at the wound care center. I printed the last wound care center note. This is felt to be a Crestone ulcer down to stage II. Currently utilizing Acticoat dressing covered with dry dressing and secured with tape. Change every 48 hours. Offload the heel. Recommend follow-up with the wound care center as previously scheduled. (18) Physical deconditioning Is this a current diagnosis for this admission?: Yes Plan: PT/OT consultation. Plan to discharge to SNF (19) Pulmonary hypertension Conservative treatment at this time. Aim for good blood pressure control and fluid balance. (20) Rectal prolapse Continue to monitor. Continue bowel regimen. Reduce if the rectum prolapses again. (21) Sepsis due to urinary tract infection Resolved. (22) Degenerative disc disease Secondary to her morbid obesity, generalized osteoarthritis with age as well as a history of lumbar osteomyelitis. We will continue current regimen for pain management. Physical Exam Vital Signs: Temp Pulse Resp BP Pulse Ox 97.5 F 78 16 148/61 H 93 11/21/19 07:30 11/21/19 08:57 11/21/19 08:57 11/21/19 07:30 11/21/19 08:57 Intake & Output 11/20/19 11/21/19 11/22/19 06:59 06:59 06:59 Intake Total 1332 1169 Output Total 1500 25 Balance -168 1144 Weight 104.1 kg 103.1 kg General appearance: PRESENT: no acute distress, cooperative, morbidly obese, well-developed, well-nourished Head exam: PRESENT: atraumatic, normocephalic Eye exam: PRESENT: conjunctiva pink, EOMI, PERRLA. ABSENT: scleral icterus Mouth exam: PRESENT: moist, tongue midline Neck exam: ABSENT: carotid bruit, JVD, lymphadenopathy, thyromegaly Respiratory exam: PRESENT: clear to auscultation erika, symmetrical, unlabored, other - Room air. ABSENT: rales, rhonchi, wheezes Cardiovascular exam: PRESENT: RRR. ABSENT: diastolic murmur, rubs, systolic murmur Pulses: PRESENT: normal dorsalis pedis pul Vascular exam: PRESENT: normal capillary refill GI/Abdominal exam: PRESENT: normal bowel sounds, soft. ABSENT: distended, guarding, mass, organolmegaly, rebound, tenderness Rectal exam: PRESENT: deferred Extremities exam: PRESENT: full ROM. ABSENT: calf tenderness, clubbing, pedal edema Neurological exam: PRESENT: alert, awake, oriented to person, oriented to place, oriented to time, oriented to situation, CN II-XII grossly intact, other - Intermittently forgetful/confused; especially at night. ABSENT: motor sensory deficit Psychiatric exam: PRESENT: appropriate affect, normal mood. ABSENT: homicidal ideation, suicidal ideation Skin exam: PRESENT: dry, intact, warm. ABSENT: cyanosis, rash Results Laboratory Results: WBC 5.2 10^3/uL (4.0-10.5) 11/21/19 04:20 RBC 4.05 10^6/uL (3.72-5.28) 11/21/19 04:20 Hgb 12.0 g/dL (12.0-15.5) 11/21/19 04:20 Hct 35.1 % (36.0-47.0) L 11/21/19 04:20 MCV 87 fl (80-97) 11/21/19 04:20 MCH 29.6 pg (27.0-33.4) 11/21/19 04:20 MCHC 34.1 g/dL (32.0-36.0) 11/21/19 04:20 RDW 14.1 % (11.5-14.0) H 11/21/19 04:20 Plt Count 144 10^3/uL (150-450) L 11/21/19 04:20 Lymph % (Auto) Not Reportable 11/19/19 04:27 [place] % (Auto) Not Reportable 11/19/19 04:27 Eos % (Auto) Not Reportable 11/19/19 04:27 Baso % (Auto) Not Reportable 11/19/19 04:27 Absolute Neuts (auto) Not Reportable 11/19/19 04:27 Absolute Lymphs (auto) Not Reportable 11/19/19 04:27 Absolute Monos (auto) Not Reportable 11/19/19 04:27 Absolute Eos (auto) Not Reportable 11/19/19 04:27 Absolute Basos (auto) Not Reportable 11/19/19 04:27 Total Counted 100 11/19/19 04:27 Seg Neutrophils % Not Reportable 11/19/19 04:27 Seg Neuts % (Manual) 74 % (42-78) 11/19/19 04:27 Band Neutrophils % 3 % (3-5) 11/19/19 04:27 Lymphocytes % (Manual) 11 % (13-45) L 11/19/19 04:27 Monocytes % (Manual) 12 % (3-13) 11/19/19 04:27 Eosinophils % (Manual) 0 % (0-6) 11/19/19 04:27 Basophils % (Manual) 0 % (0-2) 11/19/19 04:27 Abs Neuts (Manual) 4.8 10^3/uL (1.7-8.2) 11/19/19 04:27 Abs Lymphs (Manual) 0.7 10^3/uL (0.5-4.7) 11/19/19 04:27 Abs Monocytes (Manual) 0.7 10^3/uL (0.1-1.4) 11/19/19 04:27 Absolute Eos (Manual) 0.0 10^3/uL (0.0-0.6) 11/19/19 04:27 Abs Basophils (Manual) 0.0 10^3/uL (0.0-0.2) 11/19/19 04:27 Toxic Granulation SLIGHT 11/19/19 04:27 Platelet Comment DECREASED 11/19/19 04:27 Polychromasia SLIGHT 11/19/19 04:27 Anisocytosis SLIGHT 11/19/19 04:27 [place] Cells SLIGHT 11/19/19 04:27 RBC Morph Comment NORMO-CYTIC/CHROMIC 11/16/19 09:40 PT 14.4 SEC (11.4-15.4) 11/16/19 09:40 INR 1.11 11/16/19 09:40 VBG pH 7.40 (7.30-7.42) 11/16/19 10:25 VBG pCO2 36.6 mmHg (35-63) 11/16/19 10:25 VBG HCO3 22.2 mmol/L (20-32) 11/16/19 10:25 VBG Base Excess -2.1 mmol/L 11/16/19 10:25 Sodium 139.2 mmol/L (137-145) 11/18/19 05:59 Potassium 3.4 mmol/L (3.6-5.0) L 11/18/19 05:59 Chloride 106 mmol/L (98-107) 11/18/19 05:59 Carbon Dioxide 25 mmol/L (22-30) 11/18/19 05:59 Anion Gap 8 (5-19) 11/18/19 05:59 BUN 20 mg/dL (7-20) 11/18/19 05:59 Creatinine 0.81 mg/dL (0.52-1.25) 11/18/19 05:59 Est GFR ( Amer) > 60 (>60) 11/18/19 05:59 Est GFR (MDRD) Non-Af > 60 (>60) 11/18/19 05:59 Glucose 111 mg/dL (75-110) H 11/18/19 05:59 POC Glucose 90 mg/dL (70-110) 11/21/19 07:29 Lactic Acid 2.1 mmol/L (0.7-2.1) 11/16/19 15:23 Calcium 8.6 mg/dL (8.4-10.2) 11/18/19 05:59 Magnesium 1.5 mg/dL (1.6-2.3) L 11/18/19 05:59 Total Bilirubin 1.2 mg/dL (0.2-1.3) 11/16/19 09:40 Direct Bilirubin 0.3 mg/dL (0.0-0.4) 11/16/19 09:40 Neonat Total Bilirubin Not Reportable 11/16/19 09:40 Neonat Direct Bilirubin Not Reportable 11/16/19 09:40 Neonat Indirect Bili Not Reportable 11/16/19 09:40 AST 35 U/L (14-36) 11/16/19 09:40 ALT 21 U/L (<35) 11/16/19 09:40 Alkaline Phosphatase 62 U/L (38-126) 11/16/19 09:40 Creatine Kinase 145 U/L (30-135) H 11/17/19 04:30 CK-MB (CK-2) 2.00 ng/mL (<4.55) 11/17/19 04:30 Troponin I 0.076 ng/mL 11/18/19 05:59 NT-Pro-B Natriuret Pep 3390 pg/mL (<450) H 11/18/19 05:59 Total Protein 6.7 g/dL (6.3-8.2) 11/16/19 09:40 Albumin 3.8 g/dL (3.5-5.0) 11/16/19 09:40 Procalcitonin 5.90 ng/mL (0.00-0.08) H 11/16/19 18:35 TSH 0.57 uIU/mL (0.47-4.68) 11/18/19 05:59 Urine Color STRAW 11/19/19 13:40 Urine Appearance CLEAR 11/19/19 13:40 Urine pH 6.0 (5.0-9.0) 11/19/19 13:40 Ur Specific Jolon 1.005 11/19/19 13:40 Urine Protein NEGATIVE mg/dL (NEGATIVE) 11/19/19 13:40 Urine Glucose (UA) NEGATIVE mg/dL (NEGATIVE) 11/19/19 13:40 Urine Ketones NEGATIVE mg/dL (NEGATIVE) 11/19/19 13:40 Urine Blood SMALL (NEGATIVE) H 11/19/19 13:40 Urine Nitrite NEGATIVE (NEGATIVE) 11/19/19 13:40 Urine Bilirubin NEGATIVE (NEGATIVE) 11/19/19 13:40 Urine Urobilinogen NEGATIVE mg/dL (<2.0) 11/19/19 13:40 Ur Leukocyte Esterase NEGATIVE (NEGATIVE) 11/19/19 13:40 Urine WBC (Auto) 3 /HPF 11/19/19 13:40 Urine RBC (Auto) 2 /HPF 11/19/19 13:40 U Hyaline Cast (Auto) 1 /LPF 11/16/19 10:25 Urine Bacteria (Auto) 1+ /HPF 11/16/19 10:25 Urine WBC Clumps FEW /HPF 11/16/19 10:25 Squamous Epi Cells Auto <1 /HPF 11/19/19 13:40 Urine Mucus (Auto) RARE /LPF 11/19/19 13:40 Urine Ascorbic Acid NEGATIVE (NEGATIVE) 11/19/19 13:40 Influenza A (Rapid) NEGATIVE (NEGATIVE) 11/16/19 09:40 Influenza B (Rapid) NEGATIVE (NEGATIVE) 11/16/19 09:40 11/16/19 11/16/19 11/16/19 09:40 09:40 18:35 CK-MB (CK-2) Troponin I 0.059 0.224 NT-Pro-B Natriuret Pep 1140 H 11/16/19 11/17/19 11/18/19 22:16 04:30 05:59 CK-MB (CK-2) 2.00 Troponin I 0.300 0.197 NT-Pro-B Natriuret Pep 3390 H 11/18/19 05:59 CK-MB (CK-2) Troponin I 0.076 NT-Pro-B Natriuret Pep Impressions: Chest X-Ray 11/16/19 09:37 IMPRESSION: NO ACUTE RADIOGRAPHIC FINDING IN THE CHEST. Plan Plan of Treatment: The patient is discharged, in stable condition, to [facility] for short- term rehab. She is encouraged to follow-up with her primary care provider within 1 week of discharge from rehab. Complete full course of antibiotic therapy. Take other medication as prescribed. Eat a heart healthy/consistent carb diet. Do NOT smoke. Return to emergency department as needed for concerning symptoms. Recommend that the receiving facility/provider avoid benzodiazepines as the patient had prolonged confusion after a one-time dose of Ativan 0.5 mg p.o. Time Spent: Greater than 30 Minutes Stroke Is this a Stroke Patient?: No Acute Heart Failure - Is this a Heart Failure Patient?: No
[2019-11-21] MEDS: AMITRIPTYLINE HCL 25 MG TABLET PO SCH (21:57)
[2019-11-21] MEDS: ATORVASTATIN CALCIUM 10 MG TABLET PO SCH (21:57)
[2019-11-22] MEDS: ACETAMINOPHEN 325 MG TABLET PO PRN (00:09)
[2019-11-22] MEDS: CEPHALEXIN 250 MG CAPSULE PO SCH ×3 (00:10→11:04)
[2019-11-22] MEDS: LEVOTHYROXINE SODIUM 0.1 MG TABLET PO SCH (05:33)
[2019-11-22] MEDS: PREGABALIN 100 MG CAPSULE PO SCH (05:33)
[2019-11-22] MEDS: ENOXAPARIN SODIUM INJ 120 MG/0.8 ML DISP.SYRIN SUBCUT SCH (05:34)
[2019-11-22] MEDS: PANTOPRAZOLE SODIUM 20 MG TABLET.DR PO SCH (05:34)
[2019-11-22] MEDS: INSULIN REG, HUMAN 100 UNIT/ML 3 ML VIAL (PYX) SUBCUT SCH ×2 (07:53→11:02)
[2019-11-22] MEDS: METFORMIN HCL 500 MG TABLET PO SCH (08:02)
[2019-11-22] MEDS: PREDNISOLONE ACETATE 1% OPH SUSP 5 ML OS SCH (10:55)
[2019-11-22] MEDS: LUBIPROSTONE 24 MCG CAPSULE PO SCH (10:56)
[2019-11-22] MEDS: POTASSIUM CHLORIDE 10 MEQ TABLET.ER PO SCH (10:56)
[2019-11-22] MEDS: FENOFIBRATE NANOCRYSTALLIZED 145 MG TABLET PO SCH (10:56)
[2019-11-22] MEDS: METAXALONE 800 MG TABLET PO SCH (10:56)
[2019-11-22] MEDS: SITAGLIPTIN PHOSPHATE 50 MG TABLET PO SCH (10:56)
[2019-11-22] MEDS: CELECOXIB 200 MG CAPSULE PO SCH (10:56)
[2019-11-22] MEDS: ASPIRIN 81 MG TABLET, ENT COATED PO SCH (10:57)
[2019-11-22] MEDS: HYDROCHLOROTHIAZIDE 25 MG TABLET PO SCH (10:57)
[2019-11-22] MEDS: LOSARTAN POTASSIUM 50 MG TABLET PO SCH (10:57)
[2019-11-22] MEDS: LORATADINE 10 MG TABLET PO SCH (10:57)
--- NOTE | 2019-11-22 12:36 | PDOC PROGRESS REPORT ---
Subjective Progress Note for:: 11/22/19 Subjective:: Patient was seen on morning rounds. She was found resting in bed, comfortably, on room air. She is alert and oriented to self, place, and situation. She states she is feeling well today and looking forward to discharge to rehab. Patient denies fever, chills, chest pain, dyspnea, cough, abdominal pain, nausea vomiting or diarrhea. She had no questions or concerns. No concerns per nursing. Reason For Visit: UROSEPSIS Physical Exam Vital Signs: Temp Pulse Resp BP Pulse Ox 98.0 F 77 20 148/63 H 93 11/22/19 07:46 11/22/19 07:46 11/22/19 07:46 11/22/19 07:46 11/22/19 07:46 Intake & Output 11/21/19 11/22/19 11/23/19 06:59 06:59 06:59 Intake Total 1169 455 Output Total 25 Balance 1144 455 Weight 103.1 kg 103.1 kg General appearance: PRESENT: no acute distress, cooperative, morbidly obese, well-developed, well-nourished Head exam: PRESENT: atraumatic, normocephalic Eye exam: PRESENT: conjunctiva pink, EOMI, PERRLA. ABSENT: scleral icterus Mouth exam: PRESENT: moist, tongue midline Respiratory exam: PRESENT: clear to auscultation erika, symmetrical, unlabored, other - Room air. ABSENT: rales, rhonchi, wheezes Cardiovascular exam: PRESENT: RRR. ABSENT: diastolic murmur, rubs, systolic murmur Pulses: PRESENT: normal dorsalis pedis pul Vascular exam: PRESENT: normal capillary refill GI/Abdominal exam: PRESENT: normal bowel sounds, soft. ABSENT: distended, guarding, mass, organolmegaly, rebound, tenderness Rectal exam: PRESENT: deferred Extremities exam: PRESENT: full ROM. ABSENT: calf tenderness, clubbing, pedal edema Neurological exam: PRESENT: alert, awake, oriented to person, oriented to place, oriented to situation, CN II-XII grossly intact, other - Intermittently confused. ABSENT: motor sensory deficit Psychiatric exam: PRESENT: appropriate affect, normal mood. ABSENT: homicidal ideation, suicidal ideation Skin exam: PRESENT: dry, intact, warm. ABSENT: cyanosis, rash Results Laboratory Results: 11/21/19 04:20 03/22/20 05:59 11/16/19 11/16/19 11/16/19 09:40 09:40 18:35 Creatine Kinase CK-MB (CK-2) Troponin I 0.059 0.224 NT-Pro-B Natriuret Pep 1140 H 11/16/19 11/17/19 11/17/19 22:16 04:30 04:30 Creatine Kinase 145 H CK-MB (CK-2) 2.00 Troponin I 0.300 0.197 NT-Pro-B Natriuret Pep 11/18/19 11/18/19 05:59 05:59 Creatine Kinase CK-MB (CK-2) Troponin I 0.076 NT-Pro-B Natriuret Pep 3390 H Impressions: Chest X-Ray 11/16/19 09:37 IMPRESSION: NO ACUTE RADIOGRAPHIC FINDING IN THE CHEST. Assessment and Plan - Diagnosis (1) Proteus mirabilis infection Is this a current diagnosis for this admission?: Yes Plan: The urine had Proteus and E. coli. 1 set of blood cultures had Proteus and the other set of blood cultures for E. coli. Repeat blood cultures are negative at 24 hours. She is received 4 days of IV Rocephin. Transition to to p.o. Keflex to complete course of therapy (2) E coli bacteremia Is this a current diagnosis for this admission?: Yes Plan: As noted above both bacteria were in the urine and one blood culture set was positive for E. coli the other for Proteus. Both are sensitive to cephalospor ins; transition to p.o. Keflex for completion of course (3) UTI (urinary tract infection) Qualifiers: Urinary tract infection type: acute cystitis Hematuria presence: without hematuria Qualified Code(s): N30.00 - Acute cystitis without hematuria Is this a current diagnosis for this admission?: Yes Plan: Urine culture positive for Proteus Mirabella's and E. coli. Both sensitive to cephalosporins. Received 4 days of IV Rocephin. Transition to p.o. Keflex to complete course of therapy. (4) Acute metabolic encephalopathy Is this a current diagnosis for this admission?: Yes Plan: Multifactorial secondary to sepsis with urinary tract infection and exacerbated by use of PRN Ativan. Have discontinued all PRN sedating medications. Supportive care. Clear day/night cues. Fall precautions. No evidence of focal deficits necessitating stroke work-up or worsening infectious process. (5) Anxiety Is this a current diagnosis for this admission?: Yes Plan: Continue home dose Elavil Have discontinued PRN Ativan due to worsening confusion. (6) Chronic diastolic heart failure Is this a current diagnosis for this admission?: Yes Plan: The echocardiogram revealed grade 1/4 diastolic heart failure. Resume home dose telmisartan/HCTZ. Continue home dose statin aspirin therapy. Cardiac diet. Daily weights, strict I&O's (7) Chronic osteoarthritis Is this a current diagnosis for this admission?: Yes Plan: 11/16/2019 The patient sees a chief technician x ray. She has bad arthritis in both shoulders. She has a history of osteomyelitis in her lumbar spine with high likelihood of degenerative changes. She is on Skelaxin and Celebrex. Continue home dose of Skelaxin, Elavil, Celebrex, Lyrica. As needed tylenol or tramadol. (8) Constipation due to opioid therapy Is this a current diagnosis for this admission?: Yes Plan: Resolved. Continue bowel regimen milk of magnesia as needed and Amitiza (9) Decubitus ulcer of left perineal ischial region, stage 3 Is this a current diagnosis for this admission?: Yes Plan: Followed by the wound care center; nearly healed. 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 (11) Hyperglycemia due to type 2 diabetes mellitus Qualifiers: Diabetes mellitus custodial insulin use: without vermin exterminator use Qualified Code(s): E11.65 - Type 2 diabetes mellitus with hyperglycemia Is this a current diagnosis for this admission?: Yes Plan: Blood glucose is well controlled; continue home dose Januvia and metformin Accu-Cheks before meals and at bedtime with sliding scale insulin. Cardiac/consistent carb diet. Hypoglycemia protocol in place (12) Hypertension Qualifiers: Hypertension type: essential hypertension Qualified Code(s): I10 - Essential (primary) hypertension Is this a current diagnosis for this admission?: Yes Plan: Resume home dose telmisartan/hydrochlorothiazide. Cardiac diet. (13) Hypotension Qualifiers: Hypotension type: other hypotension type Qualified Code(s): I95.89 - Other hypotension Is this a current diagnosis for this admission?: Yes Plan: Resolved. (14) Hypothyroidism Qualifiers: Hypothyroidism type: unspecified Qualified Code(s): E03.9 - Hypothyroidism, unspecified Is this a current diagnosis for this admission?: Yes Plan: TSH 0.57 Continue 100 mcg levothyroxine daily (15) Leukocytosis Qualifiers: Leukocytosis type: bandemia Qualified Code(s): D72.825 - Bandemia Is this a current diagnosis for this admission?: Yes Plan: Resolved (16) Morbid obesity Is this a current diagnosis for this admission?: Yes Plan: Clearly a significant risk factor for the patient. Because of her arthritic issues and her advanced age she is not a candidate for a rigorous exercise program. Aggressive weight management through diet would be helpful. Cardiac/consistent carb diet (17) Non-healing wound of left heel Is this a current diagnosis for this admission?: Yes Plan: This wound was present on admission. The patient has been seen at the wound care center. I printed the last wound care center note. This is felt to be a [place] ulcer down to stage II. Currently utilizing Acticoat dressing covered with dry dressing and secured with tape. Change every 48 hours. Offload the heel. She will follow-up with the wound care center after discharge. (18) Physical deconditioning Is this a current diagnosis for this admission?: Yes Plan: PT/OT consultation. Plan to discharge to SNF (19) Pulmonary hypertension Is this a current diagnosis for this admission?: Yes Plan: Conservative treatment at this time. Aim for good blood pressure control and fluid balance. (20) Rectal prolapse Is this a current diagnosis for this admission?: Yes Plan: Continue to monitor. Continue to improve bowel regimen. Reduce if the rectum prolapses again. (21) Sepsis due to urinary tract infection Is this a current diagnosis for this admission?: Yes Plan: Resolved. (22) Degenerative disc disease Qualifiers: Spinal region: lumbar Qualified Code(s): M51.36 - Other intervertebral disc degeneration, lumbar region Is this a current diagnosis for this admission?: Yes Plan: Secondary to her morbid obesity, generalized osteoarthritis with age as well as a history of lumbar osteomyelitis. We will continue current regimen for pain management.
[2019-11-22 12:37] VITALS: BP 137/48
== END 2019-11-22 13:15 | DRG 871 ==
LOC: ER 09:21 → EH 12:54 → 4N 14:39
PROVIDERS: ADMIT Hospitalist; ATTEND Registered Nurse
DX: A41.51 Sepsis due to Escherichia coli [E. coli] (principal); G93.41 Metabolic encephalopathy; N30.00 Acute cystitis without hematuria; I50.32 Chronic diastolic (congestive) heart failure; M46.26 Osteomyelitis of vertebra, lumbar region; L97.429 Non-pressure chronic ulcer of left heel and midfoot with unspecified severity; Z68.41 Body mass index [BMI] 40.0-44.9, adult; E11.42 Type 2 diabetes mellitus with diabetic polyneuropathy; E03.9 Hypothyroidism, unspecified; E11.621 Type 2 diabetes mellitus with foot ulcer; F32.9 Major depressive disorder, single episode, unspecified; B96.4 Proteus (mirabilis) (morganii) as the cause of diseases classified elsewhere; I11.0 Hypertensive heart disease with heart failure; L89.329 Pressure ulcer of left buttock, unspecified stage; B96.20 Unspecified Escherichia coli [E. coli] as the cause of diseases classified elsewhere; K59.03 Drug induced constipation; M19.012 Primary osteoarthritis, left shoulder; E11.65 Type 2 diabetes mellitus with hyperglycemia; R79.89 Other specified abnormal findings of blood chemistry; M19.011 Primary osteoarthritis, right shoulder; F41.9 Anxiety disorder, unspecified; K62.3 Rectal prolapse; Z66 Do not resuscitate; E66.01 Morbid (severe) obesity due to excess calories; T40.2X5A Adverse effect of other opioids, initial encounter; I27.20 Pulmonary hypertension, unspecified; M51.36 Other intervertebral disc degeneration, lumbar region; Z79.890 Hormone replacement therapy; Z90.49 Acquired absence of other specified parts of digestive tract; Z87.891 Personal history of nicotine dependence; Z88.1 Allergy status to other antibiotic agents; Z79.899 Other long term (current) drug therapy; Z79.84 Long term (current) use of oral hypoglycemic drugs; Z82.49 Family history of ischemic heart disease and other diseases of the circulatory system
CPT/HCPCS: 36415; 51702; 71045; 80048; 80053; 81001; 82550; 82553; 82803; 82962; 83605; 83735; 83880; 84145; 84443; 84484; 85025; 85027; 85610; 87040; 87077; 87086; 87088; 87186; 87804; 93005; 93010; 93306; 96361; 96365; 99285; J0696; J1650; J1815; J2270; J3490; J7030; J7040; J7120; J7620

== ENCOUNTER → 2020-02-20 | Outpatient (CLI) | payer MEDICARE, OTHER ==
--- NOTE | 2020-02-20 15:52 | WOMENS IMAGING REPORT ---
EXAM DESCRIPTION: 3D SCREENING MAMMO BILAT IMAGES COMPLETED DATE/TIME: 02/20/2020 2:21 pm REASON FOR STUDY: Z12.31 ENCOUNTER FOR SCREENING MAMMOGRAM FOR MALIGNANT NEOPLASM OF BREAST Z12.31 ENCNTR SCREEN MAMMOGRAM FOR MALIGNANT NEOPLASM OF ABBIE COMPARISON: 02/28/2018, 03/19/2014, 04/21/2011 EXAM PARAMETERS: Views: Standard craniocaudal and mediolateral oblique views of each breast recorded using digital acquisition and breast tomosynthesis. Read with the assistance of CAD. .[facility] - [employer] Version 9.2 LIMITATIONS: None. FINDINGS: No suspicious masses, suspicious calcifications or architectural distortion. No areas of c oncern. IMPRESSION: NEGATIVE MAMMOGRAM. BIRADS 1. BREAST DENSITY: a. The breasts are almost entirely fatty. BIRAD: ASSESSMENT: 1 NEGATIVE RECOMMENDATION: ROUTINE SCREENING COMMENT: The patient has been notified of the results by letter per MQSA requirements. Additional no tification policies are in place for contacting patient with suspicious or incomplete findings. Quality ID #[id number]: The [employer] recommends an annual screening mammogram for women aged 40 years or over. This facility utilizes a reminder system to ensure that all patients receive reminder letters, and/or direct phone calls for appointments. This includes reminders for routine scr eening mammograms, diagnostic mammograms, or other Breast Imaging Interventions when appropriate. Th is patient will be placed in the appropriate reminder system. TECHNICAL DOCUMENTATION: FINDING NUMBER: (1) ASSESSMENT: (1) JOB ID: [id number] 2010 [employer]- All Rights Reserved Reading location - IP/workstation name: [email or web address]
== END ==
LOC: WI 13:42
PROVIDERS: ATTEND Internal Medicine
DX: Z12.31 Encounter for screening mammogram for malignant neoplasm of breast (principal)
CPT/HCPCS: 77063; 77067

== ENCOUNTER → 2020-09-19 | Outpatient (CLI) | payer MEDICARE, OTHER ==
--- NOTE | 2020-09-19 13:09 | RADIOLOGY REPORT (SQ) ---
EXAM DESCRIPTION: SHOULDER LEFT 2 OR MORE VIEWS IMAGES COMPLETED DATE/TIME: 09/19/2020 12:22 pm REASON FOR STUDY: (M75.52)BURSITIS OF LEFT SHOULDER;(M25.512)PAIN IN LEFT SHOULDER M75.52 BURSITIS OF LEFT SHOULDER M25.512 PAIN IN LEFT SHOULDER COMPARISON: None. NUMBER OF VIEWS: Three views. TECHNIQUE: Internal rotation, external rotation, and Y view images acquired of the left shoulder. LIMITATIONS: None. FINDINGS: MINERALIZATION: Normal. BONES: No acute fracture. No worrisome bone lesions. JOINTS: Severe degenerative joint disease in the glenohumeral joint. VISUALIZED LUNGS AND RIBS: No pneumothorax. No rib fracture. SOFT TISSUES: There narrowing of the subacromial space. OTHER: No other significant finding. IMPRESSION: Severe glenohumeral degenerative joint disease. Narrowing of the subacromial space sugg ests longstanding rotator cuff disease. TECHNICAL DOCUMENTATION: JOB ID: [id number] 2010 [employer]- All Rights Reserved Reading location - IP/workstation name: [email or web address]
== END ==
LOC: RAD 11:55
PROVIDERS: ATTEND Nurse Practitioner Family
DX: M19.012 Primary osteoarthritis, left shoulder (principal); M75.52 Bursitis of left shoulder; M25.512 Pain in left shoulder